=== PATIENT | male | born 1945 | race Caucasian/White ===

== ENCOUNTER 2020-03-09 13:30 | Outpatient (RCR) | payer MEDICARE, SELFPAY ==
--- NOTE | 2019-12-10 14:54 | PTOPEVAL ---
Thank you for referring Ky Winter to [facility]. Please review, sign, date and return this plan of care EDY. 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 He requires extensive therapy to address impairments of balance, strength, endurance, functional mobility and knowledge and use of prosthesis. Recommend additional PT 3x/wk x 8 wk. I agree with and certify that the following plan of care is medically necessary. Referring Physician Date Attending Provider: Jesus Trinh MD Referring Provider: *PT Outpatient Evaluation Start: 12/10/19 13:03 Freq: Status: Active Protocol: Document 12/10/19 13:05 CAP (Rec: 12/10/19 14:24 CAP [id number]) Therapy Assessment Status Assessment Status Assessment Status Evaluation Outpatient Past Medical History Past Medical History Source of Past Medical History Patient,Family/Significant Other Neurological History Hx Neurological Disorders No Significant History Cardiovascular History Hx Hypertension Yes Respiratory History Hx Respiratory Disorders No Significant History Gastrointestinal History Hx Gastrointestinal Disorders No Significant History Genitourinary History Hx Genitourinary Disorders No Significant History Musculoskeletal History Hx Amputation Yes: rea BKA Hx Joint Replacement Yes: rea TKR Evaluation Information Problem Diagnosis Rea BKA Cause PVD Additional Evaluation Detail rea TKR: right:10/14 and left: right and left 10/04/18 PVD rea shoulder impairments: receiving deep tissue lazer treatment for left shoulder. Subjective Information Reports his left foot started Query Text:As Reported By Patient/ to have pain and problems, Family developed osteomyelitis and then gangrene rea foot. He was provided shrinkers initially and then fitted for prosthesis 10/22/19. He was in [facility] following toe amp, then [place] for 2 wk for rehab and DC 10/19/18. He has been using a wc for primary mobility at home. He is performing daily UE resistance ex with theraband and resistance ex. He is unable to get in prone position. He is stretching in sidel
--- NOTE | 2020-01-09 16:22 | PTOPEVAL ---
Thank you for referring Ky Winter to [facility]. Please review, sign, date and return this plan of care EDY. Pt has received 14 therapy visits to address impairments related to his rea BKA. He is progressing with his functional mobility with improve balance, transfers and ambulation. He requires decreased assistance to manage his prosthesis. He is progressing towards his therapy goal. Cont PT 3x/wk x 4-6 wk. I agree with and certify that the following plan of care is medically necessary. Referring Physician Date Attending Provider: Jesus Trinh MD *PT Outpatient Evaluation Start: 12/10/19 13:03 Freq: Status: Active Protocol: Document 01/09/20 13:27 CAP (Rec: 01/09/20 14:25 CAP [email or web address]) Therapy Assessment Status Assessment Status Assessment Status Re-evaluation Evaluation Information Problem Diagnosis Rea BKA Cause PVD Additional Evaluation Detail rea TKR: right:10/14 and left: right and left 10/04/18 PVD rea shoulder impairments: receiving deep tissue lazer treatment for left shoulder. Subjective Information He is wearing his prosthesis Query Text:As Reported By Patient/ for 5 hours in the am and then Family again for 3-4 hours in the afternoon. He is walking daily in the house with his prosthesis. He cont to use the wc for primary mobility at home. He estimates he is walking 300-500 ft at home. Denies any increased pain with wearing the prosthesis at home. Ashlee made modification to ant tib region rea and rea femoral condyle region on rea prosthesis. Pain Assessment Timing of Pain Assessment Timing of Pain Assessment Re-assessment Pain Scale Pain Scale Used Numeric (1 - 10) Self Report Pain Assessment Bilateral Leg(s) Reported Pain Level 0 Pain Description Phantom Lowest Pain Intensity 0 Greatest Pain Intensity 4 Pain Score Pain Score 0: Self Report Lower Extremity Range of Motion Hip Range of Motion Left Hip Flexion Range of Motion - Active 90 Hip Extension Range of Motion - Active -10 Right Hip Flexion Range of Motion - Active 90 Hip Extension Range of Motion - Active -12 Lower Extremity Muscle Strength Testing Hip Strength Bilateral Hip Flexion S
--- NOTE | 2020-02-09 16:23 | PTOPEVAL ---
Thank you for referring Ky Winter to [facility]. Please review, sign, date and return this plan of care EDY. Pt has been seen for 26 therapy visits to address impairments related rea BKA prosthesis gait training. He demonstrates progress with functional mobility on sit<>stand, ambulation endurance, improved walking speed, and improve ability to negotiate steps and curb. He demonstrates improved understanding of application of prosthesis and sock ply to maintain proper fit. He is progressing towards his therapy goals and improved functional mobility. Recommend additional PT 2x/wk x 4 wk to achieve maximal potential. I agree with and certify that the following plan of care is medically necessary. Referring Physician Date Attending Provider: Jesus Trinh MD Re-Evaluation *PT Outpatient Evaluation Start: 12/10/19 13:03 Freq: Status: Active Protocol: Document 02/09/20 13:59 CAP (Rec: 02/09/20 14:56 CAP [email or web address]) Therapy Assessment Status Assessment Status Assessment Status Re-evaluation Evaluation Information Problem Diagnosis Rea BKA Cause PVD Additional Evaluation Detail rea TKR: right:10/14 and left: right and left 10/04/18 PVD rea shoulder impairments: receiving deep tissue lazer treatment for left shoulder. Subjective Information He reports he went out this Query Text:As Reported By Patient/ weekend and used his wc for Family mobility and did not perform community walking. He did more walking the house this weekend and side stepping at the counter. He is walking to/from the bathroom consistently. He walked the ramp more at home, but has not walked the incline on the driveway yet. He is going to hire a personal training to assist with gaining strength. He is wearing prosthesis 10-13 hours. Pain Assessment Timing of Pain Assessment Timing of Pain Assessment Re-assessment Pain Scale Pain Scale Used Numeric (1 - 10) Self Report Pain Assessment Bilateral Leg(s) Reported Pain Level 1 Pain Description Phantom Pain Frequency Chronic,Continuous Lowest Pain Intensity 1 Greatest Pain Intensity 2 Pain Score Pain Score 1: Self Report Lower Extremity Range of Motion Hip Range of Motion Left H
--- NOTE | 2020-03-09 16:13 | PTOPEVAL ---
Thank you for referring Ky Winter to [facility]. Please review, sign, date and return this plan of care EDY. Pt has received 34 therapy visits to address impairments related to rea BKA. He is progressing with his functional mobility with ambulation endurance, performance on steps and curb step. He is trialing progressing to a quad cane for household mobility. He remains limited with his ability to get out a chair. He requires additional PT 1x/wk x 4 wk to finalize treatment. I agree with and certify that the following plan of care is medically necessary. Referring Physician Date Attending Provider: Jesus Trinh MD Referring Provider: *PT Outpatient Evaluation Start: 12/10/19 13:03 Freq: Status: Active Protocol: Document 03/09/20 13:23 [facility] (Rec: 03/09/20 14:23 [facility] [email or web address]) Therapy Assessment Status Assessment Status Assessment Status Re-evaluation Evaluation Information Problem Diagnosis Rea BKA Cause PVD Additional Evaluation Detail rea TKR: right:10/14 and left: right and left 10/04/18 PVD rea shoulder impairments: receiving deep tissue lazer treatment for left shoulder. Subjective Information He is wearing 5 ply on right Query Text:As Reported By Patient/ and 6 ply on left. He is Family wearing prosthesis 12-13 hours without skin issues. Pt able to verbalize proper sock ply adjustment to ensure proper fit. His performs skin inspection of the limbs every night. His performs 50% of donning prosthesis. He is walking more at home in the house and outside with his ww and prosthesis. He has been able to set-up 2 chairs at home to sit on. He c/o back pain with prolonged standing and walking. Pain Assessment Timing of Pain Assessment Timing of Pain Assessment Re-assessment Pain Scale Pain Scale Used Numeric (1 - 10) Self Report Pain Assessment Bilateral Leg(s) Reported Pain Level 0 Pain Score Pain Score 0: Self Report Lower Extremity Muscle Strength Testing Hip Strength Bilateral Hip Flexion Strength 5 Normal Hip Extension Strength 4+ Good + Hip Abduction Strength 3+ Fair + Transfer Assessment Chair Transfer Assessment Chair Transfer Assistive Devices
--- NOTE | 2020-03-11 10:16 | PCPTNOTE ---
This treatment is being continued on visit number 35 on account [id number]. Please see documentation on both accounts to view progress. Completed interventions, outcomes, and problems have been marked as Inactive to facilitate the copying of the Care plan routine for recurring accounts.
== END 2020-03-09 23:59 | disposition home or self-care (01) ==
LOC: ANHPT 13:30
PROVIDERS: PCP Family Medicine Adolescent Medicine; Visit Provider Family Medicine Adolescent Medicine
DX: Z47.81 Encounter for orthopedic aftercare following surgical amputation (principal); Z89.512 Acquired absence of left leg below knee; Z89.511 Acquired absence of right leg below knee
CPT/HCPCS: 97110; 97116; 97163; 97530; 97761

== ENCOUNTER 2020-04-12 13:30 | Outpatient (RCR) | payer MEDICARE, SELFPAY ==
--- NOTE | 2020-03-11 10:07 | PCPTNOTE ---
The treatment documented on this account is a continuation of the treatment documented on visit number [id number]. Please see documentation on both accounts to view progress. The Plan of Care has been transitioned and updated within the new V#. I have addressed and agree with the discipline specific Problems, Interventions, and Goals for the current certification period. Completed interventions, outcomes, and problems have been marked as Inactive to facilitate the copying of the Care plan routine for recurring accounts.
--- NOTE | 2020-04-12 17:19 | PTOPEVAL ---
Thank you for referring Ky Winter to [facility] The patient has reached maximal potential with skilled therapy services at this time. Will DC skilled therapy with patient to continue with his home program. I agree with and certify that the following plan of care is medically necessary. Referring Physician Date Attending Provider: Jesus Trinh MD Referring Provider: Therapy Discharge Note *PT Outpatient Evaluation Start: 03/11/20 10:09 Freq: Status: Active Protocol: Document 04/12/20 13:34 CAP (Rec: 04/12/20 14:32 CAP [id number]) Therapy Assessment Status Assessment Status Assessment Status Re-evaluation Evaluation Information Problem Diagnosis Isaac BKA Cause PVD Additional Evaluation Detail isaac TKR: right:10/14 and left: right and left 10/04/18 PVD isaac shoulder impairments: receiving deep tissue lazer treatment for left shoulder. Subjective Information He is wearing 6 on right and Query Text:As Reported By Patient/ left prosthesis. He is wearing Family prosthesis all day without problems. His performs 50% of donning prosthesis. He continues to progress his walking more at home and outside with his ww and prosthesis. He c/o back pain with prolonged standing and walking. Reports he is walking 5 laps at the gym for 400 ft each with a rest between laps. He continues to work with the field sales trainer for LE and core strengthening. He continues to have difficulty getting out of a lower chair due to maintaining position of LE. He also has difficulty with desk length arm rest with his transfers. Pain Assessment Timing of Pain Assessment Timing of Pain Assessment Re-assessment Self Report Self Report Pain Level 0 Pain Scale Pain Scale Used Numeric (1 - 10) Pain Score Pain Score 0: Self Report Transfer Assessment Chair Transfer Assessment Chair Transfer Assistive Devices None Ambulation Assistive Devices Cane, Small Base Quad,Walker,
== END 2020-04-13 13:58 | disposition home or self-care (01) ==
LOC: ANHPT 13:30
PROVIDERS: PCP Family Medicine Adolescent Medicine; Visit Provider Family Medicine Adolescent Medicine
DX: Z47.81 Encounter for orthopedic aftercare following surgical amputation (principal); Z89.512 Acquired absence of left leg below knee; Z89.511 Acquired absence of right leg below knee
CPT/HCPCS: 97116; 97530

== ENCOUNTER 2022-09-28 23:15 | Inpatient (IN) | payer MEDICARE, SELFPAY ==
--- NOTE | ~2022-09-28 | CT_ITS ---
CT Abdomen and Pelvis with contrast. History: Abdominal pain. Spiral CT of the abdomen and pelvis was performed after the administration of intravenous contrast. 1 00 cc of Omnipaque 350 was administered intravenously without complication. Dose reduction technique was used on this scan by utilizing automated exposure control and iterative reconstruction technique. The dose-length product (DLP) was 1560.50 mGy-cm. Findings: Scans through the lung bases demonstrate mild atelectatic change. Several small hepatic cysts are present. The spleen, pancreas, gallbladder, and adrenal glands are wi thin normal limits. There is mild bilateral hydronephrosis. No evidence of aortic aneurysm. No lymph adenopathy is seen. There is no evidence of bowel obstruction. There is probable mild inflammatory change at the sigmoid colon with underlying diverticular disease, compatible with mild acute diverticulitis. No abscess or free air.. Images through the pelvis were performed. Urinary bladder unremarkable. Prostate gland and seminal ve sicles are unremarkable. No ascites is seen. Impression: Acute sigmoid diverticulitis. No abscess or free air. Mild bilateral hydronephrosis. Reviewed, dictated and finalized at location . 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 No abscess or free air. Mild bilateral hydronephrosis.
[2022-09-28 23:20] VITALS: BP 149/88; PULSE 120; RESP 20; TEMP 37.4; O2SAT 99
[2022-09-29] VITALS (22 sets, daily range): BP systolic 114–147; BP diastolic 35–101; PULSE 54–122; RESP 15–25; TEMP 37.1–37.3; O2SAT 95–100; BMI 55.7
[2022-09-29] MEDS: LACTATED RINGERS 1,000 ML 999 ML IV CONT ×2 (02:24→02:25)
[2022-09-29] MEDS: ONDANSETRON INJ 4 MG/2 ML VIAL IV PUSH (02:25)
[2022-09-29] MEDS: LOPERAMIDE HCL 2 MG CAPSULE 4 MG PO (02:33)
[2022-09-29 03:05] LABS: Basophils Absolute Auto 0.1 K/mm3 (0.0-0.1); Basophils Percent Auto 0.3 % (0.2-1.2); Eosinophils Percent Auto 0.1 % (0-4.4); Hematocrit 36.7 % (42.0-52.0); Hemoglobin 12.5 g/dL (14.0-18.0); Immature Granulocyte Percent A 0.5 % (0-0.5); Lymphocytes Absolute Auto 0.99 K/mm3 (0.9-3.2); Lymphocytes Percent Auto 5.2 % (18.3-44.2); Mean Corpuscular HGB Conc 34.1 g/dl (32-36); Mean Corpuscular Hemoglobin 30.2 pg (26-34); Mean Corpuscular Volume 88.6 fl (80-100); Mean Platelet Volume 9.1 fl (7.4-10.4); Monocytes Absolute Auto 2.2 K/mm3 (0.1-0.6); Monocytes Percent Auto 11.7 % (2.6-8.5); Neutrophils Absolute Auto 15.6 K/mm3 (1.3-6.7); Neutrophils Percent Auto 82.2 % (45.5-73.1); Platelet Count Result 235 k/mm3 (150-375); Red Blood Count 4.14 M/mm3 (4.6-6.20); Red Cell Distribution Width 13.3 % (11.5-14.5); White Blood Count 18.9 K/mm3 (4.5-10.0)
[2022-09-29 03:16] LABS: Lipase 25 U/L (23-300)
[2022-09-29 03:34] LABS: Alanine Aminotransferase 18 U/L (6-50); Albumin Level 3.8 g/dL (3.5-5.1); Alkaline Phosphatase 60 U/L (38-126); Anion Gap 4 mmol/L (8-16); Aspartate Amino Transferase 35 U/L (17-59); Bilirubin,Total 0.5 mg/dL (0.2-1.3); Blood Urea Nitrogen 7 mg/dL (9-20); Calcium 7.6 mg/dL (8.4-10.2); Carbon Dioxide 25 mmol/L (22-30); Chloride 88 mmol/L (98-107); Estimated CRCL calculation 129 ml/min; Estimated Glomerular Filt Rate > 60; Glucose 122 mg/dL (65-110); Sodium 117 mmol/L (137-145)
--- NOTE | 2022-09-29 04:16 | ECG_ITS ---
Measurements Intervals [place] Rate: 110 P: [place]: 0 QRS: 81 QRSD: 145 T: 28 QT: 320 QTc: 435 Interpretive Statements ATRIAL FIBRILLATION WITH RAPID VENTRICULAR RESPONSE RIGHT BUNDLE BRANCH BLOCK [120+ ms QRS DURATION, UPRIGHT V1, 40+ ms S IN I/aVL/V4/V5/V6] ABNORMAL ECG NO PREVIOUS ECG AVAILABLE FOR COMPARISON Electronically Signed On 09-29-2022 14:49:43 [employer] by Daniel Roman M.D.
[2022-09-29 04:52] LABS: Influenza A QL RT-PCR Negative (Negative); Influenza B QL RT-PCR Negative (Negative); RSV RNA, RT-PCR Negative (Negative); SARS-CoV-2 RNA PCR Negative
[2022-09-29 06:02] LABS: Sodium 125 mmol/L (137-145)
--- NOTE | 2022-09-29 06:11 | ED.NAVMDI ---
HPI - Nausea/Vomiting/Diarrhea General Chief complaint: Nausea/Vomiting/Diarrhea Stated complaint: diarrhea Time Seen by Provider: 09/29/22 02:14 History of Present Illness HPI Narrative: Patient has been started on multiple rounds of antibiotics including Augmentin, after which she had profuse diarrhea, he is now having some diarrhea that he is becoming extremely weak and cannot walk. Denies abdominal pain, fevers or chills. Related Data Home Medications Medication Instructions Recorded Confirmed aspirin 325 mg tablet 325 mg PO DAILY 03/28/21 09/29/22 coenzyme Q10 200 mg capsule 200 mg PO DAILY 03/28/21 09/29/22 cyclosporine 0.05 % eye drops 1 drp EACH EYE Q12H 03/28/21 09/29/22 diphenhydramine HCl 25 mg capsule 25 - 50 mg PO HS PRN Sleep 03/28/21 09/29/22 (Benadryl) docusate sodium 100 mg capsule 100 mg PO HS 03/28/21 09/29/22 (Colace) flaxseed oil 1,300 mg-omega 3,6,9 2 cap PO DAILY 03/28/21 09/29/22 845 mg-117 mg-117 mg capsule gabapentin 300 mg capsule 900 mg PO HS 03/28/21 09/29/22 sielggye-zlq-xylca acid 300 1 tablet PO DAILY 03/28/21 09/29/22 mcg-lycopene 600 mcg-lutein 300 mcg tablet (Centrum Silver Ultra Men's) vitamin B complex 1 tablet PO DAILY 03/28/21 09/29/22 melatonin 3 mg tablet 3 mg PO QHS PRN sleep 08/02/22 09/29/22 Allergies Allergy/AdvReac Type Severity Reaction Status Date / Time Opioids - Morphine Analogues AdvReac Severe severee Verified 08/02/22 13:52 itching augmentin AdvReac Intermediate Diarrhea Uncoded 09/22/22 10:09 Review of Systems Review of Systems: CONST: No fever. HEENT: No sore throat C/V: No chest pain RESP: No cough GI: Reports diarrhea : No dysuria. M/S: No joint pain. SKIN: No rash. NEURO: [No headache or focal numbness or weakness] PSYCH: [No depression] PMFSH Past Medical History Medical History Back pain BPH (benign prostatic hyperplasia) Cataracts, bilateral HTN (hypertension) Nocturia Normal colonoscopy 05/14 Repeat 05/25 Osteoarthritis of knees, bilateral Osteoarthritis of shoulders, bilateral Peripheral arterial disease Phantom pain Urinary incontinence Urinary urgency Surgical History Surgical History History of appendectomy History of inguinal hernia repair 2017 S/P bilateral below knee amputation 2018 Family History Family History Father Heart disease Hypertension Mother Acute myocardial infarction Social History Social History Social History: Patient lives with his in a 1 level home with 2 stairs to enter. Patient has a ramp that he uses. Patient was independent prior with no assistive devices prior to his bilateral below-knee amputation. 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 Smoking status: Never smoker Second hand tobacco smoke exposure: No Alcohol intake: current Drinks per week: 7 Alcohol use details: one glass wine ,per week Substance use type: does not use Living arrangements: with family Occupation/Education: retired Gender identity (if verbalized by the patient): Male Sexual Orientation (if Verbalized by the Patient): Straight or Heterosexual Agree to blood products: Yes Exam Narrative: EXAMINATION OF ORGAN SYSTEMS/BODY AREAS: Constitutional: Vital signs per nursing GENERAL:[No acute distress, non-toxic appearing.] HEAD: Normal with no signs of head trauma. EYES: EOMI, conjunctiva normal ENT: Hearing grossly intact LUNGS: Nonlabored breathing. HEART: [Regular rate and rhythm] ABD: [Soft], [mildly tender to palpation especially lower abdomen] EXT: Bilateral BKA without any signs of infection or tenderness SKIN: [No rashes or lesions.] NEURO: [Alert and oriented x 3. No gross focal sensory or strength deficits.] PSYCH: Normal affect Course [place]
[2022-09-29 06:56] LABS: Anion Gap 3 mmol/L (8-16); Blood Urea Nitrogen 6 mg/dL (9-20); Calcium 7.5 mg/dL (8.4-10.2); Carbon Dioxide 27 mmol/L (22-30); Chloride 91 mmol/L (98-107); Estimated CRCL calculation 110 ml/min; Estimated Glomerular Filt Rate > 60; Glucose 122 mg/dL (65-110); Potassium 4.3 mmol/L (3.4-5.0); Sodium 121 mmol/L (137-145)
--- NOTE | 2022-09-29 06:58 | PC.NURSE ---
Pt cleaned up x3 from incontinent bowel movements. Linens and brief changed. Pt remains resting in bed. NAD noted at this time. Will continue to monitor.
[2022-09-29 08:27] LABS: Toxigenic C. Diff POSITIVE (NEGATIVE)
--- NOTE | 2022-09-29 08:34 | PC.NURSE ---
Notify Dr. Andrade regarding sodium level.
--- NOTE | 2022-09-29 11:20 | ADMGEN ---
This patient, Ky Winter, was admitted to 2 Medical Room 256-01. Patient/family oriented to hospital policies and general routines including ID bracelet, bed and alarms, visiting hours, pain management, procedures, bathroom and other care routines, personal items, smoking policy, room service/diet, and visiting hours. Information on how to activate the Rapid Response Team has been discussed. Patient/Family are encouraged to report perceived risks to care and to ask questions if they do not understand what they are told or what they should do.
--- NOTE | 2022-09-29 13:07 | PM.CNNEP ---
Assessment and Plan Assessment and plan (1) Hyponatremia: Code(s): E87.1 - Hypo-osmolality and hyponatremia Status: Acute Assessment and Plan: acute suspicion falls on hypovolemia secondary to GI losses improvement noted with IVF resuscitation goal of therapy is a rate of change of 6 - 8mmol/L in 24 hours check TSH, cortisol, SPEP, UPEP, and serum/urine osmo check urine electrolytes restart normal saline follow serial sodium levels (2) C. difficile colitis: Code(s): A04.72 - Enterocolitis due to Clostridium difficile, not specified as recurrent Status: Acute Assessment and Plan: positive by stool testing started on oral vancomycin supportive care (3) HTN (hypertension): Code(s): I10 - Essential (primary) hypertension Status: Chronic Assessment and Plan: reasonable control at this time follow trend of hemodynamics Long extensive discussion (greater than 20 minutes) with the patient as well as at bedside with regard to the nature of his hyponatremia, the necessity of frequent blood work/tests to ensure adequate and appropriate correction of his electrolyte as well as close monitoring in general. They both appeared voiced understanding. Will continue to follow. History of Present Illness Reason for Consult Consult date: 09/29/22 Reason for consult: hyponatremia Chief Complaint Chief complaint: AFIB RVR, Dehydration, Colitis, HypoNa History of Present Illness Narrative: The patient is a 77-year-old male with a past medical history as outlined below who presented to [facility] Emergency room for further evaluation of ongoing diarrhea. According to the patient and his , he has been treated with at least three separate rounds of antibiotics for treatment of a possible cellulitis of his amputation stump. On his 2nd round of antibiotics, he developed diarrhea and he was subsequently switched to another antibiotic on the assumption that this was a side effect from the medication. However he continued to have diarrhea even after the medication change. He reports that his stools are quite watery and occurred at least three to 4 times a day if not more. No apparent evidence of blood but he has noticed a significant amount of diarrhea that seems to be getting worse. He denies any nausea or vomiting associated with the diarrhea. His major concern has been that with the ongoing diarrhea he is becoming increasingly weak and fatigued to the point where he is unable to ambulate as he normally does. He also reports some mild lightheadedness with position changes as well. Given these constellation of symptoms, he presented to the ER for further assessment. Workup and evaluation in the emergency room demonstrated the patient to be hemodynamically stable although he was slightly tachycardic but he also has a history of atrial fibrillation. Routine blood tests were significant for a marked leukocytosis and a sodium of 117. given the history as provided, there was a concern for significant volume depletion and he received 2 L of IV fluids in the emergency room with improvement in his heart rate and some mild improvement in his sodium level as well. Stool studies were ordered on the assumption of C diff colitis being the etiology of his diarrhea and he was empirically started on oral vancomycin as well. He was subsequently admitted to the hospital for further evaluation and therapy Since his admission, he appears to be doing reasonably well other than some discomfort with placement of his Castro catheter that was done in the ER. He appears to have no neurological sequelae with regard to his low sodium level and as far as he is aware, he has never had this issue/problem before. Renal consultation was requested due to his acute hyponatremia. As mentioned, he has never had any issues or problems with hyponatremia in the past and his recent blood test done in th
[2022-09-29] MEDS: VANCOMYCIN ORAL 125 MG/2.5 ML SYRUP PO ×2 (13:54→18:13)
[2022-09-29 15:37] LABS: Anion Gap 4 mmol/L (8-16); Blood Urea Nitrogen 6 mg/dL (9-20); Calcium 7.4 mg/dL (8.4-10.2); Carbon Dioxide 29 mmol/L (22-30); Chloride 89 mmol/L (98-107); Estimated Glomerular Filt Rate > 60; Glucose 107 mg/dL (65-110); Potassium 4.2 mmol/L (3.4-5.0); Sodium 122 mmol/L (137-145)
[2022-09-29] MEDS: SODIUM CHLORIDE 0.9% IV 1,000 ML 50 ML IV CONT (18:14)
[2022-09-29 19:41] LABS: Anion Gap 2 mmol/L (8-16); Blood Urea Nitrogen 7 mg/dL (9-20); Calcium 7.2 mg/dL (8.4-10.2); Carbon Dioxide 29 mmol/L (22-30); Chloride 90 mmol/L (98-107); Estimated Glomerular Filt Rate > 60; Glucose 141 mg/dL (65-110); Potassium 3.8 mmol/L (3.4-5.0); Sodium 121 mmol/L (137-145)
--- NOTE | 2022-09-29 20:04 | PC.NURSE ---
Dr Gay notified about pt's sodium level of 121 @ 19:55. No new orders.
[2022-09-29 23:15] LABS: Sodium 126 mmol/L (137-145)
--- NOTE | 2022-09-29 23:21 | PC.NURSE ---
Dr Gay notified about pt's Sodium level of 126
[2022-09-30] VITALS (10 sets, daily range): BP systolic 110–145; BP diastolic 49–64; PULSE 72–91; RESP 14–20; TEMP 36.6–37; O2SAT 94–98
--- NOTE | 2022-09-30 01:26 | PM.IMHP ---
H&P: HPI History of Present Illness Date/Time: 09/30/22 01:26 Chief Complaint: Diarrhea Narrative: 77-year-old male with past medical history of bilateral lower extremity BKA, hypertension, hyperlipidemia, peripheral artery disease and phantom pain syndrome who presented to the ER with diarrhea. The patient had evidently been treated with antibiotics 3 times this month. The patient was evidently having some erythema is stump site and was treated for cellulitis. He received antibiotics with amoxicillin for a couple of days earlier in the month. Then on the he was treated with Augmentin for 4 days. He developed diarrhea and was switched to Keflex. Then the patient continued to have diarrhea. Stools were watery and occurring at least 3 to 4 times a day. They were nonbloody and brown but large volume. He denied any associated abdominal pain. He denies any associated nausea or vomiting. He has become so weak that he cannot walk. He ambulates with his prosthetics and canes. He was having some lightheadedness with position changes. He denies any associated fevers or chills. In the ER he was found to be profoundly hyponatremic with a sodium of 117 andmarked leukocytosis and AFib RVR. He received 2 L LR for fluid resuscitation with improvement in his heart rate down to the 90s to low 100s. He denied any significant palpitations. He has not had any lower extremity swelling. In the ER Castro catheter was placed. The patient states that he has chronic urinary frequency at night but was not having difficulty emptying his bladder. In the ER Castro was placed but was traumatic. It took 2 attempts the patient has dried blood at is meatus. He reports that it is extremely painful if he tries to urinate with the catheter in. He does have a history of BPH but states that he usually empties his bladder. His main complaint is more nocturia which is chronic and not a new problem. Review of Systems Review of Systems: 12 systems were reviewed with pertinent positives and negatives per HPI. Except as documented in the HPI, all other systems were reviewed and are negative. [facility] Past Medical History Medical History (Updated 09/30/22 @ 01:29 by Alexia Baltazar DO) Back pain BPH (benign prostatic hyperplasia) Cataracts, bilateral maturing HTN (hypertension) Hyperlipemia Normal colonoscopy 05/14 Repeat 05/25 Optic nerve atrophy Osteoarthritis of knees, bilateral Osteoarthritis of shoulders, bilateral Peripheral arterial disease Phantom pain Surgical History Surgical History (Updated 09/30/22 @ 01:29 by Alexia Baltazar DO) History of appendectomy History of inguinal hernia repair 2017 History of right knee joint replacement S/P bilateral below knee amputation 2018 Family History Family History Father Heart disease Hypertension Mother Acute myocardial infarction Social History Social History Social History: Patient lives with his in a 1 level home with 2 stairs to enter. Patient has a ramp that he uses. Patient was independent prior with no assistive devices prior to his bilateral below-knee amputation. Patient was also working full-time in the [employer] industry. Smoking status: Never smoker Second hand tobacco smoke exposure: No Alcohol intake: current Drinks per week: 14 Alcohol use details: 1-2 glasses of wine daily Substance use: never Lack of Transportation: No Lack of Food: Never True Current Housing: I Have Housing Concerned About Future Housing: No Difficulty Paying Gas/Electric Bills: No Difficulty Paying for Meds: No Currently Unemployed: No Education: Bachelor's Degree Difficulty w/ Childcare or Family Care: No Living arrangements: with family Occupation/Education: retired Gender identity (if verbalized by the patient): Male Sexual Orientation (if Verbalized
[2022-09-30 01:45] LABS: Creatinine Urine 175.5 mg/dL; Total Protein Urine Random 84 mg/dL; Ur Ttl Prot Creatinine Ratio 0.48 mg/mg (0-0.20); Urea Random Urine 888 MG/DL
[2022-09-30] MEDS: VANCOMYCIN ORAL 125 MG/2.5 ML SYRUP PO ×5 (02:06→23:21)
[2022-09-30] MEDS: GABAPENTIN 300 MG CAPSULE 600 MG PO ×4 (02:07→21:19)
[2022-09-30 03:43] LABS: Anion Gap 2 mmol/L (8-16); Blood Urea Nitrogen 6 mg/dL (9-20); Calcium 7.1 mg/dL (8.4-10.2); Carbon Dioxide 29 mmol/L (22-30); Chloride 96 mmol/L (98-107); Creatine Kinase 83 U/L (55-170); Estimated Glomerular Filt Rate > 60; Glucose 102 mg/dL (65-110); Phosphorus 2.1 mg/dL (2.5-4.5); Potassium 3.9 mmol/L (3.4-5.0); Sodium 127 mmol/L (137-145)
--- NOTE | 2022-09-30 04:58 | PC.NURSE ---
Dr Gay notified about sodium level of 127 @ 04:15. New orders received for D5w @ 200 cc/h for 2 hours, and renal function panel upon completion. New orders entered.
[2022-09-30 05:40] LABS: Free T4 Free Thyroxine Reflex 1.25 ng/dL (0.78-2.19)
[2022-09-30 06:04] LABS: Hematocrit 33.9 % (42.0-52.0); Hemoglobin 11.4 g/dL (14.0-18.0); Mean Corpuscular HGB Conc 33.6 g/dl (32-36); Mean Corpuscular Hemoglobin 29.8 pg (26-34); Mean Corpuscular Volume 88.7 fl (80-100); Mean Platelet Volume 9.4 fl (7.4-10.4); Platelet Count Result 259 k/mm3 (150-375); Red Blood Count 3.82 M/mm3 (4.6-6.20); Red Cell Distribution Width 13.4 % (11.5-14.5); White Blood Count 13.2 K/mm3 (4.5-10.0)
[2022-09-30 06:21] LABS: Total Triiodothyronine (T3) 0.91 NG/ML (0.97-1.69)
[2022-09-30 07:12] LABS: Anion Gap 2 mmol/L (8-16); Blood Urea Nitrogen 5 mg/dL (9-20); Carbon Dioxide 27 mmol/L (22-30); Chloride 98 mmol/L (98-107); Estimated Glomerular Filt Rate > 60; Glucose 97 mg/dL (65-110); Phosphorus 2.4 mg/dL (2.5-4.5); Potassium 4.1 mmol/L (3.4-5.0); Sodium 127 mmol/L (137-145)
[2022-09-30] MEDS: cycloSPORINE 0.4 ML OPHTH SOLUTION 1 DROP EACH EYE ×2 (09:02→21:20)
[2022-09-30] MEDS: VITAMIN B COMPLEX CAPSULE 1 CAP PO (09:03)
[2022-09-30] MEDS: MIRABEGRON 50 MG ER TABLET PO (09:03)
[2022-09-30] MEDS: ASPIRIN 325 MG TABLET PO (09:03)
[2022-09-30] MEDS: CLOPIDOGREL BISULFATE 75 MG TABLET PO (09:03)
[2022-09-30] MEDS: FINASTERIDE 5 MG TABLET PO (09:03)
[2022-09-30] MEDS: LOSARTAN POTASSIUM 100 MG TABLET PO (09:03)
[2022-09-30] MEDS: ACYCLOVIR 400 MG TABLET PO ×2 (09:04→17:26)
[2022-09-30] MEDS: NEBIVOLOL HCL 5 MG TABLET 10 MG PO (09:04)
[2022-09-30] MEDS: TAMSULOSIN HCL 0.4 MG CAPSULE PO (09:04)
[2022-09-30] MEDS: amLODIPine BESYLATE 5 MG TABLET PO (09:04)
[2022-09-30] MEDS: DEXTROSE 5% IN WATER 500 ML 200 ML IV CONT (09:05)
[2022-09-30] MEDS: OPTI-GEN TAB 1 TABLET PO (09:11)
[2022-09-30] MEDS: SIMVASTATIN 10 MG TABLET PO (09:11)
--- NOTE | 2022-09-30 12:57 | PM.IMPN ---
Progress Note: A&P Assessment and Plan (1) C. difficile colitis: Code(s): A04.72 - Enterocolitis due to Clostridium difficile, not specified as recurrent Status: Acute Assessment and Plan: Continue p.o. vancomycin. Monitor stool output. Avoid (2) Acute hyponatremia: Code(s): E87.1 - Hypo-osmolality and hyponatremia Status: Acute Assessment and Plan: The patient's sodium increased [id number] after 2 L of LR. Nephrology was consulted by my self. I discussed the patient's case with Nephrology who agreed with plan to hold any other fluids until repeat sodium levels are available. We would want to avoid rapid over-correction of sodium. Will check serial electrolyte panels. (3) Acute dehydration: Code(s): E86.0 - Dehydration Status: Acute Assessment and Plan: The patient responded well to the initial 2 L fluid bolus and heart rate has improved. Urine output has been adequate. Monitor I&O's closely. ER had placed a Castro catheter although the patient was not having symptoms of retention and has chronic nocturia. Will discontinue Castro catheter at this time. If the patient needs we may use a pure wick system to obtain strict I&O's if patient is having difficulty with urinary incontinence. (4) BPH (benign prostatic hyperplasia): Code(s): N40.0 - Benign prostatic hyperplasia without lower urinary tract symptoms Status: Acute Assessment and Plan: Given the patient's history of BPH when we take the patient's catheter on he may have recurrent urinary retention. He will need to be monitored for this. The patient is having significant discomfort with the Castro catheter in place. Catheter will be removed. Will continue patient's home Proscar and Flomax Plan Hyponatremia likely from volume depletion improving na 127 this mornign continue IVF per nephrology monitor C diff colitis improving continue oral Vanc monitor Dehydration continue IVF as above monitor BPH Continue home Tamsulosin monitor PAD double amputation Phantom pain DVT prohylaxis Sub lovenox Subjective Date/time seen: 09/30/22 12:57 Presented to the ER because of frequent fall and diarrhea. Hyponatremia noted in the ER, Stool studies obtain and PO Vancomycin started. apparently he had a traumatic catheterization in the ER and later removed, he is back on his home tamsulosin. stated diarrhea has resolved. Review of Systems Review of Systems: All systems reviewed & are unremarkable except as noted in HPI and below Exam Narrative: Weight 104.8 kg BMI 55.7 Alert and oriented in no acute distress RS: clear to ausculation GI no tender, non distended, no palpable mass and BS present CVS S1 and S2, present, RRR no murmurs EXtremities bilateral LE amputation NEuro: alert and oriented and non focal SKin: No rash or ulcer noted. Const: Other: No acute distress, morbidly obese, lying flat in bed with snoring respirations HENMT: Other: Mucous membranes are tacky, no oral pharyngeal erythema, crowded posterior oropharynx positive conjunctival pallor, head is normocephalic atraumatic Eyes: Other: Pupils are equal and reactive, positive conjunctival pallor, no scleral icterus, developing cataract Neck: Other: Large neck circumference, no JVD Resp: Other: Clear to auscultation bilaterally, no increased work of breathing Cardio: Other: Irregularly irregular, rate controlled, 2+ bilateral radial pulses GI: Other: Obese, nontender, normoactive bowel sounds, no organomegaly : Other: Castro catheter in place with dark yellow urine, blood at the ureteral meatus. Skin: Other: No erythema of the bilateral lower extremity stumps, no jaundice, no pallor Neuro: Other: Alert oriented x4, speech is clear, no facial asymmetry, no localizing neurologic deficits noted during the course of casual conversation Extrem: Other:
[2022-09-30 13:06] LABS: Sodium 126 mmol/L (137-145)
--- NOTE | 2022-09-30 13:38 | PM.PNNEP ---
Progress Note: A&P Assessment and Plan (1) Hyponatremia: Code(s): E87.1 - Hypo-osmolality and hyponatremia Status: Acute Assessment and Plan: acute suspicion falls on hypovolemia secondary to GI losses improvement noted with IVF resuscitation goal of therapy is a rate of change of 6 - 8mmol/L in 24 hours rate of change was a bit higher than this so s/p D5W IVFs evaluation to date: TSH okay cortisol not done - will re-order SPE/UPE and serum/urine osmo pending urine sodium not done follow serial sodium levels (2) C. difficile colitis: Code(s): A04.72 - Enterocolitis due to Clostridium difficile, not specified as recurrent Status: Acute Assessment and Plan: positive by stool testing started on oral vancomycin supportive care (3) HTN (hypertension): Code(s): I10 - Essential (primary) hypertension Status: Chronic Assessment and Plan: reasonable control at this time follow trend of hemodynamics Will continue to follow. Subjective Date/time seen: 09/30/22 13:38 Appears to be doing relatively well with his only real complaint being the heart healthy diet -- stools appear to be more formed at this time; due concerns of overcorrection with regard to his hyponatremia, he has been receiving intermittent infusions of D5W to slow down the rate of change in his sodium; otherwise, he appears in no apparent distress. Exam Narrative: General: WD/WN male in NAD Heart: normal S1 and S2; no rub Lungs: clear to auscultation Abdomen: soft, nontender, nondistended, positive bowel sounds Extremities:no evidence of cyanosis, clubbing, or edema; bilateral BKA Skin: warm and dry Objective Data Vital Signs Vital Signs: Vital Signs Temp Pulse Resp BP Pulse Ox O2 Del Method 09/30/22 12:04 72 09/30/22 08:00 81 09/30/22 13:11 Room Air 09/30/22 09:03 Room Air 09/30/22 09:04 83 09/30/22 04:00 73 09/30/22 00:00 91 09/30/22 04:18 97.8 F 77 20 145/49 H 98 09/29/22 20:00 81 20 95 Room Air 09/29/22 19:34 99.2 F 81 20 122/49 L 95 Intake/Output Intake/Output: Intake & Output 02/01/23 02/02/23 02/03/23 02/04/23 23:59 23:59 23:59 23:59 Intake Total 2810 1270 Output Total 1150 300 Balance 1660 970 Meds/Results Medications: Active Medications Generic Name Dose Route Start Last Admin Trade Name Freq PRN Reason Stop Dose Admin Acyclovir 400 mg 09/30/22 09:00 09/30/22 09:04 Acyclovir 400 Mg Tablet PO 400 mg BID DAVID Administration Amlodipine Besylate 5 mg 09/30/22 09:00 09/30/22 09:04 Amlodipine Besylate 5 Mg Tablet PO 5 mg DAILY DAVID Administration Aspirin 325 mg 09/30/22 09:00 09/30/22 09:03 Aspirin 325 Mg Tablet PO 325 mg DAILY DAVID Administration Clopidogrel Bisulfate 75 mg 09/30/22 09:00 09/30/22 09:03 Clopidogrel Bisulfate 75 Mg Tablet PO 75 mg DAILY DAVID Administration Cyclosporine 1 drop 09/29/22 22:00 09/30/22 09:02 Cyclosporine 0.4 Ml Ophth Solution EACH EYE 1 drop Q12HR DAVID Administration Enoxaparin Sodium 40 mg 10/01/22 09:00 Enoxaparin 40 Mg/0.4 Ml Syringe SUB-Q DAILY DAVID Finasteride 5 mg 09/30/22 09:00 09/30/22 09:03 Finasteride 5 Mg Tablet PO 5 mg DAILY DAVID Administration Gabapentin 600 mg 09/29/22 22:00 09/30/22 12:27 Gabapentin 300 Mg Capsule PO 600 mg 0800,1200,2100 DAVID Administration Gabapentin 300 mg 09/30/22 17:00 Gabapentin 300 Mg Capsule PO 1700 DAVID Dextrose 500 mls @ 250 mls/hr 09/30/22 14:45 09/30/22 15:10 Dextrose 5% In Water IV CONT 09/30/22 16:44 250 mls/hr .Q2H DAVID Administration Losartan Potassium 100 mg 09/30/22 09:00 09/30/22 09:03 Losartan Potassium 100 Mg Tablet PO 100 mg DAILY DAVID Administration Melatonin 3 mg 09/29/22 21:50 Melatonin 3 Mg Tablet PO QHS PRN sleep Micona
[2022-09-30] MEDS: DEXTROSE 5% IN WATER 500 ML 250 ML IV CONT (15:10)
[2022-09-30] MEDS: GABAPENTIN 300 MG CAPSULE PO (17:26)
[2022-09-30 18:17] LABS: Sodium 126 mmol/L (137-145)
[2022-09-30] MEDS: traMADol HCL (*CRX) 50 MG TABLET PO (21:18)
[2022-09-30] MEDS: SODIUM CHLORIDE 0.9% IV 1,000 ML 50 ML IV CONT (21:30)
[2022-10-01] VITALS (10 sets, daily range): BP systolic 117–140; BP diastolic 48–65; PULSE 69–82; RESP 14–24; TEMP 36.8–37.6; O2SAT 95–99
[2022-10-01 01:06] LABS: Sodium 121 mmol/L (137-145)
[2022-10-01] MEDS: VANCOMYCIN ORAL 125 MG/2.5 ML SYRUP PO ×3 (05:51→17:38)
[2022-10-01 06:12] LABS: Basophils Absolute Auto 0.1 K/mm3 (0.0-0.1); Basophils Percent Auto 0.5 % (0.2-1.2); Eosinophils Absolute Auto 0.3 K/mm3 (0-0.3); Eosinophils Percent Auto 2.8 % (0-4.4); Hematocrit 32.4 % (42.0-52.0); Hemoglobin 10.7 g/dL (14.0-18.0); Immature Granulocyte Absolute 0.05 K/mm3 (0.00-0.031); Immature Granulocyte Percent A 0.5 % (0-0.5); Lymphocytes Absolute Auto 0.88 K/mm3 (0.9-3.2); Lymphocytes Percent Auto 9.3 % (18.3-44.2); Mean Corpuscular Hemoglobin 29.3 pg (26-34); Mean Corpuscular Volume 88.8 fl (80-100); Mean Platelet Volume 8.9 fl (7.4-10.4); Monocytes Absolute Auto 1.1 K/mm3 (0.1-0.6); Monocytes Percent Auto 11.9 % (2.6-8.5); Neutrophils Absolute Auto 7.1 K/mm3 (1.3-6.7); Platelet Count Result 245 k/mm3 (150-375); Red Blood Count 3.65 M/mm3 (4.6-6.20); Red Cell Distribution Width 13.3 % (11.5-14.5); White Blood Count 9.5 K/mm3 (4.5-10.0)
[2022-10-01 06:28] LABS: Alanine Aminotransferase 23 U/L (6-50); Albumin Level 2.8 g/dL (3.5-5.1); Alkaline Phosphatase 47 U/L (38-126); Anion Gap 3 mmol/L (8-16); Aspartate Amino Transferase 26 U/L (17-59); Bilirubin,Total 0.4 mg/dL (0.2-1.3); Blood Urea Nitrogen 6 mg/dL (9-20); Carbon Dioxide 27 mmol/L (22-30); Chloride 96 mmol/L (98-107); Estimated Glomerular Filt Rate > 60; Glucose 95 mg/dL (65-110); Potassium 3.6 mmol/L (3.4-5.0); Sodium 126 mmol/L (137-145)
--- NOTE | 2022-10-01 07:57 | PC.NURSE ---
[employer] justyn Na level- result- 121. Dr. Corrales called - message left. No return call received. 0600 Na level returned at 126. Continue to monitor
[2022-10-01] MEDS: amLODIPine BESYLATE 5 MG TABLET PO (08:44)
[2022-10-01] MEDS: GABAPENTIN 300 MG CAPSULE 600 MG PO ×3 (08:44→20:51)
[2022-10-01] MEDS: ASPIRIN 325 MG TABLET PO (08:45)
[2022-10-01] MEDS: cycloSPORINE 0.4 ML OPHTH SOLUTION 1 DROP EACH EYE ×2 (08:45→20:52)
[2022-10-01] MEDS: MIRABEGRON 50 MG ER TABLET PO (08:45)
[2022-10-01] MEDS: CLOPIDOGREL BISULFATE 75 MG TABLET PO (08:45)
[2022-10-01] MEDS: NEBIVOLOL HCL 5 MG TABLET 10 MG PO (08:45)
[2022-10-01] MEDS: OPTI-GEN TAB 1 TABLET PO (08:45)
[2022-10-01] MEDS: LOSARTAN POTASSIUM 100 MG TABLET PO (08:45)
[2022-10-01] MEDS: FINASTERIDE 5 MG TABLET PO (08:46)
[2022-10-01] MEDS: SIMVASTATIN 10 MG TABLET PO (08:46)
[2022-10-01] MEDS: ENOXAPARIN 40 MG/0.4 ML SYRINGE SUB-Q (08:46)
[2022-10-01] MEDS: ACYCLOVIR 400 MG TABLET PO ×2 (08:46→17:36)
[2022-10-01] MEDS: TAMSULOSIN HCL 0.4 MG CAPSULE PO (08:46)
[2022-10-01] MEDS: VITAMIN B COMPLEX CAPSULE 1 CAP PO (09:43)
--- NOTE | 2022-10-01 10:58 | PM.IMPN ---
Progress Note: A&P Assessment and Plan (1) C. difficile colitis: Code(s): A04.72 - Enterocolitis due to Clostridium difficile, not specified as recurrent Status: Acute Assessment and Plan: Continue p.o. vancomycin. Monitor stool output. Avoid (2) Acute hyponatremia: Code(s): E87.1 - Hypo-osmolality and hyponatremia Status: Acute Assessment and Plan: The patient's sodium increased [id number] after 2 L of LR. Nephrology was consulted by my self. I discussed the patient's case with Nephrology who agreed with plan to hold any other fluids until repeat sodium levels are available. We would want to avoid rapid over-correction of sodium. Will check serial electrolyte panels. (3) Acute dehydration: Code(s): E86.0 - Dehydration Status: Acute Assessment and Plan: The patient responded well to the initial 2 L fluid bolus and heart rate has improved. Urine output has been adequate. Monitor I&O's closely. ER had placed a Castro catheter although the patient was not having symptoms of retention and has chronic nocturia. Will discontinue Castro catheter at this time. If the patient needs we may use a pure wick system to obtain strict I&O's if patient is having difficulty with urinary incontinence. (4) BPH (benign prostatic hyperplasia): Code(s): N40.0 - Benign prostatic hyperplasia without lower urinary tract symptoms Status: Acute Assessment and Plan: Given the patient's history of BPH when we take the patient's catheter on he may have recurrent urinary retention. He will need to be monitored for this. The patient is having significant discomfort with the Castro catheter in place. Catheter will be removed. Will continue patient's home Proscar and Flomax Plan Hyponatremia likely from volume depletion improving na 126 this mornign Increase NS to 100/hr Nephrology monitor C diff colitis improving, diarrhea resolving continue oral Vanc monitor Dehydration continue IVF as above monitor BPH Continue home Tamsulosin monitor PAD double amputation Phantom pain DVT prophylaxis Sub lovenox Subjective Date/time seen: 10/01/22 10:58 Presented to the ER on account of her frequent falls and diarrhea. Evaluation showed hyponatremia and severe colitis. On oral vancomycin on IV fluid, sodium 126 this morning increased MS 100/hr. Nephrology following. Awaiting normalization of her sodium for discharge. Review of Systems Review of Systems: All systems reviewed & are unremarkable except as noted in HPI and below Exam Narrative: Alert and oriented in no acute distress RS: clear to ausculation GI no tender, non distended, no palpable mass and BS present CVS S1 and S2, present, RRR no murmurs EXtremities bilateral LE amputation NEuro: alert and oriented and non focal SKin: No rash or ulcer noted. Const: Other: No acute distress, morbidly obese, lying flat in bed with snoring respirations HENMT: Other: Mucous membranes are tacky, no oral pharyngeal erythema, crowded posterior oropharynx positive conjunctival pallor, head is normocephalic atraumatic Eyes: Other: Pupils are equal and reactive, positive conjunctival pallor, no scleral icterus, developing cataract Neck: Other: Large neck circumference, no JVD Resp: Other: Clear to auscultation bilaterally, no increased work of breathing Cardio: Other: Irregularly irregular, rate controlled, 2+ bilateral radial pulses GI: Other: Obese, nontender, normoactive bowel sounds, no organomegaly : Other: Castro catheter in place with dark yellow urine, blood at the ureteral meatus. Skin: Other: No erythema of the bilateral lower extremity stumps, no jaundice, no pallor Neuro: Other: Alert oriented x4, speech is clear, no facial asymmetry, no localizing neurologic deficits noted during the course of casual conversation Extrem: Other:
--- NOTE | 2022-10-01 12:11 | PM.PNNEP ---
Progress Note: A&P Assessment and Plan (1) Hyponatremia: Code(s): E87.1 - Hypo-osmolality and hyponatremia Status: Acute Assessment and Plan: acute suspicion falls on hypovolemia secondary to GI losses improvement noted with IVF resuscitation goal of therapy is a rate of change of 6 - 8mmol/L in 24 hours evaluation to date: TSH okay cortisol not done - will re-order SPE/UPE and serum/urine osmo pending urine sodium not done follow serial sodium levels (2) C. difficile colitis: Code(s): A04.72 - Enterocolitis due to Clostridium difficile, not specified as recurrent Status: Acute Assessment and Plan: positive by stool testing on oral vancomycin supportive care (3) HTN (hypertension): Code(s): I10 - Essential (primary) hypertension Status: Chronic Assessment and Plan: reasonable control at this time follow trend of hemodynamics Will continue to follow. Subjective Date/time seen: 10/01/22 12:11 No new issues or problems to report at this time; sodium level stabilizing/improving with current interventions to date; stools appear to be more formed in comparison to david diarrhea on presentation/admission; no other issues/events overnight or earlier this admission. Exam Narrative: General: WD/WN male in NAD Heart: normal S1 and S2; no rub Lungs: clear to auscultation Abdomen: soft, nontender, nondistended, positive bowel sounds Extremities:no evidence of cyanosis, clubbing, or edema; bilateral BKA Skin: warm and intact Objective Data Vital Signs Vital Signs: Vital Signs Temp Pulse Resp BP Pulse Ox O2 Del Method 10/01/22 10:00 Room Air 10/01/22 08:45 74 10/01/22 04:00 80 10/01/22 06:00 98.5 F 69 14 127/60 95 10/01/22 00:00 75 09/30/22 20:45 76 09/30/22 22:00 98.6 F 76 16 134/64 94 09/30/22 16:00 72 09/30/22 15:00 97.9 F 72 14 110/51 L 97 09/30/22 12:04 72 09/30/22 13:11 Room Air Intake/Output Intake/Output: Intake & Output 09/28/22 09/29/22 09/30/22 10/01/22 23:59 23:59 23:59 23:59 Intake Total 2810 2130 240 Output Total 1150 710 660 Balance 1660 1420 -420 Meds/Results Medications: Active Medications Generic Name Dose Route Start Last Admin Trade Name Freq PRN Reason Stop Dose Admin Acyclovir 400 mg 09/30/22 09:00 10/01/22 08:46 Acyclovir 400 Mg Tablet PO 400 mg BID DAVID Administration Amlodipine Besylate 5 mg 09/30/22 09:00 10/01/22 08:44 Amlodipine Besylate 5 Mg Tablet PO 5 mg DAILY DAVID Administration Aspirin 325 mg 09/30/22 09:00 10/01/22 08:45 Aspirin 325 Mg Tablet PO 325 mg DAILY DAVID Administration Clopidogrel Bisulfate 75 mg 09/30/22 09:00 10/01/22 08:45 Clopidogrel Bisulfate 75 Mg Tablet PO 75 mg DAILY DAVID Administration Cyclosporine 1 drop 09/29/22 22:00 10/01/22 08:45 Cyclosporine 0.4 Ml Ophth Solution EACH EYE 1 drop Q12HR DAVID Administration Enoxaparin Sodium 40 mg 10/01/22 09:00 10/01/22 08:46 Enoxaparin 40 Mg/0.4 Ml Syringe SUB-Q 40 mg DAILY DAVID Administration Finasteride 5 mg 09/30/22 09:00 10/01/22 08:46 Finasteride 5 Mg Tablet PO 5 mg DAILY DAVID Administration Gabapentin 600 mg 09/29/22 22:00 10/01/22 08:44 Gabapentin 300 Mg Capsule PO 600 mg 0800,1200,2100 DAVID Administration Gabapentin 300 mg 09/30/22 17:00 09/30/22 17:26 Gabapentin 300 Mg Capsule PO 300 mg 1700 DAVID Administration Sodium Chloride 1,000 mls @ 50 mls/hr 09/30/22 18:50 09/30/22 21:30 Normal Saline Iv IV CONT 50 mls/hr .Q20H DAVID Administration Losartan Potassium 100 mg 09/30/22 09:00 10/01/22 08:45 Losartan Potassium 100 Mg Tablet PO 100 mg DAILY DAVID Administration Melatonin 3 mg 09/29/22 21:50 Melatonin 3 Mg Tablet PO QHS PRN sleep Miconazole Nitrate 1 applic 09/30/22 09:00 Antonio
--- NOTE | 2022-10-01 12:11 | P.PNNP_ITS ---
Progress Note: A&P Assessment and Plan (1) Hyponatremia: Code(s): E87.1 - Hypo-osmolality and hyponatremia Status: Acute Assessment and Plan: * acute * suspicion falls on hypovolemia secondary to GI losses * improvement noted with IVF resuscitation * goal of therapy is a rate of change of 6 - 8mmol/L in 24 hours * evaluation to date: * TSH okay * cortisol not done - will re-order * SPE/UPE and serum/urine osmo pending * urine sodium not done * follow serial sodium levels (2) C. difficile colitis: Code(s): A04.72 - Enterocolitis due to Clostridium difficile, not specified as recurrent Status: Acute Assessment and Plan: * positive by stool testing * on oral vancomycin * supportive care (3) HTN (hypertension): Code(s): I10 - Essential (primary) hypertension Status: Chronic Assessment and Plan: * reasonable control at this time * follow trend of hemodynamics Will continue to follow. Subjective Date/time seen: 10/01/22 12:11 No new issues or problems to report at this time; sodium level stabilizing/improving with current interventions to date; stools appear to be more formed in comparison to david diarrhea on presentation/admission; no other issues/events overnight or earlier this admission. Exam Narrative: General: WD/WN male in NAD Heart: normal S1 and S2; no rub Lungs: clear to auscultation Abdomen: soft, nontender, nondistended, positive bowel sounds Extremities:no evidence of cyanosis, clubbing, or edema; bilateral BKA Skin: warm and intact Objective Data Vital Signs Vital Signs: Vital Signs Temp Pulse Resp BP Pulse Ox O2 Del Method 10/01/22 10:00 Room Air 10/01/22 08:45 74 10/01/22 04:00 80 10/01/22 06:00 98.5 F 69 14 127/60 95 10/01/22 00:00 75 09/30/22 20:45 76 09/30/22 22:00 98.6 F 76 16 134/64 94 09/30/22 16:00 72 09/30/22 15:00 97.9 F 72 14 110/51 L 97 09/30/22 12:04 72 09/30/22 13:11 Room Air Intake/Output Intake/Output: Intake & Output 02/10/1909/29/22 09/30/22 10/01/22 23:59 23:59 23:59 23:59 Intake Total 2810 2130 240 Output Total 1150 825 660 Balance 1660 4740 -519 Meds/Results Medications: Active Medications Generic Name Dose Route Start Last Admin Trade Name Eddieq PRN Reason Stop Dose Admin Acyclovir 400 mg 09/30/22 09:00 10/01/22 08:46 Acyclovir 400 Mg Tablet PO 400 mg BID DAVID Administration Amlodipine Besylate 5 mg 09/30/22 09:00 10/01/22 08:44 Amlodipine Besylate 5 Mg Tablet PO 5 mg DAILY DAVID Administration Aspirin 325 mg 09/30/22 09:00 10/01/22 08:45 Aspirin 325 Mg Tablet PO 325 mg DAILY DAVID Administration Clopidogrel Bisulfate 75 mg 09/30/22 09:00 10/01/22 08:45 Clopidogrel Bisulfate 75 Mg Tablet PO 75 mg DAILY DAVID Administration Cyclosporine 1 drop 09/29/22 22:00 10/01/22 08:45 Cyclosporine 0.4 Ml Ophth Solution EACH EYE 1 drop Q12HR DAVID Administration Enoxaparin Sodium 40 mg 10/01/22 09:00 10/01/22 08:46
[2022-10-01 13:52] LABS: Iron 18 ug/dL (49-181)
[2022-10-01 14:04] LABS: Percent Iron Saturation 8 % (20-50)
--- NOTE | 2022-10-01 14:12 | PCPTNOTE ---
Patient and report he has just taken of his prosthetics and gotten back in bed. Would like to hold of therapy until tomorrow.
[2022-10-01] MEDS: GABAPENTIN 300 MG CAPSULE PO (17:36)
[2022-10-01] MEDS: PHENAZOPYRIDINE HCL 100 MG TABLET 200 MG PO (17:36)
[2022-10-01] MEDS: SODIUM CHLORIDE 0.9% IV 1,000 ML 75 ML IV CONT (17:47)
[2022-10-01 18:41] LABS: Sodium 122 mmol/L (137-145)
[2022-10-01] MEDS: FUROSEMIDE 20 MG TABLET PO (20:52)
[2022-10-01] MEDS: traMADol HCL (*CRX) 50 MG TABLET PO (20:53)
[2022-10-01] MEDS: MELATONIN 3 MG TABLET PO (20:53)
[2022-10-01 21:20] LABS: Sodium Urine Random 61 meq/L
[2022-10-02] VITALS (11 sets, daily range): BP systolic 134–146; BP diastolic 56–70; PULSE 72–80; RESP 14–20; TEMP 36.5–36.9; O2SAT 96–97
[2022-10-02] MEDS: VANCOMYCIN ORAL 125 MG/2.5 ML SYRUP PO ×5 (00:07→23:15)
[2022-10-02 05:29] LABS: Basophils Absolute Auto 0.1 K/mm3 (0.0-0.1); Basophils Percent Auto 0.7 % (0.2-1.2); Eosinophils Absolute Auto 0.3 K/mm3 (0-0.3); Eosinophils Percent Auto 2.7 % (0-4.4); Hematocrit 33.1 % (42.0-52.0); Hemoglobin 11.1 g/dL (14.0-18.0); Immature Granulocyte Absolute 0.06 K/mm3 (0.00-0.031); Immature Granulocyte Percent A 0.6 % (0-0.5); Lymphocytes Absolute Auto 0.91 K/mm3 (0.9-3.2); Mean Corpuscular HGB Conc 33.5 g/dl (32-36); Mean Corpuscular Hemoglobin 29.7 pg (26-34); Mean Corpuscular Volume 88.5 fl (80-100); Mean Platelet Volume 8.7 fl (7.4-10.4); Monocytes Absolute Auto 1.4 K/mm3 (0.1-0.6); Monocytes Percent Auto 14.2 % (2.6-8.5); Neutrophils Absolute Auto 7.4 K/mm3 (1.3-6.7); Neutrophils Percent Auto 72.8 % (45.5-73.1); Platelet Count Result 278 k/mm3 (150-375); Red Blood Count 3.74 M/mm3 (4.6-6.20); Red Cell Distribution Width 13.5 % (11.5-14.5); White Blood Count 10.1 K/mm3 (4.5-10.0)
[2022-10-02 05:41] LABS: Alanine Aminotransferase 30 U/L (6-50); Albumin Level 3.1 g/dL (3.5-5.1); Alkaline Phosphatase 48 U/L (38-126); Anion Gap 3 mmol/L (8-16); Aspartate Amino Transferase 34 U/L (17-59); Bilirubin,Total 0.5 mg/dL (0.2-1.3); Blood Urea Nitrogen 7 mg/dL (9-20); Carbon Dioxide 27 mmol/L (22-30); Chloride 92 mmol/L (98-107); Estimated Glomerular Filt Rate > 60; Glucose 93 mg/dL (65-110); Phosphorus 2.7 mg/dL (2.5-4.5); Potassium 3.5 mmol/L (3.4-5.0); Sodium 122 mmol/L (137-145)
[2022-10-02] MEDS: SODIUM CHLORIDE 0.9% IV 1,000 ML 75 ML IV CONT (05:51)
--- NOTE | 2022-10-02 08:55 | PCPTNOTE ---
Attempted PT evaluation, Pt shook his head no and stated give me a little time. Pt requesting therapist return this afternoon. RN aware. Will Follow
[2022-10-02] MEDS: PHENAZOPYRIDINE HCL 100 MG TABLET 200 MG PO ×3 (09:39→17:03)
[2022-10-02] MEDS: NEBIVOLOL HCL 5 MG TABLET 10 MG PO (09:40)
[2022-10-02] MEDS: MIRABEGRON 50 MG ER TABLET PO (09:40)
[2022-10-02] MEDS: GABAPENTIN 300 MG CAPSULE 600 MG PO ×3 (09:43→20:07)
[2022-10-02] MEDS: TAMSULOSIN HCL 0.4 MG CAPSULE PO (09:43)
[2022-10-02] MEDS: VITAMIN B COMPLEX CAPSULE 1 CAP PO (09:44)
[2022-10-02] MEDS: ACYCLOVIR 400 MG TABLET PO ×2 (09:44→17:03)
[2022-10-02] MEDS: ASPIRIN 325 MG TABLET PO (09:44)
[2022-10-02] MEDS: OPTI-GEN TAB 1 TABLET PO (09:44)
[2022-10-02] MEDS: LOSARTAN POTASSIUM 100 MG TABLET PO (09:44)
[2022-10-02] MEDS: FINASTERIDE 5 MG TABLET PO (09:44)
[2022-10-02] MEDS: CLOPIDOGREL BISULFATE 75 MG TABLET PO (09:44)
[2022-10-02] MEDS: amLODIPine BESYLATE 5 MG TABLET PO (09:44)
[2022-10-02] MEDS: cycloSPORINE 0.4 ML OPHTH SOLUTION 1 DROP EACH EYE ×2 (09:45→20:07)
[2022-10-02] MEDS: SIMVASTATIN 10 MG TABLET PO (09:45)
[2022-10-02] MEDS: ENOXAPARIN 40 MG/0.4 ML SYRINGE SUB-Q (09:45)
--- NOTE | 2022-10-02 12:09 | PM.PNNEP ---
Progress Note: A&P Assessment and Plan (1) Hyponatremia: Code(s): E87.1 - Hypo-osmolality and hyponatremia Status: Acute Assessment and Plan: acute suspicion falls on hypovolemia secondary to GI losses initial improvement noted with IVF resuscitation but then trended down in the last 24 hours goal of therapy is a rate of change of 6 - 8mmol/L in 24 hours evaluation to date: TSH okay cortisol okay SPE/UPE and serum/urine osmo pending urine sodium not done will stop IVFs and start salt tabs follow serial sodium levels (2) C. difficile colitis: Code(s): A04.72 - Enterocolitis due to Clostridium difficile, not specified as recurrent Status: Acute Assessment and Plan: positive by stool testing on oral vancomycin supportive care (3) HTN (hypertension): Code(s): I10 - Essential (primary) hypertension Status: Chronic Assessment and Plan: reasonable control at this time follow trend of hemodynamics Will continue to follow. Subjective Date/time seen: 10/02/22 12:09 Despite normal saline IVFs, sodium is a bit worse now; however, he does not appear symptomatic from this; stools appear more formed at this time; no other acute issues overnight or earlier this AM. Exam Narrative: General: WD/WN male in NAD Heart: normal S1 and S2; no rub Lungs: clear to auscultation Abdomen: soft, nontender, nondistended, positive bowel sounds Extremities:no evidence of cyanosis, clubbing, or edema; bilateral BKA Skin: warm and intact Objective Data Vital Signs Vital Signs: Vital Signs Temp Pulse Resp BP Pulse Ox O2 Del Method 10/02/22 08:00 Room Air 10/02/22 09:47 75 14 146/70 H 97 10/02/22 09:40 78 10/02/22 08:00 75 10/02/22 04:00 80 10/02/22 04:01 98.4 F 79 20 142/56 H 96 10/02/22 00:00 74 10/01/22 20:00 Room Air 10/01/22 20:00 82 10/01/22 21:02 99.7 F H 76 20 117/48 L 99 10/01/22 16:00 98.3 F 72 24 H 140/65 96 10/01/22 16:00 75 Intake/Output Intake/Output: Intake & Output 09/29/22 09/30/22 10/01/22 10/02/22 23:59 23:59 23:59 23:59 Intake Total 2810 2130 1720 1430 Output Total 1150 710 760 200 Balance 1660 6474 826 6949 Meds/Results Medications: Active Medications Generic Name Dose Route Start Last Admin Trade Name Freq PRN Reason Stop Dose Admin Acyclovir 400 mg 09/30/22 09:00 10/02/22 09:44 Acyclovir 400 Mg Tablet PO 400 mg BID DAVID Administration Amlodipine Besylate 5 mg 09/30/22 09:00 10/02/22 09:44 Amlodipine Besylate 5 Mg Tablet PO 5 mg DAILY DAVID Administration Aspirin 325 mg 09/30/22 09:00 10/02/22 09:44 Aspirin 325 Mg Tablet PO 325 mg DAILY DVAID Administration Clopidogrel Bisulfate 75 mg 09/30/22 09:00 10/02/22 09:44 Clopidogrel Bisulfate 75 Mg Tablet PO 75 mg DAILY DAVID Administration Cyclosporine 1 drop 09/29/22 22:00 10/02/22 09:45 Cyclosporine 0.4 Ml Ophth Solution EACH EYE 1 drop Q12HR DAVID Administration Enoxaparin Sodium 40 mg 10/01/22 09:00 10/02/22 09:45 Enoxaparin 40 Mg/0.4 Ml Syringe SUB-Q 40 mg DAILY DAVID Administration Finasteride 5 mg 09/30/22 09:00 10/02/22 09:44 Finasteride 5 Mg Tablet PO 5 mg DAILY DAVID Administration Gabapentin 600 mg 09/29/22 22:00 10/02/22 09:43 Gabapentin 300 Mg Capsule PO 600 mg 0800,1200,2100 DAVID Administration Gabapentin 300 mg 09/30/22 17:00 10/01/22 17:36 Gabapentin 300 Mg Capsule PO 300 mg 1700 DAVID Administration Losartan Potassium 100 mg 09/30/22 09:00 10/02/22 09:44 Losartan Potassium 100 Mg Tablet PO 100 mg DAILY DAVID Administration Melatonin 3 mg 09/29/22 21:50 10/01/22 20:53 Melatonin 3 Mg Tablet PO 3 mg QHS PRN Administration sleep Miconazole Nitrate 1 applic 09/30/22 09:00 Miconazole Nitrate 2% Cream 30 Gm Tube TOPICAL BID PRN
[2022-10-02] MEDS: SODIUM CHLORIDE 500 MG TABLET PO ×2 (12:34→17:45)
--- NOTE | 2022-10-02 15:23 | PM.IMPN ---
Progress Note: A&P Assessment and Plan (1) C. difficile colitis: Code(s): A04.72 - Enterocolitis due to Clostridium difficile, not specified as recurrent Status: Acute Assessment and Plan: Continue p.o. vancomycin. Monitor stool output. Avoid (2) Acute hyponatremia: Code(s): E87.1 - Hypo-osmolality and hyponatremia Status: Acute Assessment and Plan: fluids stopped nephrology rounding, sodium is 122 today.. Will check serial electrolyte panels. (3) Acute dehydration: Code(s): E86.0 - Dehydration Status: Acute Assessment and Plan: The patient responded well to the initial 2 L fluid bolus and heart rate has improved. Urine output has been adequate. Monitor I&O's closely. ER had placed a Castro catheter although the patient was not having symptoms of retention and has chronic nocturia. Will discontinue Castro catheter at this time. If the patient needs we may use a pure wick system to obtain strict I&O's if patient is having difficulty with urinary incontinence. (4) BPH (benign prostatic hyperplasia): Code(s): N40.0 - Benign prostatic hyperplasia without lower urinary tract symptoms Status: Acute Assessment and Plan: Given the patient's history of BPH when we take the patient's catheter on he may have recurrent urinary retention. I will continue patient's home Proscar and Flomax Subjective Date/time seen: 10/02/22 15:23 77-year-old male with past medical history of bilateral lower extremity BKA, hypertension, hyperlipidemia, peripheral artery disease and phantom pain syndrome who presented to the ER with diarrhea. Pt does not feel well. Having loose stools. Review of Systems Review of Systems: watery stools All systems reviewed & are unremarkable except as noted in HPI and below Exam Narrative: Alert and oriented in no acute distress RS: clear to ausculation GI no tender, non distended, no palpable mass and BS present CVS S1 and S2, present, RRR no murmurs EXtremities bilateral LE amputation NEuro: alert and oriented and non focal SKin: No rash or ulcer noted. Objective Data Vital Signs Vital Signs: Vital Signs - 24 hr 10/01/22 16:00 10/01/22 16:00 10/01/22 21:02 Temperature 36.8 C 37.6 C H Pulse Rate 75 72 76 Respiratory Rate 24 H 20 Blood Pressure 140/65 117/48 L Pulse Oximetry 96 99 Oxygen Delivery 10/01/22 20:00 10/01/22 20:00 10/02/22 00:00 Temperature Pulse Rate 82 74 Respiratory Rate Blood Pressure Pulse Oximetry Oxygen Delivery Room Air 10/02/22 04:01 10/02/22 04:00 10/02/22 08:00 Temperature 36.9 C Pulse Rate 79 80 75 Respiratory Rate 20 Blood Pressure 142/56 H Pulse Oximetry 96 Oxygen Delivery 10/02/22 09:40 10/02/22 09:47 10/02/22 08:00 Temperature Pulse Rate 78 75 Respiratory Rate 14 Blood Pressure 146/70 H Pulse Oximetry 97 Oxygen Delivery Room Air 10/02/22 14:00 Temperature 36.5 C Pulse Rate 74 Respiratory Rate 15 Blood Pressure 138/64 Pulse Oximetry 97 Oxygen Delivery Intake/Output Intake/Output: Intake & Output 09/29/22 09/30/22 10/01/22 10/02/22 23:59 23:59 23:59 23:59 Intake Total 2810 2130 1720 1670 Output Total 1150 710 760 200 Balance 1660 8805 937 3267 Meds/Results Medications: Active Medications Generic Name Dose Route Start Last Admin Trade Name Freq PRN Reason Stop Dose Admin Acyclovir 400 mg 09/30/22 09:00 10/02/22 09:44 Acyclovir 400 Mg Tablet PO 400 mg BID DAVID Administration Amlodipine Besylate 5 mg 09/30/22 09:00 10/02/22 09:44 Amlodipine Besylate 5 Mg Tablet PO 5 mg DAILY DAVID Administration Aspirin 325 mg 09/30/22 09:00 10/02/22 09:44 Aspirin 325 Mg Tablet PO 325 mg DAILY DAVID Administration Clopidogrel Bisulfate 75 mg 09/30/22 09:00 10/02/22 09:44 Clopidogrel Bisulfate 75 Mg Tablet PO 75 mg DAILY DAVID Administration Cyclosporine 1
[2022-10-02] MEDS: GABAPENTIN 300 MG CAPSULE PO (17:03)
[2022-10-02] MEDS: MELATONIN 3 MG TABLET PO (23:16)
[2022-10-02] MEDS: traMADol HCL (*CRX) 50 MG TABLET PO (23:16)
[2022-10-03] VITALS (11 sets, daily range): BP systolic 111–150; BP diastolic 48–80; PULSE 65–88; RESP 17–22; TEMP 36.3–36.8; O2SAT 95–98
[2022-10-03] MEDS: VANCOMYCIN ORAL 125 MG/2.5 ML SYRUP PO ×3 (05:05→17:57)
[2022-10-03 06:04] LABS: Hematocrit 34.5 % (42.0-52.0); Hemoglobin 11.5 g/dL (14.0-18.0); Mean Corpuscular HGB Conc 33.3 g/dl (32-36); Mean Corpuscular Hemoglobin 29.9 pg (26-34); Mean Corpuscular Volume 89.8 fl (80-100); Mean Platelet Volume 8.6 fl (7.4-10.4); Platelet Count Result 309 k/mm3 (150-375); Red Blood Count 3.84 M/mm3 (4.6-6.20); Red Cell Distribution Width 13.3 % (11.5-14.5); White Blood Count 7.3 K/mm3 (4.5-10.0)
[2022-10-03 06:23] LABS: Albumin Level 3.1 g/dL (3.5-5.1); Anion Gap 6 mmol/L (8-16); Blood Urea Nitrogen 6 mg/dL (9-20); Calcium 7.1 mg/dL (8.4-10.2); Carbon Dioxide 26 mmol/L (22-30); Chloride 92 mmol/L (98-107); Estimated Glomerular Filt Rate > 60; Glucose 91 mg/dL (65-110); Phosphorus 2.7 mg/dL (2.5-4.5); Potassium 3.4 mmol/L (3.4-5.0); Sodium 124 mmol/L (137-145)
[2022-10-03] MEDS: GABAPENTIN 300 MG CAPSULE 600 MG PO ×3 (09:51→20:09)
[2022-10-03] MEDS: ACYCLOVIR 400 MG TABLET PO ×2 (09:52→17:55)
[2022-10-03] MEDS: PHENAZOPYRIDINE HCL 100 MG TABLET 200 MG PO ×3 (09:52→17:56)
[2022-10-03] MEDS: amLODIPine BESYLATE 5 MG TABLET PO (09:53)
[2022-10-03] MEDS: CLOPIDOGREL BISULFATE 75 MG TABLET PO (09:53)
[2022-10-03] MEDS: ASPIRIN 325 MG TABLET PO (09:53)
[2022-10-03] MEDS: cycloSPORINE 0.4 ML OPHTH SOLUTION 1 DROP EACH EYE ×2 (09:54→20:09)
[2022-10-03] MEDS: ENOXAPARIN 40 MG/0.4 ML SYRINGE SUB-Q (09:54)
[2022-10-03] MEDS: FINASTERIDE 5 MG TABLET PO (09:54)
[2022-10-03] MEDS: LOSARTAN POTASSIUM 100 MG TABLET PO (09:54)
[2022-10-03] MEDS: MIRABEGRON 50 MG ER TABLET PO (09:55)
[2022-10-03] MEDS: NEBIVOLOL HCL 5 MG TABLET 10 MG PO (09:55)
[2022-10-03] MEDS: OPTI-GEN TAB 1 TABLET PO (09:56)
[2022-10-03] MEDS: SIMVASTATIN 10 MG TABLET PO (09:56)
[2022-10-03] MEDS: SODIUM CHLORIDE 1 GM TABLET PO ×2 (09:56→17:57)
[2022-10-03] MEDS: VITAMIN B COMPLEX CAPSULE 1 CAP PO (09:57)
[2022-10-03] MEDS: TAMSULOSIN HCL 0.4 MG CAPSULE PO (09:57)
--- NOTE | 2022-10-03 11:12 | P.PNNP_ITS ---
Progress Note: A&P Assessment and Plan (1) Hyponatremia: Code(s): E87.1 - Hypo-osmolality and hyponatremia Status: Acute Assessment and Plan: * acute * suspicion falls on hypovolemia secondary to GI losses * initial improvement noted with IVF resuscitation but then trended down again * goal of therapy is a rate of change of 6 - 8mmol/L in 24 hours * evaluation to date: * TSH okay * cortisol okay * SPE/UPE and serum/urine osmo pending * urine sodium not done * off IVFs and started on salt tabs * follow serial sodium levels (2) C. difficile colitis: Code(s): A04.72 - Enterocolitis due to Clostridium difficile, not specified as recurrent Status: Acute Assessment and Plan: * positive by stool testing * on oral vancomycin * supportive care (3) HTN (hypertension): Code(s): I10 - Essential (primary) hypertension Status: Chronic Assessment and Plan: * reasonable control at this time * follow trend of hemodynamics Will continue to follow. Subjective Date/time seen: 10/03/22 11:12 Still having some loose stool but overall better in comparison to admission; sodium a bit better today and salt tablets initiated yesterday; no apparent distress voiced; no acute issues/events overnight or earlier this morning. Exam Narrative: General: WD/WN male in NAD Heart: normal S1 and S2; no rub Lungs: clear to auscultation Abdomen: soft, nontender, nondistended, positive bowel sounds Extremities:no evidence of cyanosis, clubbing, or edema; bilateral BKA Skin: no rash Objective Data Vital Signs Vital Signs: Vital Signs Temp Pulse Resp BP Pulse Ox 10/03/22 09:55 73 10/03/22 09:50 73 150/56 H 10/03/22 05:18 97.8 F 71 17 147/80 H 98 10/03/22 04:00 88 10/03/22 00:00 75 10/02/22 20:00 78 10/02/22 21:31 98.3 F 76 18 134/61 97 10/02/22 16:00 72 10/02/22 12:00 72 10/02/22 14:00 97.7 F 74 15 138/64 97 Intake/Output Intake/Output: Intake & Output 09/30/22 10/01/22 10/02/2210/03/23 23:59 23:59 23:59 23:59 Intake Total 2130 1720 2510 300 Output Total 710 760 750 Balance 4616 887 5792 300 Meds/Results Medications: Active Medications Generic Name Dose Route Start Last Admin Trade Name Vignesh PRN Reason Stop Dose Admin Acyclovir 400 mg 09/30/22 09:00 10/03/22 09:52 Acyclovir 400 Mg Tablet PO 400 mg BID DAVID Administration Amlodipine Besylate 5 mg 09/30/22 09:00 10/03/22 09:53 Amlodipine Besylate 5 Mg Tablet PO 5 mg DAILY DAVID Administration Aspirin 325 mg 09/30/22 09:00 10/03/22 09:53 Aspirin 325 Mg Tablet PO 325 mg DAILY DAVID Administration Clopidogrel Bisulfate 75 mg 09/30/22 09:00 10/03/22 09:53 Clopidogrel Bisulfate 75 Mg Tablet PO 75 mg DAILY DAVID Administration Cyclosporine 1 drop 09/29/22 22:00 10/03/22 09:54 Cyclosporine 0.4 Ml Ophth Solution EACH EYE 1 drop Q12HR DAVID Administration Enoxaparin Sodium 40 mg 10/01/22 09:00 10/03/22 09:54 Enoxaparin 40 Mg/0.4 Ml Syringe SUB-Q 40 mg
--- NOTE | 2022-10-03 11:12 | PM.PNNEP ---
Progress Note: A&P Assessment and Plan (1) Hyponatremia: Code(s): E87.1 - Hypo-osmolality and hyponatremia Status: Acute Assessment and Plan: acute suspicion falls on hypovolemia secondary to GI losses initial improvement noted with IVF resuscitation but then trended down again goal of therapy is a rate of change of 6 - 8mmol/L in 24 hours evaluation to date: TSH okay cortisol okay SPE/UPE and serum/urine osmo pending urine sodium not done off IVFs and started on salt tabs follow serial sodium levels (2) C. difficile colitis: Code(s): A04.72 - Enterocolitis due to Clostridium difficile, not specified as recurrent Status: Acute Assessment and Plan: positive by stool testing on oral vancomycin supportive care (3) HTN (hypertension): Code(s): I10 - Essential (primary) hypertension Status: Chronic Assessment and Plan: reasonable control at this time follow trend of hemodynamics Will continue to follow. Subjective Date/time seen: 10/03/22 11:12 Still having some loose stool but overall better in comparison to admission; sodium a bit better today and salt tablets initiated yesterday; no apparent distress voiced; no acute issues/events overnight or earlier this morning. Exam Narrative: General: WD/WN male in NAD Heart: normal S1 and S2; no rub Lungs: clear to auscultation Abdomen: soft, nontender, nondistended, positive bowel sounds Extremities:no evidence of cyanosis, clubbing, or edema; bilateral BKA Skin: no rash Objective Data Vital Signs Vital Signs: Vital Signs Temp Pulse Resp BP Pulse Ox 10/03/22 09:55 73 10/03/22 09:50 73 150/56 H 10/03/22 05:18 97.8 F 71 17 147/80 H 98 10/03/22 04:00 88 10/03/22 00:00 75 10/02/22 20:00 78 10/02/22 21:31 98.3 F 76 18 134/61 97 10/02/22 16:00 72 10/02/22 12:00 72 10/02/22 14:00 97.7 F 74 15 138/64 97 Intake/Output Intake/Output: Intake & Output 09/30/22 10/01/22 10/02/22 10/03/22 23:59 23:59 23:59 23:59 Intake Total 2130 1720 2510 300 Output Total 710 760 750 Balance 5355 031 3214 300 Meds/Results Medications: Active Medications Generic Name Dose Route Start Last Admin Trade Name Vignesh PRN Reason Stop Dose Admin Acyclovir 400 mg 09/30/22 09:00 10/03/22 09:52 Acyclovir 400 Mg Tablet PO 400 mg BID DAVID Administration Amlodipine Besylate 5 mg 09/30/22 09:00 10/03/22 09:53 Amlodipine Besylate 5 Mg Tablet PO 5 mg DAILY DAVID Administration Aspirin 325 mg 09/30/22 09:00 10/03/22 09:53 Aspirin 325 Mg Tablet PO 325 mg DAILY DAVID Administration Clopidogrel Bisulfate 75 mg 09/30/22 09:00 10/03/22 09:53 Clopidogrel Bisulfate 75 Mg Tablet PO 75 mg DAILY DAVID Administration Cyclosporine 1 drop 09/29/22 22:00 10/03/22 09:54 Cyclosporine 0.4 Ml Ophth Solution EACH EYE 1 drop Q12HR DAVID Administration Enoxaparin Sodium 40 mg 10/01/22 09:00 10/03/22 09:54 Enoxaparin 40 Mg/0.4 Ml Syringe SUB-Q 40 mg DAILY DAVID Administration Finasteride 5 mg 09/30/22 09:00 10/03/22 09:54 Finasteride 5 Mg Tablet PO 5 mg DAILY DAVID Administration Gabapentin 600 mg 09/29/22 22:00 10/03/22 09:51 Gabapentin 300 Mg Capsule PO 600 mg 0800,1200,2100 DAVID Administration Gabapentin 300 mg 09/30/22 17:00 10/02/22 17:03 Gabapentin 300 Mg Capsule PO 300 mg 1700 DAVID Administration Losartan Potassium 100 mg 09/30/22 09:00 10/03/22 09:54 Losartan Potassium 100 Mg Tablet PO 100 mg DAILY DAVID Administration Melatonin 3 mg 09/29/22 21:50 10/02/22 23:16 Melatonin 3 Mg Tablet PO 3 mg QHS PRN Administration sleep Miconazole Nitrate 1 applic 09/30/22 09:00 Miconazole Nitrate 2% Cream 30 Gm Tube TOPICAL BID PRN Rash Mirabegron 50 mg 09/30/22 09:00 10/03/22 09:55 Mirabegron 50 Mg Er Tablet PO 5
--- NOTE | 2022-10-03 13:10 | PM.IMPN ---
Progress Note: A&P Assessment and Plan (1) C. difficile colitis: Code(s): A04.72 - Enterocolitis due to Clostridium difficile, not specified as recurrent Status: Acute Assessment and Plan: Continue p.o. vancomycin. Monitor stool output. Avoid laxatives (2) Acute hyponatremia: Code(s): E87.1 - Hypo-osmolality and hyponatremia Status: Acute Assessment and Plan: fluids stopped nephrology rounding, sodium is 122 today.. Will check serial electrolyte panels. pt is on salt tablets watch sodium levels possible dc in 1-2 days time home (3) Acute dehydration: Code(s): E86.0 - Dehydration Status: Acute Assessment and Plan: The patient responded well to the initial 2 L fluid bolus and heart rate has improved. resolved with fluids creat is normal now (4) BPH (benign prostatic hyperplasia): Code(s): N40.0 - Benign prostatic hyperplasia without lower urinary tract symptoms Status: Acute Assessment and Plan: Given the patient's history of BPH when we take the patient's catheter on he may have recurrent urinary retention. Continue patient's home Proscar and Flomax Subjective Date/time seen: 10/03/22 13:10 77-year-old male with past medical history of bilateral lower extremity BKA, hypertension, hyperlipidemia, peripheral artery disease and phantom pain syndrome who presented to the ER with diarrhea. Pt having 1-2 loose stools today much better than yesterday continue to watch possible DC in 1-2 days time Review of Systems Review of Systems: Watery stool All systems reviewed & are unremarkable except as noted in HPI and below Exam Narrative: Alert and oriented in no acute distress RS: clear to ausculation GI no tender, non distended, no palpable mass and BS present CVS S1 and S2, present, RRR no murmurs EXtremities bilateral LE amputation NEuro: alert and oriented and non focal SKin: No rash or ulcer noted. Objective Data Vital Signs Vital Signs: Vital Signs - 24 hr 10/02/22 14:00 10/02/22 16:00 10/02/22 21:31 Temperature 36.5 C 36.8 C Pulse Rate 74 72 76 Respiratory Rate 15 18 Blood Pressure 138/64 134/61 Pulse Oximetry 97 97 Oxygen Delivery 10/02/22 20:00 10/03/22 00:00 10/03/22 04:00 Temperature Pulse Rate 78 75 88 Respiratory Rate Blood Pressure Pulse Oximetry Oxygen Delivery 10/03/22 05:18 10/03/22 09:50 10/03/22 09:55 Temperature 36.6 C Pulse Rate 71 73 73 Respiratory Rate 17 Blood Pressure 147/80 H 150/56 H Pulse Oximetry 98 Oxygen Delivery 10/03/22 11:19 10/03/22 08:00 10/03/22 12:00 Temperature Pulse Rate 72 75 Respiratory Rate Blood Pressure Pulse Oximetry Oxygen Delivery Room Air Intake/Output Intake/Output: Intake & Output 09/30/22 10/01/22 10/02/22 10/03/22 23:59 23:59 23:59 23:59 Intake Total 2130 1720 2510 540 Output Total 710 760 750 Balance 4903 773 2760 540 Meds/Results Medications: Active Medications Generic Name Dose Route Start Last Admin Trade Name Freq PRN Reason Stop Dose Admin Acyclovir 400 mg 09/30/22 09:00 10/03/22 09:52 Acyclovir 400 Mg Tablet PO 400 mg BID DAVID Administration Amlodipine Besylate 5 mg 09/30/22 09:00 10/03/22 09:53 Amlodipine Besylate 5 Mg Tablet PO 5 mg DAILY DAVID Administration Aspirin 325 mg 09/30/22 09:00 10/03/22 09:53 Aspirin 325 Mg Tablet PO 325 mg DAILY DAVID Administration Clopidogrel Bisulfate 75 mg 09/30/22 09:00 10/03/22 09:53 Clopidogrel Bisulfate 75 Mg Tablet PO 75 mg DAILY DAVID Administration Cyclosporine 1 drop 09/29/22 22:00 10/03/22 09:54 Cyclosporine 0.4 Ml Ophth Solution EACH EYE 1 drop Q12HR DAVID Administration Enoxaparin Sodium 40 mg 10/01/22 09:00 10/03/22 09:54 Enoxaparin 40 Mg/0.4 Ml Syringe SUB-Q 40 mg DAILY DAVID Administration Finasteride 5 mg 09/30/22 09:00 10/03/22 09:54 Finasterid
[2022-10-03] MEDS: GABAPENTIN 300 MG CAPSULE PO (17:56)
[2022-10-03 18:02] LABS: Albumin 2.8 g/dL (3.8-4.8); Alpha 1 Globulin 0.5 g/dL (0.2-0.3); Alpha 2 Globulin 0.8 g/dL (0.5-0.9); Beta 1 Globulin 0.3 g/dL (0.4-0.6); Gamma Globulin 0.9 g/dL (0.8-1.7); Protein, Total 5.6 g/dL (6.1-8.1)
[2022-10-03 19:35] LABS: Osmolality, Urine 646 mOsm/kg (50-1200)
[2022-10-04] VITALS (11 sets, daily range): BP systolic 126–151; BP diastolic 46–55; PULSE 64–77; RESP 18–20; TEMP 36.5–36.7; O2SAT 93–94
[2022-10-04] MEDS: VANCOMYCIN ORAL 125 MG/2.5 ML SYRUP PO ×4 (03:23→18:06)
[2022-10-04 05:16] LABS: Albumin Level 2.7 g/dL (3.5-5.1); Anion Gap 3 mmol/L (8-16); Blood Urea Nitrogen 7 mg/dL (9-20); Calcium 7.3 mg/dL (8.4-10.2); Carbon Dioxide 30 mmol/L (22-30); Chloride 98 mmol/L (98-107); Estimated Glomerular Filt Rate > 60; Glucose 94 mg/dL (65-110); Phosphorus 3.1 mg/dL (2.5-4.5); Potassium 3.6 mmol/L (3.4-5.0); Sodium 131 mmol/L (137-145)
[2022-10-04] MEDS: GABAPENTIN 300 MG CAPSULE 600 MG PO ×3 (09:15→21:48)
[2022-10-04] MEDS: PHENAZOPYRIDINE HCL 100 MG TABLET 200 MG PO ×2 (09:15→12:36)
[2022-10-04] MEDS: CLOPIDOGREL BISULFATE 75 MG TABLET PO (09:16)
[2022-10-04] MEDS: amLODIPine BESYLATE 5 MG TABLET PO (09:16)
[2022-10-04] MEDS: ACYCLOVIR 400 MG TABLET PO ×2 (09:16→18:05)
[2022-10-04] MEDS: ASPIRIN 325 MG TABLET PO (09:16)
[2022-10-04] MEDS: MIRABEGRON 50 MG ER TABLET PO (09:17)
[2022-10-04] MEDS: FINASTERIDE 5 MG TABLET PO (09:17)
[2022-10-04] MEDS: LOSARTAN POTASSIUM 100 MG TABLET PO (09:17)
[2022-10-04] MEDS: NEBIVOLOL HCL 5 MG TABLET 10 MG PO (09:17)
[2022-10-04] MEDS: OPTI-GEN TAB 1 TABLET PO (09:18)
[2022-10-04] MEDS: SIMVASTATIN 10 MG TABLET PO (09:18)
[2022-10-04] MEDS: VITAMIN B COMPLEX CAPSULE 1 CAP PO (09:19)
[2022-10-04] MEDS: TAMSULOSIN HCL 0.4 MG CAPSULE PO (09:19)
[2022-10-04] MEDS: SODIUM CHLORIDE 1 GM TABLET PO ×2 (09:19→18:06)
[2022-10-04] MEDS: cycloSPORINE 0.4 ML OPHTH SOLUTION 1 DROP EACH EYE ×2 (09:47→21:49)
--- NOTE | 2022-10-04 11:41 | PM.IMPN ---
Progress Note: A&P Assessment and Plan (1) C. difficile colitis: Code(s): A04.72 - Enterocolitis due to Clostridium difficile, not specified as recurrent Status: Acute Assessment and Plan: Continue p.o. vancomycin. Monitor stool output. Avoid laxatives (2) Acute hyponatremia: Code(s): E87.1 - Hypo-osmolality and hyponatremia Status: Acute Assessment and Plan: fluids stopped nephrology rounding, sodium is 122 today.. Will check serial electrolyte panels. pt is on salt tablets watch sodium levels possible dc in 1-2 days time home (3) Acute dehydration: Code(s): E86.0 - Dehydration Status: Acute Assessment and Plan: The patient responded well to the initial 2 L fluid bolus and heart rate has improved. resolved with fluids creat is normal now (4) BPH (benign prostatic hyperplasia): Code(s): N40.0 - Benign prostatic hyperplasia without lower urinary tract symptoms Status: Acute Assessment and Plan: Given the patient's history of BPH when we take the patient's catheter on he may have recurrent urinary retention. Continue patient's home Proscar and Flomax Subjective Date/time seen: 10/04/22 11:41 Exam Narrative: Alert and oriented in no acute distress RS: clear to ausculation GI no tender, non distended, no palpable mass and BS present CVS S1 and S2, present, RRR no murmurs EXtremities bilateral LE amputation NEuro: alert and oriented and non focal SKin: No rash or ulcer noted. Const: Other: No acute distress, morbidly obese, lying flat in bed with snoring respirations HENMT: Other: Mucous membranes are tacky, no oral pharyngeal erythema, crowded posterior oropharynx positive conjunctival pallor, head is normocephalic atraumatic Eyes: Other: Pupils are equal and reactive, positive conjunctival pallor, no scleral icterus, developing cataract Neck: Other: Large neck circumference, no JVD Resp: Other: Clear to auscultation bilaterally, no increased work of breathing Cardio: Other: Irregularly irregular, rate controlled, 2+ bilateral radial pulses GI: Other: Obese, nontender, normoactive bowel sounds, no organomegaly : Other: Castro catheter in place with dark yellow urine, blood at the ureteral meatus. Skin: Other: No erythema of the bilateral lower extremity stumps, no jaundice, no pallor Neuro: Other: Alert oriented x4, speech is clear, no facial asymmetry, no localizing neurologic deficits noted during the course of casual conversation Extrem: Other: Bilateral lower extremity stumps intact, evidence of prior right knee replacement Psych: Other: Flat affect, cooperative, irritable Objective Data Vital Signs Vital Signs: Vital Signs - 24 hr 10/03/22 12:00 10/03/22 15:28 10/03/22 16:00 Temperature 98.2 F Pulse Rate 75 65 65 Respiratory Rate 18 Blood Pressure 111/54 L Pulse Oximetry 95 Oxygen Delivery 10/03/22 20:46 10/03/22 20:00 10/03/22 20:00 Temperature 97.3 F L Pulse Rate 69 67 69 Respiratory Rate 22 H 22 H Blood Pressure 146/48 H Pulse Oximetry 95 95 Oxygen Delivery Room Air 10/04/22 00:00 10/04/22 03:59 10/04/22 04:00 Temperature 98.0 F Pulse Rate 64 70 73 Respiratory Rate 20 Blood Pressure 146/55 H Pulse Oximetry 94 Oxygen Delivery 10/04/22 09:12 10/04/22 09:17 10/04/22 08:00 Temperature Pulse Rate 77 77 68 Respiratory Rate Blood Pressure 151/46 H Pulse Oximetry Oxygen Delivery Intake/Output Intake/Output: Intake & Output 10/01/22 10/02/22 10/03/22 10/04/22 23:59 23:59 23:59 23:59 Intake Total 1720 2510 1750 870 Output Total 394 515 7908 1100 Balance 960 1760 400 -230 Meds/Results Medications: Active Medications Generic Name Dose Route Start Last Admin Trade Name Freq PRN Reason Stop Dose Admin Acyclovir 400 mg 09/30/22 09:00 10/04/22 09:16 Acyclovir 400 Mg Tablet PO 400
[2022-10-04 12:19] LABS: Kappa\\Lambda Light Chains 2.99 (0.26-1.65); Lambda Light Chain 15.3 mg/L (5.7-26.3)
[2022-10-04] MEDS: ENOXAPARIN 40 MG/0.4 ML SYRINGE SUB-Q (12:35)
--- NOTE | 2022-10-04 12:40 | P.PNNP_ITS ---
Progress Note: A&P Assessment and Plan (1) Hyponatremia: Code(s): E87.1 - Hypo-osmolality and hyponatremia Status: Acute Assessment and Plan: * acute * suspicion falls on hypovolemia secondary to GI losses * initial improvement noted with IVF resuscitation but then trended down again * goal of therapy is a rate of change of 6 - 8mmol/L in 24 hours * evaluation to date: * TSH okay * cortisol okay * SPE/UPE and serum/urine osmo pending * urine sodium not done * off IVFs and started on salt tabs * will attempt to wean off salt tabs * follow serial sodium levels (2) C. difficile colitis: Code(s): A04.72 - Enterocolitis due to Clostridium difficile, not specified as recurrent Status: Acute Assessment and Plan: * positive by stool testing * on oral vancomycin * supportive care (3) HTN (hypertension): Code(s): I10 - Essential (primary) hypertension Status: Chronic Assessment and Plan: * reasonable control at this time * follow trend of hemodynamics Will continue to follow. Subjective Date/time seen: 10/04/22 12:40 Still having some loose stools but this has improved with current interventions; sodium doing better with addition of salt tablets; no apparent distress noted; no other acute events overnight or earlier this AM. Exam Narrative: General: WD/WN male in NAD Heart: normal S1 and S2; no rub Lungs: clear to auscultation Abdomen: soft, nontender, nondistended, positive bowel sounds Extremities:no evidence of cyanosis, clubbing, or edema; bilateral BKA Skin: no nodules Objective Data Vital Signs Vital Signs: Vital Signs Temp Pulse Resp BP Pulse Ox O2 Del Method 10/04/22 12:00 72 10/04/22 08:00 68 10/04/22 09:17 77 10/04/22 09:12 77 151/46 H 10/04/22 04:00 73 10/04/22 03:59 98.0 F 70 20 146/55 H 94 10/04/22 00:00 64 10/03/22 20:00 69 22 H 95 Room Air 10/03/22 20:00 67 10/03/22 20:46 97.3 F L 69 22 H 146/48 H 95 Intake/Output Intake/Output: Intake & Output 02/01/1610/02/22 10/03/22 10/04/22 23:59 23:59 23:59 23:59 Intake Total 1720 2510 1750 1110 Output Total 507 058 9536 1100 Balance 960 1760 400 10 Meds/Results Medications: Active Medications Generic Name Dose Route Start Last Admin Trade Name Freq PRN Reason Stop Dose Admin Acyclovir 400 mg 09/30/22 09:00 10/04/22 09:16 Acyclovir 400 Mg Tablet PO 400 mg BID DAVID Administration Amlodipine Besylate 5 mg 09/30/22 09:00 10/04/22 09:16 Amlodipine Besylate 5 Mg Tablet PO 5 mg DAILY DAVID Administration Aspirin 325 mg 09/30/22 09:00 10/04/22 09:16 Aspirin 325 Mg Tablet PO 325 mg DAILY DAVID Administration Clopidogrel Bisulfate 75 mg 09/30/22 09:00 10/04/22 09:16 Clopidogrel Bisulfate 75 Mg Tablet PO 75 mg DAILY DAVID Administration Cyclosporine 1 drop 09/29/22 22:00 10/04/22 09:47 Cyclosporine 0.4 Ml Ophth Solution EACH EYE 1 drop Q12HR DAVID Administration Enoxaparin Sodium 40 mg 10/01/22 09:00 10/04/22 12:35
--- NOTE | 2022-10-04 12:40 | PM.PNNEP ---
Progress Note: A&P Assessment and Plan (1) Hyponatremia: Code(s): E87.1 - Hypo-osmolality and hyponatremia Status: Acute Assessment and Plan: acute suspicion falls on hypovolemia secondary to GI losses initial improvement noted with IVF resuscitation but then trended down again goal of therapy is a rate of change of 6 - 8mmol/L in 24 hours evaluation to date: TSH okay cortisol okay SPE/UPE and serum/urine osmo pending urine sodium not done off IVFs and started on salt tabs will attempt to wean off salt tabs follow serial sodium levels (2) C. difficile colitis: Code(s): A04.72 - Enterocolitis due to Clostridium difficile, not specified as recurrent Status: Acute Assessment and Plan: positive by stool testing on oral vancomycin supportive care (3) HTN (hypertension): Code(s): I10 - Essential (primary) hypertension Status: Chronic Assessment and Plan: reasonable control at this time follow trend of hemodynamics Will continue to follow. Subjective Date/time seen: 10/04/22 12:40 Still having some loose stools but this has improved with current interventions; sodium doing better with addition of salt tablets; no apparent distress noted; no other acute events overnight or earlier this AM. Exam Narrative: General: WD/WN male in NAD Heart: normal S1 and S2; no rub Lungs: clear to auscultation Abdomen: soft, nontender, nondistended, positive bowel sounds Extremities:no evidence of cyanosis, clubbing, or edema; bilateral BKA Skin: no nodules Objective Data Vital Signs Vital Signs: Vital Signs Temp Pulse Resp BP Pulse Ox O2 Del Method 10/04/22 12:00 72 10/04/22 08:00 68 10/04/22 09:17 77 10/04/22 09:12 77 151/46 H 10/04/22 04:00 73 10/04/22 03:59 98.0 F 70 20 146/55 H 94 10/04/22 00:00 64 10/03/22 20:00 69 22 H 95 Room Air 10/03/22 20:00 67 10/03/22 20:46 97.3 F L 69 22 H 146/48 H 95 Intake/Output Intake/Output: Intake & Output 02/05/23 02/06/23 02/07/23 02/08/23 23:59 23:59 23:59 23:59 Intake Total 1720 2510 1750 1110 Output Total 185 480 4079 1100 Balance 960 1760 400 10 Meds/Results Medications: Active Medications Generic Name Dose Route Start Last Admin Trade Name Eddieq PRN Reason Stop Dose Admin Acyclovir 400 mg 09/30/22 09:00 10/04/22 09:16 Acyclovir 400 Mg Tablet PO 400 mg BID DAVID Administration Amlodipine Besylate 5 mg 09/30/22 09:00 10/04/22 09:16 Amlodipine Besylate 5 Mg Tablet PO 5 mg DAILY DAVID Administration Aspirin 325 mg 09/30/22 09:00 10/04/22 09:16 Aspirin 325 Mg Tablet PO 325 mg DAILY DAVID Administration Clopidogrel Bisulfate 75 mg 09/30/22 09:00 10/04/22 09:16 Clopidogrel Bisulfate 75 Mg Tablet PO 75 mg DAILY DAVID Administration Cyclosporine 1 drop 09/29/22 22:00 10/04/22 09:47 Cyclosporine 0.4 Ml Ophth Solution EACH EYE 1 drop Q12HR DAVID Administration Enoxaparin Sodium 40 mg 10/01/22 09:00 10/04/22 12:35 Enoxaparin 40 Mg/0.4 Ml Syringe SUB-Q 40 mg DAILY DAVID Administration Finasteride 5 mg 09/30/22 09:00 10/04/22 09:17 Finasteride 5 Mg Tablet PO 5 mg DAILY DAVID Administration Gabapentin 600 mg 09/29/22 22:00 10/04/22 12:36 Gabapentin 300 Mg Capsule PO 600 mg 0800,1200,2100 DAVID Administration Gabapentin 300 mg 09/30/22 17:00 10/03/22 17:56 Gabapentin 300 Mg Capsule PO 300 mg 1700 DAVID Administration Losartan Potassium 100 mg 09/30/22 09:00 10/04/22 09:17 Losartan Potassium 100 Mg Tablet PO 100 mg DAILY DAVID Administration Melatonin 3 mg 09/29/22 21:50 10/02/22 23:16 Melatonin 3 Mg Tablet PO 3 mg QHS PRN Administration sleep Miconazole Nitrate 1 applic 09/30/22 09:00 Miconazole Nitrate 2% Cream 30 Gm Tube TOPICAL BID PRN Rash Mirabegron 50 mg 09/30/22 09:0
[2022-10-04] MEDS: GABAPENTIN 300 MG CAPSULE PO (18:05)
[2022-10-05] VITALS: PULSE 69
[2022-10-05] MEDS: VANCOMYCIN ORAL 125 MG/2.5 ML SYRUP PO ×2 (00:17→05:18)
[2022-10-05 04:00] VITALS: PULSE 64
[2022-10-05 05:39] VITALS: BP 132/57; PULSE 68; RESP 18; TEMP 36.8; O2SAT 94
[2022-10-05 08:00] VITALS: PULSE 74
[2022-10-05 08:31] LABS: Anion Gap 2 mmol/L (8-16); Blood Urea Nitrogen 8 mg/dL (9-20); Calcium 7.5 mg/dL (8.4-10.2); Carbon Dioxide 28 mmol/L (22-30); Chloride 98 mmol/L (98-107); Estimated Glomerular Filt Rate > 60; Glucose 90 mg/dL (65-110); Phosphorus 3.3 mg/dL (2.5-4.5); Potassium 4.3 mmol/L (3.4-5.0); Sodium 128 mmol/L (137-145)
[2022-10-05] MEDS: GABAPENTIN 300 MG CAPSULE 600 MG PO (09:13)
[2022-10-05] MEDS: amLODIPine BESYLATE 5 MG TABLET PO (09:14)
[2022-10-05] MEDS: ACYCLOVIR 400 MG TABLET PO (09:14)
[2022-10-05] MEDS: CLOPIDOGREL BISULFATE 75 MG TABLET PO (09:14)
[2022-10-05] MEDS: ASPIRIN 325 MG TABLET PO (09:14)
[2022-10-05] MEDS: ENOXAPARIN 40 MG/0.4 ML SYRINGE SUB-Q (09:15)
[2022-10-05] MEDS: FINASTERIDE 5 MG TABLET PO (09:15)
[2022-10-05] MEDS: LOSARTAN POTASSIUM 100 MG TABLET PO (09:15)
[2022-10-05] MEDS: cycloSPORINE 0.4 ML OPHTH SOLUTION 1 DROP EACH EYE (09:15)
[2022-10-05 09:16] VITALS: PULSE 71
[2022-10-05] MEDS: NEBIVOLOL HCL 5 MG TABLET 10 MG PO (09:16)
[2022-10-05] MEDS: MIRABEGRON 50 MG ER TABLET PO (09:16)
[2022-10-05] MEDS: OPTI-GEN TAB 1 TABLET PO (09:17)
[2022-10-05] MEDS: SIMVASTATIN 10 MG TABLET PO (09:17)
[2022-10-05] MEDS: TAMSULOSIN HCL 0.4 MG CAPSULE PO (09:17)
[2022-10-05] MEDS: SODIUM CHLORIDE 1 GM TABLET PO (09:17)
[2022-10-05] MEDS: VITAMIN B COMPLEX CAPSULE 1 CAP PO (09:18)
--- NOTE | 2022-10-05 11:12 | PM.DS ---
DS: Admitting Diagnosis Discharge Date October 05, 2022 Admitting Diagnosis C diff, colitis DS: Discharge Diagnosis Discharge Diagnosis (1) C. difficile colitis: Code(s): A04.72 - Enterocolitis due to Clostridium difficile, not specified as recurrent Status: Acute Assessment and Plan: Continue p.o. vancomycin. Monitor stool output. Avoid laxatives (2) Acute hyponatremia: Code(s): E87.1 - Hypo-osmolality and hyponatremia Status: Acute Assessment and Plan: fluids stopped nephrology rounding, sodium is 122 today.. Will check serial electrolyte panels. pt is on salt tablets watch sodium levels possible dc in 1-2 days time home (3) Acute dehydration: Code(s): E86.0 - Dehydration Status: Acute Assessment and Plan: The patient responded well to the initial 2 L fluid bolus and heart rate has improved. resolved with fluids creat is normal now (4) BPH (benign prostatic hyperplasia): Code(s): N40.0 - Benign prostatic hyperplasia without lower urinary tract symptoms Status: Acute Assessment and Plan: Given the patient's history of BPH when we take the patient's catheter on he may have recurrent urinary retention. Continue patient's home Proscar and Flomax DS: Summary Hospital Course Hospital Course: Patient was admitted for C diff colitis and significant diarrhea started on oral vancomycin improved significantly. Patient is not toxic at all labs are normal. Feeling much better tolerating diet he can be discharged on oral vancomycin to complete 14 days Time Spent with Patient Time attestation: Total time spent providing and/or coordinating discharge services: Exam Narrative: Alert and oriented in no acute distress RS: clear to ausculation GI no tender, non distended, no palpable mass and BS present CVS S1 and S2, present, RRR no murmurs EXtremities bilateral LE amputation NEuro: alert and oriented and non focal SKin: No rash or ulcer noted. DS: Data Data Completed and Pending Labs on day of discharge: Labs from last 24 hours 10/05/22 09/30/22 07:48 02:54 Sodium 128 L Potassium 4.3 Chloride 98 Carbon Dioxide 28 Anion Gap 2 L BUN 8 L Creatinine 0.50 L Estim Creat Clear Calc Not Reportable Estimated GFR > 60 Glucose 90 Calcium 7.5 L Phosphorus 3.3 Albumin 3.0 L [place]/Lambda Ratio 2.99 H Free [place] Light Chains 45.7 H Free [place] Light Chain 15.3 Discharge Plan Discharge Attending physician on discharge: Daniel Guevara Consulting providers: Solo Gay Discharging Clinician: Daniel Guevara Patient Disposition: Home, Self-Care Activity: no preference Diet: as tolerated Patient Instructions: Antibiotic Form Stand Alone Forms: General Discharge Information Follow-up/Referrals: Jesus Trinh MD [Primary Care Provider] - Discharge Medications: New vancomycin 1,000 mg Recon Soln 125 mg PO Q6HR 10 Days Qty: 40 0RF Continued melatonin 3 mg tablet 3 mg PO QHS PRN (Reason: sleep) gabapentin 300 mg capsule See Rx Instructions .ROUTE .COMPLEX Rx Instructions: Take 2( 600mg) in AM and at noon, 1 (300 mg) at 1700, and 2 (600 mg) at bedtime. Total of 2100 mg a day. ketoconazole 2 % cream 1 applic TOPICAL BID PRN (Reason: Rash) tamsulosin 0.4 mg capsule 0.4 mg PO DAILY Qty: 30 5RF amlodipine 5 mg tablet 5 mg PO DAILY Qty: 90 1RF Myrbetriq 50 mg tablet extended release 24 hr 50 mg PO DAILY Qty: 90 2RF nystatin 100,000 unit/gram powder 1 applic TOPICAL BID PRN (Reason: Itching) Qty: 60 2RF nebivolol [Bystolic] 10 mg tablet 10 mg PO DAILY Qty: 90 2RF simvastatin 10 mg tablet 10 mg PO DAILY Qty: 90 0RF clopidogrel 75 mg tablet 75 mg PO DAILY Qty: 90 0RF tramadol 50 mg tablet 50 mg PO Q6H PRN (Reason: Pain (Scale Score 4-6)) Qty: 120 5RF acyclovir
--- NOTE | 2022-10-05 12:13 | PC.NURSE ---
Received a phone call regarding the vancomycin prescription. The pharmacist states that the prescription is for IV however, the script sent stated PO 6hr syrup. Provider notified and will follow-up with the pharmacist to clarify prescription.
[2022-10-06 17:13] LABS: Chloride Rand Ur 68 mmol/L (32-290); Chloride/Creatinine Rand Ur 42 (23-275); Creatinine Random Urine 161 mg/dL (20-320)
[2022-10-06 23:58] LABS: Abnormal Protein Band 1 25 mg/dL; Creatinine, Random Urine 158 mg/dL (20-320); Total Protein/Creatinine Ratio 810 mg/g creat (25-148)
== END 2022-10-05 12:16 | disposition home or self-care (01) | DRG 372 ==
LOC: ANHED 09-29 07:47 → ANH3MEDSUR 09-29 09:00 → ANH2MED 09-29 10:43
PROVIDERS: Family Medicine; Internal Medicine; Internal Medicine Nephrology; Admitting Provider Internal Medicine; Emergency Provider Emergency Medicine; PCP Family Medicine Adolescent Medicine; Visit Provider Chiropractor
DX: A04.72 Enterocolitis due to Clostridium difficile, not specified as recurrent (principal); E87.1 Hypo-osmolality and hyponatremia; E86.0 Dehydration; E78.5 Hyperlipidemia, unspecified; G54.7 Phantom limb syndrome without pain; H26.9 Unspecified cataract; I10 Essential (primary) hypertension; I48.91 Unspecified atrial fibrillation; I73.9 Peripheral vascular disease, unspecified; N40.1 Benign prostatic hyperplasia with lower urinary tract symptoms; R35.0 Frequency of micturition; Z79.82 Long term (current) use of aspirin; Z90.49 Acquired absence of other specified parts of digestive tract; Z89.512 Acquired absence of left leg below knee; Z89.511 Acquired absence of right leg below knee; Z20.822 Contact with and (suspected) exposure to COVID-19
CPT/HCPCS: 36415; 51702; 74177; 80048; 80053; 80069; 81050; 82436; 82533; 82550; 82570; 82728; 83540; 83550; 83690; 83883; 83930; 83935; 84100; 84155; 84156; 84165; 84166; 84295; 84300; 84439; 84443; 84480; 84540; 85025; 85027; 87045; 87177; 87209; 87269; 87272; 87427; 87493; 87637; 89055; 93005; 96365; 96366; 96375; 97161; 97165; 97530; 97535; 99285; A9270; G0378; J1650; J2405; J7030; J7060; J7070; J7120; Q9967

== ENCOUNTER 2024-01-29 15:54 | Outpatient (CLI) | payer MEDICARE, SELFPAY ==
--- NOTE | ~2024-01-29 | XR_ITS ---
[[id number] ] INDICATION: Left rib pain TECHNIQUE: Frontal projection of the upper left ribs, frontal projection of the lower left ribs, obli que projection of all the left ribs, frontal inspiratory chest x-ray for interpretation. FINDINGS: There are no displaced rib fractures identified. There are no soft tissue abnormality see n. The lower ribs are not well visualized. The lungs are clear. 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 There is evidence of chronic granulomatous disease in the mediastinum. IMPRESSION: 1:No acute displaced rib fractures. Limited study. Reviewed, dictated and finalized at location B.
== END 2024-01-29 15:55 ==
PROVIDERS: PCP Family Medicine Adolescent Medicine; Visit Provider Family Medicine Adolescent Medicine
DX: R07.89 Other chest pain (principal)
CPT/HCPCS: 71101

== ENCOUNTER 2025-01-07 10:36 | Outpatient (CLI) | payer MEDICARE, SELFPAY ==
--- NOTE | ~2025-01-07 | CT_ITS ---
Non-contrast CT scan of the Abdomen and Pelvis Clinical indication: BPH Technique: 2.5 mm axial scans were obtained through the abdomen and pelvis without intravenous or or al contrast. Dose reduction technique was used on this scan by utilizing automated exposure control a nd iterative reconstruction technique. The dose-length product (DLP) was 1322.02 mGy-cm. COMPARISON: 09/29/2022 Findings: Images through the lung bases reveal linear left lower lobe scarring. Calcified right lowe r lobe granuloma present. 4 mm nonobstructing right renal stone present. No left renal stone present. No ureteral stone or hydr onephrosis on either side. Small hepatic cysts are present. The spleen, pancreas, gallbladder, and adrenals appear normal. There are atherosclerotic calcifications of the aorta. . There is no evidence of bowel obstruction. Images through the pelvis were performed. There is no evidence of ascites or lymphadenopathy. Urinary bladder unremarkable. No pelvic mass seen. No ascites. Small fat-containing left inguinal hernia pre sent. Stable degenerative spondylosis of the spine. Impression: No prostatic enlargement evident. 4 mm nonobstructing right renal stone. Small fat-containing left inguinal hernia. Reviewed, dictated and finalized at [facility]. Impression: No prostatic enlargement evident. 4 mm nonobstructing right renal stone. Small fat-containing left inguinal hernia.
--- OUTSIDE RECORDS SUMMARY | 2025-01-07 10:55 | XMS_ITS | Clinical Summary ---
Author Organization [facility] Address [address] [place] [address] Care Team Providers Care Manager Library Name Role Phone Jesus Trinh MD Primary Care Provider [phone] Theo Langston MD Unavailable [phone] Allergies Active Allergy Reactions Criticality Noted Date Comments Morphine Itching Low 10/16/2017 Medications nebivolol 10 MG tabletIndicati ons:Hypertensi on Take 10 mg by mouth daily. 9 Active finasteride 5 MG tabletIndicati ons:Hypertensi on Take 5 mg by mouth daily. 9 Active Flaxseed, Linseed, (FLAX SEED OIL OR)Indications :Deficiency of other nutrient elements Take 1 capsule by mouth daily. 9 Active B complex-C Cap capsuleIndicat ions:Deficienc y of other nutrient elements Take 1 capsule by mouth daily. 9 Active amlodipine 5 MG tablet [The details of the medication are not available because there are pending changes by a home health clinician.] 30 tablet 9 Active Additional Information Patient taking differently:5 mg Oral Daily,Indications: Hypertension, Reported on 03/06/2019 clopidogrel 75 MG tablet Take 1 tablet (75 mg total) by mouth daily. 30 tablet 1 9 Active tamsulosin 0.4 MG Cap [The details of the medication are not available because there are pending changes by a home health clinician.] 30 capsule 1 9 Active Additional Information Patient taking differently:0.4 mg Oral Daily,Indications: Urinary Retention, Reported on 03/06/2019 gabapentin 300 MG capsule [The details of the medication are not available because there are pending changes by a home health clinician.] 90 capsule 9 Active Additional Information Patient taking differently:600 mg Oral 3 times daily,Indications: Neuropathy, Reported on 03/06/2019 acyclovir 400 MG tabletIndicati ons:Infection Take 400 mg by mouth 2 (two) times daily. Active docusate sodium 100 MG capsuleIndicat ions:Constipat ion Take 100 mg by mouth 2 (two) times daily. Active diphenhydrAMIN E 25 MG tabletIndicati ons:Seasonal Allergy Take 50 mg by mouth every 6 (six) hours as needed for Itching. Active acetaminophen 500 MG tabletIndicati ons:Pain Take 1,000 mg by mouth every 6 (six) hours as needed for Pain. Active polyethylene glycol (MIRALAX) powderIndicati ons:Constipati on Take 17 g by mouth daily. Active mirabegron ER 25 MG 24 hr tabletIndicati ons:Prostatic Disease Take 50 mg by mouth daily. Active doxylamine (NITETIME SLEEP-AID) 25 MG tabletIndicati ons:Sleep Disorder Take 50 mg by mouth nightly as needed for Sleep. Active losartan 100 MG tablet Take 100 mg by mouth daily. 2 Active hydrocodone-ac etaminophen (NORCO) 5-325 MG tablet [The details of the medication are not available because there are pending changes by a home health clinician.] 40 tablet 9 Active Additional Information Patient taking differently:1 tablet Oral Every 4 hours PRN,Indications: Chronic Pain, Reported on 09/27/2019 SIMVASTATIN 10 MG tablet TAKE 1 TABLET BY MOUTH DAILY 30 tablet 9 Active Coenzyme Q10 10 MG capsuleIndicat ions:Heart health nutrition Take 10 mg by mouth daily. Indications: Heart health nutrition 9 Active Multiple Vitamins-Dewey als (MULTIVITAMIN MEN 50+) TabIndications :Nutritional Support Take 1 tablet by mouth daily. Indications: Nutritional Support Active oxyCODONE-acet aminophen 7.5-325 MG tabletIndicati ons:Acute Pain < 3 Day Supply Take 2 tablets by mouth every 6 (six) hours as needed for Pain. Indications: Acute Pain < 3 Day Supply Active aspirin 325 MG tabletIndicati ons:Anticoagul ant Therapy Take 325 mg by mouth daily. Indications: Anticoagulant Therapy 9 Active Active Problems Problem Noted Date Diagnosed Date S/P bilateral BKA (below knee amputation) (CMS/H CC HHS/HCC) 11/29/2018 Osteoarthritis of right shou lder, unspecified osteoarthritis type 11/29/2018 S/P bilateral BKA (below knee amputation) (CMS/H CC HHS/HCC) 10/01/2018 Assessment & Plan (10/07/2018 5:19 AM ADVERTISING ASSOCIATE): Acute, POA S/p bilateral TMA with Dr Contreras on 09/20 Vascular insufficiency per vascular S/p b/l BKA 10/04 - Ceftazidime 2g q8hrs - Discuss with Vascular/ID about d/c ABX now that source control achieved - Pain: oxycodone 20mg BID + norco 10 q6h prn for breakthrough - miralax BID, colace 100mg qhs, may decrease to miralax qd due to multiple large BM with incontienence - wound changes per vascular - f/u blood cultures - trend CBC daily - f/u vascular recs Essential hypertension 10/01/2018 Assessment & Plan (10/01/2018 9:12 PM ADVERTISING ASSOCIATE): Chronic, stable BPs 130-140/60-70 Cont Home Meds: -Amlodipine 5mg -Losartan 50mg -nebivolol 10mg Anemia 10/01/2018 Assessment & Plan (10/07/2018 5:19 AM ADVERTISING ASSOCIATE): Chronic, POA Downtrending, consider transfusion per Vascular B12 and Folate WNL No evidence of CKD Etiology likely ACD vs JENAE - iron studies consistent with Anemia of chronic disease - s/p 1U pRBC 10/04 and again 10/06 - trend CBC daily Arterial insufficiency of lower extremity 2018 Assessment & Plan (10/06/2018 11:52 AM ADVERTISING ASSOCIATE): Chronic, POA ABIs at last admission: R ZACHARY 0.348 and L ZACHARY 0.217 suggesting severe PVD in a tibial distribution Pt to need bilateral midcalf amputations - on ASA, restart plavix - pravastatin 20mg Assessment & Plan (09/13/2018 7:09 AM ADVERTISING ASSOCIATE): Patient reports he has been seen by vascular surgeon and underwent ABIs,which he states were abnormal. -Vascular surgery consulted, appreciate recommendations -Obtain lipid panel: Lower extremity edema 09/13/2018 Assessment & Plan (09/13/2018 10:09 AM ADVERTISING ASSOCIATE): Pt with bilateral +1 pitting Lower extremity edema. Also with difficulty with urination, increased frequency with small output - Will trial one time dose of 20mg lasix IV - will trial flomax daily Resolved Problems Problem Noted Date Diagnosed Date Resolved Date Fever 10/05/2018 10/18/2018 Assessment & Plan (10/06/2018 11:53 AM ADVERTISING ASSOCIATE): Acute x2 < started less than 48 hours from admission/surgery DDx: Post-operative vs Drug fever vs infection Chest Xray clear initially but with crackles on exam - If subsequent fevers consider Blood cultures, UA, repeat cxr and HAP treatment - Monitor CBC - Continuing ABX minimally 2 days as noted above - consider dc if source control Cough 10/02/2018 10/18/2018 Assessment & Plan (10/07/2018 8:16 AM ADVERTISING ASSOCIATE): Acute, improved - CXR negative for acute process - Cough suppressant PRN - IS started and Reencouraged to USe - with fever, cough (non productive), crackles on exam, concern for developing pneumonia vs post op inflammatory fever with atelectasis Peripheral vascular disease of lower extremity with ulceration ([facility]) 10/01/2018 10/18/2018 Gross hematuria 09/19/2018 10/18/2018 Cellulitis 09/12/2018 10/18/2018 Assessment & Plan (09/13/2018 7:16 AM ADVERTISING ASSOCIATE): Patient w/ continued erythema bilateral feet. Failed outpatient antibiotics (ciprofloxacin). Per pt, previous culture report grew out Pseudomonas. Minimal WBC elevation but CRP elevated. Underlying etiology likely related to arterial insufficiency -Follow-up prior imaging, new imaging pending vascular recs -Trend CBC daily. Will obtain B12/folate given reported history of neuropathy -Expand antibiotic coverage to include vancomycin and ceftazidime for gram- positive and pseudomonal coverage. Consider adding antifungal coverage if not improving -Pain control with gabapentin, Tylenol, [place], and Percocet Family History Medical History Relation Comments Hypertension Brother 1 Hypertension Brother 2 Hypertension Brother 3 Hypertension Brother 4 Hypertension Brother 5 Hypertension Brother 6 Hypertension Father Heart Attack Mother Heart Disease Mother Hypertension Sister Stroke Sister Cancer Son testicular cance r Relation Status Comments Brother 1 Alive Brother 2 Alive Brother 3 Alive Brother 4 Alive Brother 5 Alive Brother 6 Alive Daughter Alive Father (Age 70) in MVC Mother (Age 70) Sister Alive Son Alive Social History Tobacco Use Types Packs/Day Years Used Date Smoking Tobacco: Never Smokeless Tobacco: Never Alcohol Use Standard Drinks/Week Comments Yes 11.7 (1 standard drink = 0.6 oz pure alcohol) 3 oz with dinner nightly Sex and Gender Information Value Date Recorded Sex Assigned at Not on file Legal Sex Male 11:10 PM CDT Gender Identity Not on file Sexual Orientation Not on file Last Filed Vital Signs Vital Sign Reading Time Taken Comments Blood Pressure 122/64 10/24/2019 8:01 AM ADVERTISING ASSOCIATE Pulse 60 10/24/2019 8:01 AM ADVERTISING ASSOCIATE Temperature 35.6 C (96.1 F) 10/24/2019 8:01 AM ADVERTISING ASSOCIATE Respiratory Rate 18 10/24/2019 8:01 AM ADVERTISING ASSOCIATE Oxygen Saturation 97% 10/24/2019 8:01 AM ADVERTISING ASSOCIATE Inhaled Oxygen Concentration - - Weight 98.7 kg (217 lb 9.5 oz) 03/17/2019 9:29 A M CDT Height 180.3 cm (5' 11 ) 03/17/2019 9:29 AM CDT Body Mass Index 30.35 03/17/2019 9:29 AM CDT Plan of Treatment Health Maintenance Due Date Last Done Comments ASCVD Statin 1944 DTaP, Tdap and Td Vaccines ( 1 - Tdap) 1963 Pneumococcal Vaccine: 50+ Ye ars (1 of 1 - PCV) 1994 Zoster Vaccines (1 of 2) 1994 Annual Medicare Wellness Visit 2009 RSV Immunization or 60+ Years (1 - 1-dose 75+ series) 2019 ASCVD LDL 09/12/2019 09/12/2018 COVID-19 Vaccine (1 - 2023-2 5 season) 2024 Meningococcal B Vaccine Aged Out No l onger eligible based on patient's age to complete this topic Meningococcal Vaccine Aged Out No breonna aleks eligible based on patient's age to complete this topic RSV Immunizations Under 20 Months Aged Out No longer eligible based on patient's age to complete this topic Procedures Procedure Name Priority Date/Time Associated Diagnosis Comments LIPID PANEL STAT 09/12/2018 1:31 PM ADVERTISING ASSOCIATE from Last 3 Months or Most Recently Relevant to Health Maintenance Results * (ABNORMAL) LIPID PANEL (09/12/2018 1:31 PM ADVERTISING ASSOCIATE) CHOLESTEROL 101 <200 MG/DL 09/12/2018 4:51 PM ADVERTISING ASSOCIATE [facility] TRIGLYCERIDES 36 <150 MG/DL 09/12/2018 4:51 PM [facility] HDL 37(L) >40.0 MG/DL 09/12/2018 4:51 PM [facility] LDL (CALCULATED) 57 <100 MG/DL 09/12/19 19 4:51 PM [facility] NON HDL CHOLESTEROL 64 <130 MG/DL 09/12 4:51 PM [facility] CHOL/HDL RATIO 2.7 0.0 - 4.5 09/12/2018 4:51 PM [facility] VLDL CALCULATION 7 5 - 55 MG/DL 09/12/2018 4:51 PM [facility] LIPID INTERPRETATION 09/12/2018 4:51 PM [facility] Comment: NIH CONCENSUS REPORT RECOMMENDATIONS: ADULT CHILD LOW RISK: CHOLESTEROL <200 <170 TRIGLYCERIDE <150 --- HDL >=60 --- LDL <100 <110 BORDERLINE: CHOLESTEROL 200-239 170-199 TRIGLYCERIDE 150-199 --- HDL 40-59 --- LDL 100-159 110-129 HIGH RISK: CHOLESTEROL >=240 >=200 TRIGLYCERIDE >=200 --- HDL <40 --- LDL >=160 >=130 09/12/2018 1:31 PM ADVERTISING ASSOCIATE us Cuate Sherwood MD LABORATORY Final Result [facility] [address] [place] [address], from Last 3 Months or Most Recently Relevant to Health Maintenance Insurance MED REPLACE [facility] MEDICARE MED REPLACE [facility] MEDICARE Advance Directives Documents on File Type Date Recorded Patient Director Of Dietary Expl anation Advance Directives and Living Will 07/10/2019 2:22 PM 06/26/07 [place] FO RM POA FOR HEALTH CARE * Full Code (Latest Code Status on File) Date Activated Date Inactivated Comments 10/08/2018 4:53 PM 10/19/2018 4:20 PM * Full Code Date Activated Date Inactivated Comments 10/04/2018 3:55 PM 10/08/2018 4:28 PM * Full Code Date Activated Date Inactivated Comments 10/01/2018 7:54 PM 10/04/2018 3:55 PM * Full Code Date Activated Date Inactivated Comments 09/20/2018 10:42 AM 09/24/2018 5:02 PM * Full Code Date Activated Date Inactivated Comments 09/16/2018 5:04 PM 09/20/2018 10:42 AM Care Teams Manager Library Relationship Specialty Start Date End Date Jesus Trinh MD [address] [address] PCP - General FAMILY PRACTICE 09/12/18 Theo Langston MD [address] [address] Surgeon SURGERY 06/30/19
--- OUTSIDE RECORDS SUMMARY | 2025-01-07 10:55 | XMS_ITS | Encounter Summary ---
Author Organization [facility] Address [facility] [place] [address] Care Team Providers Care Top Dyeing Machine Tender Name Role Phone Jesus Trinh MD Primary Care Provider [phone] Bennett Contreras MD Unavailable Theo Langston MD Unavailable [phone] Encounter Details Date Type Department Care Team (Late st Contact Info) Description 10/21/2018 Hospital Follow-up Call [facility] [place] [address] Sheryl Sevilla Social History Tobacco Use Types Packs/Day Years Used Date Smoking Tobacco: Never Smokeless Tobacco: Never Alcohol Use Standard Drinks/Week Comments Yes 0 (1 standard drink = 0.6 oz pur e alcohol) Rarely Sex and Gender Information Value Date Recorded Sex Assigned at Not on file Legal Sex Male 11:10 PM CDT Gender Identity Not on file Sexual Orientation Not on file documented as of this encounter Functional Status * RETIRED Are you deaf or do you have serious difficulty hearing Answer Date of Assessment Author Status No 10/08/2018 7:03 PM TIRE RECAPPER Activ e * RETIRED Are you blind or do you have serious difficulty seeing, even when wearing glasses? Answer Date of Assessment Author Status No 10/08/2018 7:03 PM TIRE RECAPPER Activ e * Do you have serious difficulty walking or climbing stairs? Answer Date of Assessment Author Status No 10/08/2018 7:03 PM Geraldine Fernández RN Active * Do you have difficulty dressing or bathing? Answer Date of Assessment Author Status Yes 10/08/2018 7:03 PM Geraldine Fernández RN Active * Because of a physical, mental, or emotional condition, do you have difficulty doing errands alone such as visiting a doctor's office or shopping? Answer Date of Assessment Author Status Yes 10/08/2018 7:03 PM Geraldine Fernández RN Active documented as of this encounter Mental Status * Because of a physical, mental, or emotional condition, do you have serious difficulty concentrating, remembering, or making decisions? Answer Entry Date Author Status Yes 10/08/2018 7:03 PM Geraldine Fernández RN Active documented in this encounter Plan of Treatment Not on file documented as of this encounter Visit Diagnoses Not on filedocumented in this encounter Care Teams Top Dyeing Machine Tender Relationship Specialty Start Date End Date Jesus Trinh MD [address] [address] PCP - General FAMILY PRACTICE 09/12/18 Bennett Contreras MD [address] [place] [id number] Vascular/Rn [facility] SURGERY 03/13/19 06/29/19 Theo Langston MD [address] [place] [id number] Surgeon SURGERY 06/30/19 documented as of this encounter
--- OUTSIDE RECORDS SUMMARY | 2025-01-07 10:55 | XMS_ITS | CONTINUITY OF CARE DOCUMENT ---
Author Name maira rao Address Unknown Organization [facility] Office Address [address] [place] [address] Phone [phone] Care Team Providers Care Medical Center Manager Name Role Phone Pranav MERA, Samson Unavailable [phone] Pranav MERA, Samson Unavailable [phone] DOTTIE WALTERS MD Unavailable INSURANCE PROVIDERS Payer name Policy type / Coverage type [place] [employer] party ID [facility] [id number] Other [id number]
--- OUTSIDE RECORDS SUMMARY | 2025-01-07 10:55 | XMS_ITS | Referral Summary ---
Author Organization CC [facility] [address] Address [address] [place] [address] Phone Care Team Providers Care Boat Camp Operator Name Role Phone Jesus Trinh MD Primary Care Prov ider Jesus Trinh MD Unavailable + Allergies Active Allergy Reactions Criticality Noted Date Comments Morphine Itching Low 10/16/2017 Medications acyclovir (ZOVIRAX) 400 mg tablet [The details of the medication are not available because there are pending changes by a home health clinician.] 0 3 Active Additional Information Patient taking differently:400 mg2 times daily, Reported on 10/16/2017 finasteride (PROSCAR) 5 mg tablet Take 5 mg by mouth daily. Active hydroCHLOROthia zide (HYDRODIURIL) 25 mg tablet Take 25 mg by mouth daily. Active nebivolol (BYSTOLIC) 10 mg tablet Take 10 mg by mouth daily. Active naproxen sodium 220 mg capsule Take 220 mg by mouth 2 (two) times a day. Active aspirin 325 mg tablet Take 1 tablet (325 mg total) by mouth daily. 30 tablet 11 8 Active PSYLLIUM HUSK (METAMUCIL ORAL)Indication s:constipation Take 1 Dose by mouth daily. Active MULTIVITAMIN ORALIndications :Other Take 1 Caplet by mouth daily. Active FLAXSEED ORALIndications :Other Take 1,000 mg by mouth daily. Active coenzyme Q10 10 mg capsuleIndicati ons:Other Take 10 mg by mouth daily. Active vitamin B comp with C no.4 150 mg tabletIndicatio ns:Vitamin Deficiency Prevention Take 1 tablet by mouth daily. Active polyethylene glycol (MIRALAX) 17 gram/dose powderIndicatio ns:constipation Take 17 g by mouth daily. 8 Active docusate sodium (COLACE) 100 mg capsuleIndicati ons:constipatio n Take 100 mg by mouth 3 (three) times a day as needed for constipation Active tamsulosin (FLOMAX) 0.4 mg extended release capsule Take 0.4 mg by mouth daily Active acetaminophen (TYLENOL) 500 mg tablet Take 1,000 mg by mouth every 6 (six) hours as needed for pain Active diphenhydrAMINE (diphenhydrAMIN E) 25 mg capsule Take 50 mg by mouth every 6 (six) hours as needed for itching Active mirabegron ER (MYRBETRIQ) 50 mg tablet extended release 24 hr Take 50 mg by mouth nightly Active simvastatin (ZOCOR) 10 mg tablet Take 10 mg by mouth nightly Active oxyCODONE-aceta minophen (PERCOCET) 7.5-325 mg per tabletIndicatio ns:Pain Take 2 tablets by mouth every 6 (six) hours as needed for pain 20 tablet 9 Active miconazole 2 % creamIndication s:cutaneous candidiasis Apply topically 2 (two) times a day 28.35 g 1 4 Active mupirocin (BACTROBAN) 2 % ointmentIndicat ions:Minor Bacterial Skin Infections Apply topically 2 (two) times a day 22 g 1 4 Active clopidogreL (PLAVIX) 75 mg tablet Take 1 tablet (75 mg total) by mouth daily 9 Active traMADoL (ULTRAM) 50 mg tablet Take 1 tablet (50 mg total) by mouth every 6 (six) hours as needed for pain 4 Active gabapentin (NEURONTIN) 300 mg capsule Take 1 capsule (300 mg total) by mouth 3 (three) times a day 4 Active losartan (COZAAR) 100 mg tablet Take 1 tablet (100 mg total) by mouth daily 4 Active Active Problems Problem Noted Date Diagnosed Date Non-healing wound of amputation stump 06/26/2019 Overview (06/26/2019): Added automatically from request for surgery [id number] Arthralgia of hip 08/25/2016 Overview (12/01/2016): Hip pain Knee pain 11/17/2014 Overview (12/01/2016): Knee pain Tobacco use 10/13/2014 Overview (12/01/2016): Tobacco use Social History Tobacco Use Types Packs/Day Years Used Date Smoking Tobacco: Former Smokeless Tobacco: Never Alcohol Use Standard Drinks/Week Comments Yes 2 (1 standard drink = 0.6 oz pur e alcohol) daily Sex and Gender Information Value Date Recorded Sex Assigned at Not on file Legal Sex Male 11:01 AM CHANGE ADVISOR Gender Identity Male 09/17/2023 1:32 PM CHANGE ADVISOR Sexual Orientation Straight 09/17/2023 1: 32 PM CHANGE ADVISOR Last Filed Vital Signs Vital Sign Reading Time Taken Comments Blood Pressure 120/68 10/06/2019 1:30 PM CHANGE ADVISOR Pulse 72 10/06/2019 1:30 PM CHANGE ADVISOR Temperature 36.9 C (98.5 F) 07/03/2019 8:50 AM CHANGE ADVISOR Respiratory Rate 15 07/03/2019 10:00 AM CHANGE ADVISOR Oxygen Saturation 98% 07/03/2019 10:00 AM CHANGE ADVISOR Inhaled Oxygen Concentration - - Weight 98.4 kg (217 lb) 10/06/2019 1:30 PM CHANGE ADVISOR Height 182.9 cm (6') 10/06/2019 1:30 PM CHANGE ADVISOR Body Mass Index 29.43 10/06/2019 1:30 PM CHANGE ADVISOR Plan of Treatment Not on file Medical Devices Implanted Type Area Medical Laboratory Assistant Device Identifier Shelf Expiration Date Model / Serial / Lot Baseplate Tibial Triathlon Tritanium 6 L77 Mm X W52 Mm Knee 4 Cruciform Peg Keel - [id number] Implanted:Qty: 1 on 10/16/2017 by Chase Borja MD at [facility] Right: Knee [employer] 07/13/2022 5536-B-600 / / [id number] Component Femoral Triathlon Pa 6 Knee Right Cruciate Retain Bead - [id number] Implanted:Qty: 1 on 10/16/2017 by Chase Borja MD at [facility] Right: Knee [employer] 08/11/2021 [id number]-F-602 / / [id number] Insert Tibial Triathlon X3 6 H9 Mm Knee Cruciate Substitute - [id number] Implanted:Qty: 1 on 10/16/2017 by Chase Borja MD at [facility] Right: Knee [employer] 04/29/2022 [id number] / / [id number] Component Patellar Triathlon Julia-Apatite H40 Mm Knee Bead - [id number] Implanted:Qty: 1 on 10/16/2017 by Chase Borja MD at [facility] Right: Knee [employer] 03/27/2019 [id number]-L-401 / / [id number] Procedures Procedure Name Priority Date/Time Associated Diagnosis Comments CTA ABDOMINAL AORTA AND BILATERAL ILIOFEMORAL RUNOFF Schedule Routine, Read Routine (OP Routine) 11/16/2023 10:49 AM CDT 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 There is lack of visualization of the anterior tibial artery on the left on delayed images. Electronically signed by: Efe Schneider M.D., MPH Narrative 11/16/2023 11:01 AM CDT EXAMINATION: CT ANGIOGRAPHY OF THE ABDOMEN, PELVIS, AND LOWER EXTREMITIES WITH CONTRAST HISTORY: Claudication ischemia TECHNIQUE: CT angiography of the abdomen, pelvis, and lower extremities was performed following the uneventful intravenous administration of 100 ml Optiray-350. Vascular 3D images were generated on a dedicated workstation and also reviewed. FINDINGS: No prior studies are available for comparison. VASCULAR FINDINGS: Abdominal Aorta and Branches: Celiac axis: no significant stenosis SMA: There is mild stenosis at the origin and at the level of the 2nd order branching. ALAN: Mild stenosis Right renal vessels: There are 2 right renal arteries with no stenosis. Left renal vessels: no significant stenosis Infrarenal aorta: no significant stenosis. No aneurysm. Pelvic Vessels: R. Common iliac artery: Mild stenosis with minimal atherosclerotic disease R. External iliac artery: no significant stenosis R. Internal iliac artery: no significant stenosis L. Common iliac artery: Mild stenosis with minimal atherosclerotic disease L. External iliac artery: no significant stenosis L. Internal iliac artery: no significant stenosis Right Lower Extremity: R. Common femoral artery: no significant stenosis R. Profunda femoris artery: no significant stenosis R. Superficial femoral artery: Mild stenosis R. Popliteal artery: Mild stenosis There is a right below-knee amputation. The remnant of the anterior tibial artery fills with contrast. Left Lower Extremity: L. Common femoral artery: no significant stenosis L. Profunda femoris artery: no significant stenosis L. Superficial femoral artery: no significant stenosis L. Popliteal artery: no significant stenosis L. Anterior tibial artery: Not visualized below the knee on delayed images There is a left below-knee amputation. Left knee arthroplasty. NON-VASCULAR FINDINGS: Visualized lung bases demonstrate atelectasis and scarring at the left lung base. There is mild emphysema. Multiple hepatic cysts are present. There is nodulation to the surface of the liver suggesting cirrhosis. Spleen, pancreas, adrenal glands, kidneys are normal. There is a contracted gallbladder. There is no obstruction pneumoperitoneum or free fluid. Appendix is not visualized. Osseous windows demonstrate no lytic or blastic lesions. Procedure Note Efe Schneider MD - 11/16/2023 EXAMINATION: CT ANGIOGRAPHY OF THE ABDOMEN, PELVIS, AND LOWER EXTREMITIES WITH CONTRAST HISTORY: Claudication ischemia TECHNIQUE: CT angiography of the abdomen, pelvis, and lower extremities was performed following the uneventful intravenous administration of 100 ml Optiray-350. Vascular 3D images were generated on a dedicated workstation and also reviewed. FINDINGS: No prior studies are available for comparison. VASCULAR FINDINGS: Abdominal Aorta and Branches: Celiac axis: no significant stenosis SMA: There is mild stenosis at the origin and at the level of the 2nd order branching. ALAN: Mild stenosis Right renal vessels: There are 2 right renal arteries with no stenosis. Left renal vessels: no significant stenosis Infrarenal aorta: no significant stenosis. No aneurysm. Pelvic Vessels: R. Common iliac artery: Mild stenosis with minimal atherosclerotic disease R. External iliac artery: no significant stenosis R. Internal iliac artery: no significant stenosis L. Common iliac artery: Mild stenosis with minimal atherosclerotic disease L. External iliac artery: no significant stenosis L. Internal iliac artery: no significant stenosis Right Lower Extremity: R. Common femoral artery: no significant stenosis R. Profunda femoris artery: no significant stenosis R. Superficial femoral artery: Mild stenosis R. Popliteal artery: Mild stenosis There is a right below-knee amputation. The remnant of the anterior tibial artery fills with contrast. Left Lower Extremity: L. Common femoral artery: no significant stenosis L. Profunda femoris artery: no significant stenosis L. Superficial femoral artery: no significant stenosis L. Popliteal artery: no significant stenosis L. Anterior tibial artery: Not visualized below the knee on delayed images There is a left below-knee amputation. Left knee arthroplasty. NON-VASCULAR FINDINGS: Visualized lung bases demonstrate atelectasis and scarring at the left lung base. There is mild emphysema. Multiple hepatic cysts are present. There is nodulation to the surface of the liver suggesting cirrhosis. Spleen, pancreas, adrenal glands, kidneys are normal. There is a contracted gallbladder. There is no obstruction pneumoperitoneum or free fluid. Appendix is not visualized. Osseous windows demonstrate no lytic or blastic lesions. IMPRESSION: 1. 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 There is lack of visualization of the anterior tibial artery on the left on delayed images. Electronically signed by: Efe Schneider M.D., MPH Padmini Bond NP IM CT PROCEDURES Final Result * eGFR (07/03/2019 7:25 AM CHANGE ADVISOR) eGFR 104 mL/min/1.7 3 m2 [facility] Comment: Interpretive Data Reference Interval Normal >/= 90 mL/min/1.73m2 Mildly decreased* 60 - 89 mL/min/1.73m2 Mildly to moderately decreased 45 - 59 mL/min/1.73m2 Moderately to severely decreased 30 - 44 mL/min/1.73m2 Severely decreased 15 - 29 mL/min/1.73m2 Kidney Failure < 15 mL/min/1.73m2 *Relative to young adult level If -[place] multiply value by 1.16. Estimated glomerular filtration rate is determined by the CKD-EPI equation recommended by the National Kidney Foundation (KDIGO 2012 Clinical Practice Guideline for the Evaluation and Management of Chronic Kidney Disease. Kidney Intnl Suppl Aug 2012;3:1). The CKD-EPI equation should not be used for patients with unstable renal function and has not been validated in children and those over 70. Current interpretive data was last reviewed 2016. Blood specimen (specimen) 07/03/2019 7:25 AM CHANGE ADVISOR 07/03/2019 7:29 AM CHANGE ADVISOR us Waldemar Platt MD LAB BLOOD ORDERABLES Final Result Performing Organization Address City/State/ZIP Co la Phone Number [facility] [id number] Department [place] [address] from Last 3 Months or Most Recently Relevant to Health Maintenance Insurance UHC MEDICARE ADVANTAGE UHC MEDICARE ADVANTAGE [employer] MEDICARE UHC MEDICARE ADVANTAGE A[employer] MEDICARE Advance Directives For more information, please contact: [phone] * Full Code (Latest Code Status on File) Date Activated Date Inactivated Comments 10/20/2017 10:04 AM 07/03/2019 5:49 AM * Full Code Date Activated Date Inactivated Comments 10/16/2017 5:27 PM 10/18/2017 4:41 PM Care Teams Boat Camp Operator Relationship Specialty Start Date End Date Jesus Trinh MD [address] [place] [address] PCP - General 04/12/20 Jesus Trinh MD [address] [place] [address] 04/12/20
--- OUTSIDE RECORDS SUMMARY | 2025-01-07 10:55 | XMS_ITS | Clinical Summary ---
Author Organization [facility] [address] Address [address] [place] [address] Phone Care Team Providers Care Formulator Name Role Phone Jesus Trinh MD Primary [...] (06/26/2019): Added automatically from request for surgery [id number] Arthralgia of hip 08/25/2016 Overview (12/01/2016): Hip pain Knee pain 11/17/2014 Overview (12/01/2016): Knee pain Tobacco use 10/13/2014 Overview (12/01/2016): Tobacco use Surgical History Surgery Date Site/Laterality Comments OTHER SURGICAL HISTORY 08/27/2009 - 08/26/2010 Chronic drainage right elbow olecranon sinus: excision and closure right elbow sinus OTHER SURGICAL HISTORY 08/27/2009 - 08/26/2010 Right chronic olecranon bursitis: Right olecranon bursectomy OTHER SURGICAL HISTORY 08/27/2007 - 08/26/2008 Internal derangement left knee: Left knee arthroscopy with partial medial meniscectomy in posterior horn using 50% resection under general anesthesia OTHER SURGICAL HISTORY 08/27/2007 - 08/26/2008 Right knee internal derangement: Right knee arthroscopy with partial medial meniscectomy JOINT REPLACEMENT Medical History Medical History Date Comments Hx Other Medical Chronic drainag e right elbow olecranon sinus Hx Other Medical Right chronic o lecranon bursitis Hx Other Medical Internal derang ement left knee Hx Other Medical Right knee inte rnal derangement Hx Other Medical Left total knee replacement 09-29-13; Comments: [facility] 10/13/2014 - Hx Other Medical Left total knee replacement on 09-29-14.; Comments: [facility] 11/17/2014 - Hx Other Medical 09-04-16 80 mg. D epo-Medrol/2 cc marcaine L knee.; Comments: [facility] 09/05/2016 - Hx Other Medical 11-27-16 Right kn ee Synvisc injection.; Comments: 11-27-16 [facility] 11/28/2016 - Hypertension Family History Medical History Relation Name Comments Car Accident Father 2 Car accident; C ause of : Car accident Other Father 2 Heart; Arthritis Mother 2 Arthritis; Heart attack Mother 2 Myocardial infa rction; Cause of : Myocardial infarction Cancer Other 3 Family H/O Cancer; Hypertension Other 3 Family H/O Hypertension; Relation Name Status Comments Father 1 Alive Father 2 Mother 1 Alive Mother 2 Other 1 Family H/O Alive Other 2 Family H/O Alive Other 3 Family H/O Social History Tobacco Use Types Packs/Day Years Used Date Smoking Tobacco: Former Smokeless Tobacco: Never Alcohol Use Standard Drinks/Week Comments Yes 2 (1 standard drink = 0.6 oz pur e alcohol) daily Sex and Gender Information Value Date Recorded Sex Assigned at Not on file Legal Sex Male 11:01 AM PLANT CLERK Gender Identity Male 09/17/2023 1:32 PM PLANT CLERK Sexual Orientation Straight 09/17/2023 1: 32 PM PLANT CLERK Obstetrics History Last Filed Vital Signs Vital Sign Reading Time Taken Comments Blood Pressure 120/68 10/06/2019 1:30 PM PLANT CLERK Pulse 72 10/06/2019 1:30 PM PLANT CLERK Temperature 36.9 C (98.5 F) 07/03/2019 8:50 AM PLANT CLERK Respiratory Rate 15 07/03/2019 10:00 AM PLANT CLERK Oxygen Saturation 98% 07/03/2019 10:00 AM PLANT CLERK Inhaled Oxygen Concentration - - Weight 98.4 kg (217 lb) 10/06/2019 1:30 PM PLANT CLERK Height 182.9 cm (6') 10/06/2019 1:30 PM PLANT CLERK Body Mass Index 29.43 10/06/2019 1:30 PM PLANT CLERK Plan of Treatment Health Maintenance Due Date Last Done Comments Albumin Creatinine Ratio, Urine 1944 Depression Screening 1944 Fall Risk Assessment 1944 Hemoglobin A1C 1944 Dilated Eye Exam 1944 Foot Exam 1944 DTaP/Tdap/Td Vaccine (1 - Tdap) 1955 Hepatitis B Screening 1962 Pneumococcal vaccine 65+ (1 of 2 - PCV) 1963 Zoster Vaccine (1 of 2) 1994 Well Visit 65+ 2009 Lipid Panel 09/12/2019 09/12/2018 eGFR 07/03/2020 07/03/2019, 10/02/2017 Influenza Vaccine (Season Ended) 2025 Abdominal Aortic Aneurysm (AAA) Screen Completed , 09/23/2018 Medical Devices Implanted Type Area Fruit Canner Device Identifier Shelf Expiration Date Model / Serial / Lot Baseplate Tibial Triathlon Tritanium 6 L77 Mm X W52 Mm Knee 4 Cruciform Peg Keel - [id number] Implanted:Qty: 1 on 10/16/2017 by Chase Borja MD at [facility] Right: Knee [employer] 07/13/2022 5536-B-600 / / [id number] Component Femoral Triathlon Pa 6 Knee Right Cruciate Retain Bead - [id number] Implanted:Qty: 1 on 10/16/2017 by Chase Borja MD at [facility] Right: Knee [employer] 08/11/2021 [id number]-F-602 / / [id number] Insert Tibial Triathlon X3 6 H9 Mm Knee Cruciate Substitute - [id number] Implanted:Qty: 1 on 10/16/2017 by Chase Borja MD at [facility] Right: Knee [employer] 04/29/2022 [id number] / / [id number] Component Patellar Triathlon Julia-Apatite H40 Mm Knee Bead - [id number] Implanted:Qty: 1 on 10/16/2017 by Chase Borja MD at 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) EGFR STAT 07/03/2019 7:25 AM PLANT CLERK from Last 3 Months or Most Recently [...] Electronically signed by: Efe Schneider M.D., MPH us Padmini Heather Strope FOIL SPINNER IMG CT PROCEDURES Final Result * eGFR (07/03/2019 7:25 AM PLANT CLERK) eGFR 104 mL/min/1.7 3 m2 [facility] Comment: Interpretive Data Reference Interval Normal >/= 90 mL/min/1.73m2 Mildly decreased* 60 - 89 mL/min/1.73m2 Mildly to moderately decreased 45 - 59 mL/min/1.73m2 Moderately to severely decreased 30 - 44 mL/min/1.73m2 Severely decreased 15 - 29 mL/min/1.73m2 Kidney Failure < 15 mL/min/1.73m2 *Relative to young adult level If -Citizen Of [place] multiply value by 1.16. Estimated glomerular filtration [...] 2016. Blood specimen (specimen) 07/03/2019 7:25 AM PLANT CLERK 07/03/2019 7:29 AM PLANT CLERK Waldemar Platt MD LAB BLOOD ORDERABLES Final Result [facility] [id number] Department [place] [address] from Last 3 Months or Most Recently Relevant to Health Maintenance Insurance [facility] MEDICARE ADVANTAGE UHC MEDICARE ADVANTAGE [facility] MEDICARE UHC MEDICARE ADVANTAGE [facility] MEDICARE [facility] MEDICARE Address: [id number] [place] [address] Advance Directives For more information, please contact: [phone] * Full Code (Latest Code Status on File) Date Activated Date Inactivated Comments 10/20/2017 10:04 AM 07/03/2019 5:49 AM * Full Code Date Activated Date Inactivated Comments 10/16/2017 5:27 PM 10/18/2017 4:41 PM Care Teams Formulator Relationship Specialty Start Date End Date Jesus Trinh MD [address] [place] [address] PCP - General 04/12/20 Jesus Trinh MD [address] [place] [address] 04/12/20
== END 2025-01-07 10:37 | disposition home or self-care (01) ==
PROVIDERS: PCP Family Medicine Adolescent Medicine; Visit Provider Urology
DX: N20.0 Calculus of kidney (principal); K40.90 Unilateral inguinal hernia, without obstruction or gangrene, not specified as recurrent
CPT/HCPCS: 74176

== ENCOUNTER 2025-01-07 13:49 | Outpatient (CLI) | payer MEDICARE, SELFPAY ==
--- OUTSIDE RECORDS SUMMARY | 2025-01-07 14:00 | XMS_ITS | Referral Summary ---
Author Organization [facility] [email or web address] Address [address] [place] [address] Phone Care Team Providers Care Stage Rigger Name Role Phone Jesus Trinh MD Primary [...] (06/26/2019): Added automatically from request for surgery [id number] Arthralgia of hip 08/25/2016 Overview (12/01/2016): Hip [...] on file Legal Sex Male 11:01 AM DELINQUENT TAX COLLECTION ASSISTANT Gender Identity Male 09/17/2023 1:32 PM DELINQUENT TAX COLLECTION ASSISTANT Sexual Orientation Straight 09/17/2023 1: 32 PM DELINQUENT TAX COLLECTION ASSISTANT Last Filed Vital Signs Vital Sign Reading Time Taken Comments Blood Pressure 120/68 10/06/2019 1:30 PM DELINQUENT TAX COLLECTION ASSISTANT Pulse 72 10/06/2019 1:30 PM DELINQUENT TAX COLLECTION ASSISTANT Temperature 36.9 C (98.5 F) 07/03/2019 8:50 AM DELINQUENT TAX COLLECTION ASSISTANT Respiratory Rate 15 07/03/2019 10:00 AM DELINQUENT TAX COLLECTION ASSISTANT Oxygen Saturation 98% 07/03/2019 10:00 AM DELINQUENT TAX COLLECTION ASSISTANT Inhaled Oxygen Concentration - - Weight 98.4 kg (217 lb) 10/06/2019 1:30 PM DELINQUENT TAX COLLECTION ASSISTANT Height 182.9 cm (6') 10/06/2019 1:30 PM DELINQUENT TAX COLLECTION ASSISTANT Body Mass Index 29.43 10/06/2019 1:30 PM DELINQUENT TAX COLLECTION ASSISTANT Plan of Treatment Not on file Medical Devices Implanted Type Area Welder Experimental Device Identifier Shelf Expiration Date Model / Serial / Lot Baseplate Tibial Triathlon Tritanium 6 L77 Mm X W52 Mm Knee 4 Cruciform Peg Keel - [id number] Implanted:Qty: 1 on 10/16/2017 by Chase Borja MD at [facility] Right: Knee [employer] 07/13/2022 5536-B-600 / / [id number] Component Femoral Triathlon Pa 6 Knee Right Cruciate Retain Bead - [id number] Implanted:Qty: 1 on 10/16/2017 by Chase Borja MD at [facility] Right: Knee [employer] 08/11/2021 [id number]-F-[id number] / / [id number] Insert Tibial Triathlon X3 6 H9 Mm Knee Cruciate Substitute - [id number] Implanted:Qty: 1 on 10/16/2017 by Chase Borja MD at [facility] Right: Knee [employer] 04/29/2022 [id number] / / [id number] Component Patellar Triathlon Julia-Apatite H40 Mm Knee Bead - [id number] Implanted:Qty: 1 on 10/16/2017 by Chase Borja MD at [facility] Right: Knee [employer] 03/27/2019 [id number]-L-[id number] / / [id number] Procedures Procedure Name Priority Date/Time Associated Diagnosis Comments CTA ABDOMINAL AORTA AND BILATERAL ILIOFEMORAL RUNOFF Schedule Routine, Read Routine (OP Routine) 11/16/2023 10:49 AM CDT Atherosclerosis of teller arteries of left leg with ulceration of other part of lower leg (HCC) EGFR STAT 07/03/2019 7:25 AM DELINQUENT TAX COLLECTION ASSISTANT from Last 3 Months or Most Recently [...] Final Result * eGFR (07/03/2019 7:25 AM DELINQUENT TAX COLLECTION ASSISTANT) eGFR 104 mL/min/1.7 3 m2 PA THOMPSON Comment: Interpretive Data Reference Interval Normal >/= 90 mL/min/1.73m2 Mildly decreased* 60 - 89 mL/min/1.73m2 Mildly to moderately decreased 45 - 59 mL/min/1.73m2 Moderately to severely decreased 30 - 44 mL/min/1.73m2 Severely decreased 15 - 29 mL/min/1.73m2 Kidney Failure < 15 mL/min/1.73m2 *Relative to young adult level If -Rwandan multiply value by 1.16. Estimated glomerular filtration [...] 2016. Blood specimen (specimen) 07/03/2019 7:25 AM DELINQUENT TAX COLLECTION ASSISTANT 07/03/2019 7:29 AM DELINQUENT TAX COLLECTION ASSISTANT us Waldemar Platt MD LAB BLOOD ORDERABLES Final Result Performing Organization Address City/State/ZIP [place] Phone Number [facility] [address] [place] [address] from Last 3 Months or Most Recently Relevant to Health Maintenance Insurance UHC MEDICARE ADVANTAGE [facility] Address: [address] [address] [place] [address] UHC MEDICARE ADVANTAGE [employer] MEDICARE UHC MEDICARE ADVANTAGE [facility] Address: [address] [address] [place] [address] [employer] MEDICARE Advance Directives For more information, please contact: [phone] * Full Code (Latest Code Status on File) Date Activated Date Inactivated Comments 10/20/2017 10:04 AM 07/03/2019 5:49 AM * Full Code Date Activated Date Inactivated Comments 10/16/2017 5:27 PM 10/18/2017 4:41 PM Care Teams Stage Rigger Relationship Specialty Start Date End Date Jesus Trinh MD [address] [place] [address] PCP - General 04/12/20 Jesus Trinh MD [address] [place] [address] 04/12/20
--- OUTSIDE RECORDS SUMMARY | 2025-01-07 14:00 | XMS_ITS | Encounter Summary ---
Author Organization [facility] Address [facility] [place] [address] Care Team Providers Care Chef Name Role Phone Jesus Trinh MD Primary Care Provider [phone] Bennett Contreras MD Unavailable Theo Langston MD Unavailable [phone] Encounter Details Date Type Department Care Team (Late st Contact Info) Description 10/21/2018 Hospital Follow-up Call [facility] [place] [address] Sheryl Sevilla Social History Tobacco [...] Assessment Author Status No 10/08/2018 7:03 PM GEOTECHNICAL FIELD TECHNICIAN Activ e * RETIRED Are you blind or do you have serious difficulty seeing, even when wearing glasses? Answer Date of Assessment Author Status No 10/08/2018 7:03 PM GEOTECHNICAL FIELD TECHNICIAN Activ e * Do you have serious [...] on filedocumented in this encounter Care Teams Chef Relationship Specialty Start Date End Date Jesus Trinh MD [address] [address] PCP - General FAMILY PRACTICE 09/12/18 Bennett Contreras MD [address] [place] [address] Vascular/Operations Executive SURGERY 03/13/19 06/29/19 Theo Langston MD [address] [place] [address] Surgeon SURGERY 06/30/19 documented as of this encounter
--- OUTSIDE RECORDS SUMMARY | 2025-01-07 14:00 | XMS_ITS | CONTINUITY OF CARE DOCUMENT ---
Author Name maira rao Address Unknown Organization [facility] Office Address [address] [place] [address] Phone [phone] Care Team Providers Care Heel Caser Name Role Phone Pranav MERA, Samson Unavailable [phone] Pranav MERA, Samson Unavailable [phone] DOTTIE WALTERS MD Unavailable INSURANCE PROVIDERS Payer name Policy type / Coverage type Boyd red democrat ID [facility] [id number] Other [id number]
--- OUTSIDE RECORDS SUMMARY | 2025-01-07 14:00 | XMS_ITS | Clinical Summary ---
Author Organization [facility] Address [address] [place] [address] Care Team Providers Care Tire Curer Name Role Phone Jesus Trinh MD Primary Care Provider [phone] Theo Langston MD Unavailable [phone] Allergies Active Allergy Reactions Criticality Noted Date [...] Indications: Heart health nutrition 9 Active Multiple Vitamins-Dawes als (MULTIVITAMIN MEN 50+) TabIndications :Nutritional Support [...] 10/01/2018 Assessment & Plan (10/07/2018 5:19 AM SILK SCREEN PRINTER): Acute, POA S/p bilateral TMA with Dr [...] 10/01/2018 Assessment & Plan (10/01/2018 9:12 PM SILK SCREEN PRINTER): Chronic, stable BPs 130-140/60-70 Cont Home Meds: -Amlodipine 5mg -Losartan 50mg -nebivolol 10mg Anemia 10/01/2018 Assessment & Plan (10/07/2018 5:19 AM SILK SCREEN PRINTER): Chronic, POA Downtrending, consider transfusion per Vascular B12 and Folate WNL No evidence of CKD Etiology likely ACD vs JENAE - iron studies consistent with Anemia of chronic disease - s/p 1U pRBC 10/04 and again 10/06 - trend CBC daily Arterial insufficiency of lower extremity 2018 Assessment & Plan (10/06/2018 11:52 AM SILK SCREEN PRINTER): Chronic, POA ABIs at last admission: R ZACHARY 0.348 and L ZACHARY 0.217 suggesting severe PVD in a tibial distribution Pt to need bilateral midcalf amputations - on ASA, restart plavix - pravastatin 20mg Assessment & Plan (09/13/2018 7:09 AM SILK SCREEN PRINTER): Patient reports he has been seen by vascular surgeon and underwent ABIs,which he states were abnormal. -Vascular surgery consulted, appreciate recommendations -Obtain lipid panel: Lower extremity edema 09/13/2018 Assessment & Plan (09/13/2018 10:09 AM SILK SCREEN PRINTER): Pt with bilateral +1 pitting Lower extremity edema. Also with difficulty with urination, increased frequency with small output - Will trial one time dose of 20mg lasix IV - will trial flomax daily Resolved Problems Problem Noted Date Diagnosed Date Resolved Date Fever 10/05/2018 10/18/2018 Assessment & Plan (10/06/2018 11:53 AM SILK SCREEN PRINTER): Acute x2 < started less than 48 [...] 10/18/2018 Assessment & Plan (10/07/2018 8:16 AM SILK SCREEN PRINTER): Acute, improved - CXR negative for acute process - Cough suppressant PRN - IS started and Reencouraged to USe - with fever, cough (non productive), crackles on exam, concern for developing pneumonia vs post op inflammatory fever with atelectasis Peripheral vascular disease of lower extremity with ulceration ([facility]) 10/01/2018 10/18/2018 Gross hematuria 09/19/2018 10/18/2018 Cellulitis 09/12/2018 10/18/2018 Assessment & Plan (09/13/2018 7:16 AM SILK SCREEN PRINTER): Patient w/ continued erythema bilateral feet. Failed [...] not improving -Pain control with gabapentin, Tylenol, [place], and Percocet Family History Medical History Relation [...] Comments Blood Pressure 122/64 10/24/2019 8:01 AM SILK SCREEN PRINTER Pulse 60 10/24/2019 8:01 AM SILK SCREEN PRINTER Temperature 35.6 C (96.1 F) 10/24/2019 8:01 AM SILK SCREEN PRINTER Respiratory Rate 18 10/24/2019 8:01 AM SILK SCREEN PRINTER Oxygen Saturation 97% 10/24/2019 8:01 AM SILK SCREEN PRINTER Inhaled Oxygen Concentration - - Weight 98.7 kg (217 lb 9.5 oz) 03/17/2019 9:29 A M CDT Height 180.3 cm (5' 11) 03/17/2019 9:29 AM CDT Body Mass Index [...] Comments LIPID PANEL STAT 09/12/2018 1:31 PM SILK SCREEN PRINTER from Last 3 Months or Most Recently Relevant to Health Maintenance Results * (ABNORMAL) LIPID PANEL (09/12/2018 1:31 PM SILK SCREEN PRINTER) CHOLESTEROL 101 <200 MG/DL 09/12/2018 4:51 PM SILK SCREEN PRINTER [facility] TRIGLYCERIDES 36 <150 MG/DL 09/12/2018 4:51 PM [facility] HDL 37(L) >40.0 MG/DL 09/12/2018 4:51 PM [facility] LDL (CALCULATED) 57 <100 MG/DL 09/12/19 19 4:51 PM [facility] NON HDL CHOLESTEROL 64 <130 MG/DL 09/12 4:51 PM [facility] CHOL/HDL RATIO 2.7 0.0 - 4.5 09/12/2018 4:51 PM [facility] VLDL CALCULATION 7 5 - 55 MG/DL 09/12/2018 4:51 PM [facility] LIPID INTERPRETATION 09/12/2018 4:51 PM [facility] Comment: [facility] CONCENSUS REPORT RECOMMENDATIONS: ADULT CHILD LOW RISK: CHOLESTEROL <200 <170 TRIGLYCERIDE <150 --- HDL >=60 --- LDL <100 <110 BORDERLINE: CHOLESTEROL 200-239 170-199 TRIGLYCERIDE 150-199 --- HDL 40-59 --- LDL 100-159 110-129 HIGH RISK: CHOLESTEROL >=240 >=200 TRIGLYCERIDE >=200 --- HDL <40 --- LDL >=160 >=130 09/12/2018 1:31 PM SILK SCREEN PRINTER us Cuate Sherwood MD LABORATORY Final Result [facility] [address] [place] [address], from Last 3 Months or Most Recently Relevant to Health Maintenance Insurance MED REPLACE [facility] MEDICARE MED REPLACE [facility] MEDICARE Advance Directives Documents on File Type Date Recorded Patient Programmer Analyst Consultant Expl anation Advance Directives and Living Will [...] 5:04 PM 09/20/2018 10:42 AM Care Teams Tire Curer Relationship Specialty Start Date End Date Jesus Trinh MD [address] [address] PCP - General FAMILY PRACTICE 09/12/18 Theo Langston MD [address] [address] Surgeon SURGERY 06/30/19
--- OUTSIDE RECORDS SUMMARY | 2025-01-07 14:00 | XMS_ITS | Clinical Summary ---
Author Organization [facility] [address] Address [address] [place] [address] Phone Care Team Providers Care Beck Tender Name Role Phone Jesus Trinh MD [...] (06/26/2019): Added automatically from request for surgery [id number] Arthralgia of hip 08/25/2016 Overview (12/01/2016): Hip [...] Medical Left total knee replacement 09-29-13; Comments: [facility] 10/13/2014 - Hx Other Medical Left total knee replacement on 09-29-14.; Comments: [facility] 11/17/2014 - Hx Other Medical 09-04-16 80 mg. D epo-Medrol/2 cc marcaine L knee.; Comments: [facility] 09/05/2016 - Hx Other Medical 11-27-16 Right kn ee Synvisc injection.; Comments: 11-27-16 [facility] 11/28/2016 - Hypertension Family History Medical [...] on file Legal Sex Male 11:01 AM PROOFSHEET CORRECTOR Gender Identity Male 09/17/2023 1:32 PM PROOFSHEET CORRECTOR Sexual Orientation Straight 09/17/2023 1: 32 PM PROOFSHEET CORRECTOR Obstetrics History Last Filed Vital Signs Vital Sign Reading Time Taken Comments Blood Pressure 120/68 10/06/2019 1:30 PM PROOFSHEET CORRECTOR Pulse 72 10/06/2019 1:30 PM PROOFSHEET CORRECTOR Temperature 36.9 C (98.5 F) 07/03/2019 8:50 AM PROOFSHEET CORRECTOR Respiratory Rate 15 07/03/2019 10:00 AM PROOFSHEET CORRECTOR Oxygen Saturation 98% 07/03/2019 10:00 AM PROOFSHEET CORRECTOR Inhaled Oxygen Concentration - - Weight 98.4 kg (217 lb) 10/06/2019 1:30 PM PROOFSHEET CORRECTOR Height 182.9 cm (6') 10/06/2019 1:30 PM PROOFSHEET CORRECTOR Body Mass Index 29.43 10/06/2019 1:30 PM PROOFSHEET CORRECTOR Plan of Treatment Health Maintenance Due Date [...] , 09/23/2018 Medical Devices Implanted Type Area Internal Control Manager Device Identifier Shelf Expiration Date Model / Serial / Lot Baseplate Tibial Triathlon Tritanium 6 L77 Mm X W52 Mm Knee 4 Cruciform Peg Keel - [id number] Implanted:Qty: 1 on 10/16/2017 by Chase Borja MD at [facility] Right: Knee [facility] 07/13/2022 5536-B-600 / / [id number] Component Femoral Triathlon Pa 6 Knee Right Cruciate Retain Bead - [id number] Implanted:Qty: 1 on 10/16/2017 by Chase Borja MD at [facility] Right: Knee [facility] 08/11/2021 [id number]-F-602 / / [id number] Insert Tibial Triathlon X3 6 H9 Mm Knee Cruciate Substitute - [id number] Implanted:Qty: 1 on 10/16/2017 by Chase Borja MD at [facility] Right: Knee [facility] 04/29/2022 [id number] / / [id number] Component Patellar Triathlon Julia-Apatite H40 Mm Knee Bead - [id number] Implanted:Qty: 1 on 10/16/2017 by Chase Borja MD at [facility] Right: Knee [facility] 03/27/2019 [id number]-L-401 / / [id number] Procedures Procedure Name Priority Date/Time Associated Diagnosis Comments CTA ABDOMINAL AORTA AND BILATERAL ILIOFEMORAL RUNOFF Schedule Routine, Read Routine (OP Routine) 11/16/2023 10:49 AM CDT 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) EGFR STAT 07/03/2019 7:25 AM PROOFSHEET CORRECTOR from Last 3 Months or Most Recently [...] Schneider M.D., MPH us Padmini Heather Strope RETENTION SPECIALIST IMG CT PROCEDURES Final Result * eGFR (07/03/2019 7:25 AM PROOFSHEET CORRECTOR) eGFR 104 mL/min/1.7 3 m2 PA [facility] Comment: Interpretive Data Reference Interval Normal >/= 90 mL/min/1.73m2 Mildly decreased* 60 - 89 mL/min/1.73m2 Mildly to moderately decreased 45 - 59 mL/min/1.73m2 Moderately to severely decreased 30 - 44 mL/min/1.73m2 Severely decreased 15 - 29 mL/min/1.73m2 Kidney Failure < 15 mL/min/1.73m2 *Relative to young adult level If -Ghanaian multiply value by 1.16. Estimated glomerular filtration [...] 2016. Blood specimen (specimen) 07/03/2019 7:25 AM PROOFSHEET CORRECTOR 07/03/2019 7:29 AM PROOFSHEET CORRECTOR Waldemar Platt MD LAB BLOOD ORDERABLES Final Result [facility] [id number] Department [place] [address] from Last 3 Months or Most Recently Relevant to Health Maintenance Insurance [facility] MEDICARE ADVANTAGE UHC MEDICARE ADVANTAGE [facility] MEDICARE UHC MEDICARE ADVANTAGE [facility] MEDICARE [facility]IC[facility] Address: [address] [place] [address] Advance Directives For more information, please contact: [phone] * Full Code (Latest Code Status on File) Date Activated Date Inactivated Comments 10/20/2017 10:04 AM 07/03/2019 5:49 AM * Full Code Date Activated Date Inactivated Comments 10/16/2017 5:27 PM 10/18/2017 4:41 PM Care Teams Beck Tender Relationship Specialty Start Date End Date Jesus Trinh MD [address] [place] [address] PCP - General 04/12/20 Jesus Trinh MD [address] [place] [address] 04/12/20
== END 2025-01-07 13:50 | disposition home or self-care (01) ==
LOC: ANHAUDASC 13:50
PROVIDERS: PCP Family Medicine Adolescent Medicine; Visit Provider Family Medicine Adolescent Medicine
DX: H91.13 Presbycusis, bilateral (principal)
CPT/HCPCS: 92557; 92567

== ENCOUNTER 2025-02-25 10:15 | Outpatient (CLI) | payer MEDICARE, SELFPAY ==
--- NOTE | 2025-02-25 10:26 | ECG_ITS ---
Test Date: 2025-02-25 10:35:49 Measurements Intervals [place] Rate: 60 P: 60 TX: 224 QRS: 68 QRSD: 153 T: 30 QT: 408 QTc: 411 Interpretive Statements SINUS RHYTHM WITH FIRST DEGREE AV BLOCK RIGHT BUNDLE BRANCH BLOCK [120+ ms QRS DURATION, UPRIGHT V1, 40+ ms S IN I/aVL/V4/V5/V6] ABNORMAL ELECTROCARDIOGRAM No previous ECG available for comparison Electronically Signed On 02-25-2025 12:54:14 CDT by Daniel Roman M.D.
--- OUTSIDE RECORDS SUMMARY | 2025-02-25 10:36 | XMS_ITS | Clinical Summary ---
Author Organization [facility] [address] Address [address] [place] [address] Phone Care Team Providers Care Editor Greeting Card Name Role Phone Jesus Trinh MD Primary [...] (06/26/2019): Added automatically from request for surgery [id number] Arthralgia of hip 08/25/2016 Overview (12/01/2016): Hip [...] Medical Left total knee replacement 09-29-13; Comments: [facility] 10/13/2014 - Hx Other Medical Left total knee replacement on 09-29-14.; Comments: [facility] 11/17/2014 - Hx Other Medical 09-04-16 80 mg. D epo-Medrol/2 cc marcaine L knee.; Comments: [facility] 09/05/2016 - Hx Other Medical 11-27-16 Right kn ee Synvisc injection.; Comments: 11-27-[address] 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 Gender Identity Male 09/17/2023 1:32 PM SUPERVISOR [employer] Sexual Orientation Straight 09/17/2023 1: 32 PM SUPERVIS[employer] Obstetrics History Last Filed Vital Signs Vital Sign Reading Time Taken Comments Blood Pressure 120/68 10/06/2019 1:30 PM SUPERVISOR [employer] Pulse 72 10/06/2019 1:30 PM SUPERVISOR [employer] Temperature 36.9 C (98.5 F) 07/03/2019 8:50 AM SUPERVISOR [employer] Respiratory Rate 15 07/03/2019 10:00 AM SUPERVISOR [employer] Oxygen Saturation 98% 07/03/2019 10:00 AM SUPERVISOR [employer] Inhaled Oxygen Concentration - - Weight 98.4 kg (217 lb) 10/06/2019 1:30 PM SUPER[employer] Height 182.9 cm (6') 10/06/2019 1:30 PM SUPERVISOR [employer] Body Mass Index 29.43 10/06/2019 1:30 PM SUPERVISOR [employer] Plan of Treatment Health Maintenance Due Date [...] 09/12/2018 eGFR 07/03/2020 07/03/2019, 10/02/2017 Influenza Vaccine (#1) 2025 Abdominal Aortic Aneurysm (AAA) Screen Completed , 09/23/2018 Medical Devices Implanted Type Area School Community Relations Coordinator Device Identifier Shelf Expiration Date Model / Serial / Lot Baseplate Tibial Triathlon Tritanium 6 L77 Mm X W52 Mm Knee 4 Cruciform Peg Keel - [id number] Implanted:Qty: 1 on 10/16/2017 by Chase Borja MD at [facility] Right: Knee [employer] 07/13/2022 5536-B-600 / / [id number] Component Femoral Triathlon Pa 6 Knee Right Cruciate Retain Bead - [id number] Implanted:Qty: 1 on 10/16/2017 by Chase Borja MD at [facility] Right: Knee [employer] 08/11/2021 5517-F-602 / / [id number] Insert Tibial Triathlon X3 6 H9 Mm Knee Cruciate Substitute - [id number] Implanted:Qty: 1 on 10/16/2017 by Chase Borja MD at [facility] Right: Knee [employer] 04/29/2022 [id number] / / [id number] Component Patellar Triathlon Julia-Apatite H40 Mm Knee Bead - [id number] Implanted:Qty: 1 on 10/16/2017 by Chase Borja MD at [facility] Right: Knee [employer] 03/27/2019 5554-L-401 / / [id number] Procedures Procedure Name Priority Date/Time Associated Diagnosis Comments CTA ABDOMINAL AORTA AND BILATERAL ILIOFEMORAL RUNOFF Schedule Routine, Read Routine (OP Routine) 11/16/2023 10:49 AM CDT 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) EGFR STAT 07/03/2019 7:25 AM SUPERVISOR [employer] from Last 3 Months or Most Recently [...] Schneider M.D., MPH us [facility] MEDICAL DIRECTOR IMG CT PROCEDURES Final Result * eGFR (07/03/2019 7:25 AM SUPERVISOR [employer]) eGFR 104 mL/min/1.7 3 m2 PA THOMPSON Comment: Interpretive Data Reference Interval Normal >/= 90 mL/min/1.73m2 Mildly decreased* 60 - 89 mL/min/1.73m2 Mildly to moderately decreased 45 - 59 mL/min/1.73m2 Moderately to severely decreased 30 - 44 mL/min/1.73m2 Severely decreased 15 - 29 mL/min/1.73m2 Kidney Failure < 15 mL/min/1.73m2 *Relative to young adult level If -Congolese multiply value by 1.16. Estimated glomerular filtration [...] 2016. Blood specimen (specimen) 07/03/2019 7:25 AM SUPERVIS[employer] 07/03/2019 7:29 AM SUPERVISOR [employer] Waldemar Platt MD LAB BLOOD ORDERABLES Final Result [facility] [id number] Department [place] [address] from Last 3 Months or Most Recently Relevant to Health Maintenance Insurance [facility] MEDICARE AD[facility]ANTAGE [facility] MEDICARE Address: [address] [address] [place] [address] UHC MEDICARE ADVANTAGE [facility] MEDICARE Address: [address] [address] [place] [address] [facility] UHC MEDICARE AD[facility]ANTAGE [facility] Advance Directives For more information, please contact: [phone] * Full Code (Latest Code Status on File) Date Activated Date Inactivated Comments 10/20/2017 10:04 AM 07/03/2019 5:49 AM * Full Code Date Activated Date Inactivated Comments 10/16/2017 5:27 PM 10/18/2017 4:41 PM Care Teams Editor Greeting Card Relationship Specialty Start Date End Date Jesus Trinh MD [address] [place] [address] PCP - General 04/12/20 Jesus Trinh MD [address] [place] [address] 04/12/20
--- OUTSIDE RECORDS SUMMARY | 2025-02-25 10:36 | XMS_ITS | Clinical Summary ---
Author Organization [facility] Address [address] [place] [address] Care Team Providers Care Card Processing Clerk Name Role Phone Jesus Trinh MD Primary Care Provider [phone] Theo Langston MD Unavailable [phone] Allergies Active Allergy Reactions Criticality Noted Date [...] Indications: Heart health nutrition 9 Active Multiple Vitamins-Isabella als (MULTIVITAMIN MEN 50+) TabIndications :Nutritional Support [...] 10/01/2018 Assessment & Plan (10/07/2018 5:19 AM TRIPLE AIR VALVE TESTER): Acute, POA S/p bilateral TMA with Dr [...] 10/01/2018 Assessment & Plan (10/01/2018 9:12 PM TRIPLE AIR VALVE TESTER): Chronic, stable BPs 130-140/60-70 Cont Home Meds: -Amlodipine 5mg -Losartan 50mg -nebivolol 10mg Anemia 10/01/2018 Assessment & Plan (10/07/2018 5:19 AM TRIPLE AIR VALVE TESTER): Chronic, POA Downtrending, consider transfusion per Vascular B12 and Folate WNL No evidence of CKD Etiology likely ACD vs JENAE - iron studies consistent with Anemia of chronic disease - s/p 1U pRBC 10/04 and again 10/06 - trend CBC daily Arterial insufficiency of lower extremity 2018 Assessment & Plan (10/06/2018 11:52 AM TRIPLE AIR VALVE TESTER): Chronic, POA ABIs at last admission: R ZACHARY 0.348 and L ZACHARY 0.217 suggesting severe PVD in a tibial distribution Pt to need bilateral midcalf amputations - on ASA, restart plavix - pravastatin 20mg Assessment & Plan (09/13/2018 7:09 AM TRIPLE AIR VALVE TESTER): Patient reports he has been seen by vascular surgeon and underwent ABIs,which he states were abnormal. -Vascular surgery consulted, appreciate recommendations -Obtain lipid panel: Lower extremity edema 09/13/2018 Assessment & Plan (09/13/2018 10:09 AM TRIPLE AIR VALVE TESTER): Pt with bilateral +1 pitting Lower extremity edema. Also with difficulty with urination, increased frequency with small output - Will trial one time dose of 20mg lasix IV - will trial flomax daily Resolved Problems Problem Noted Date Diagnosed Date Resolved Date Fever 10/05/2018 10/18/2018 Assessment & Plan (10/06/2018 11:53 AM TRIPLE AIR VALVE TESTER): Acute x2 < started less than 48 [...] 10/18/2018 Assessment & Plan (10/07/2018 8:16 AM TRIPLE AIR VALVE TESTER): Acute, improved - CXR negative for acute process - Cough suppressant PRN - IS started and Reencouraged to USe - with fever, cough (non productive), crackles on exam, concern for developing pneumonia vs post op inflammatory fever with atelectasis Peripheral vascular disease of lower extremity with ulceration ([facility]) 10/01/2018 10/18/2018 Gross hematuria 09/19/2018 10/18/2018 Cellulitis 09/12/2018 10/18/2018 Assessment & Plan (09/13/2018 7:16 AM TRIPLE AIR VALVE TESTER): Patient w/ continued erythema bilateral feet. Failed [...] not improving -Pain control with gabapentin, Tylenol, Florence, and Percocet Family History Medical History Relation [...] Comments Blood Pressure 122/64 10/24/2019 8:01 AM TRIPLE AIR VALVE TESTER Pulse 60 10/24/2019 8:01 AM TRIPLE AIR VALVE TESTER Temperature 35.6 C (96.1 F) 10/24/2019 8:01 AM TRIPLE AIR VALVE TESTER Respiratory Rate 18 10/24/2019 8:01 AM TRIPLE AIR VALVE TESTER Oxygen Saturation 97% 10/24/2019 8:01 AM TRIPLE AIR VALVE TESTER Inhaled Oxygen Concentration - - Weight 98.7 [...] Comments LIPID PANEL STAT 09/12/2018 1:31 PM TRIPLE AIR VALVE TESTER from Last 3 Months or Most Recently Relevant to Health Maintenance Results * (ABNORMAL) LIPID PANEL (09/12/2018 1:31 PM TRIPLE AIR VALVE TESTER) CHOLESTEROL 101 <200 MG/DL 09/12/2018 4:51 PM TRIPLE AIR VALVE TESTER [facility] TRIGLYCERIDES 36 <150 MG/DL 09/12/2018 4:51 PM [facility] HDL 37(L) >40.0 MG/DL 09/12/2018 4:51 PM [facility] LDL (CALCULATED) 57 <100 MG/DL 09/12/19 19 4:51 PM [facility] NON HDL CHOLESTEROL 64 <130 MG/DL 09/12 4:51 PM [facility] CHOL/HDL RATIO 2.7 0.0 - 4.5 09/12/2018 4:51 PM [facility] VLDL CALCULATION 7 5 - 55 MG/DL 09/12/2018 4:51 PM [facility] LIPID INTERPRETATION 09/12/2018 4:51 PM [facility] Comment: [facility] CONCENSUS REPORT RECOMMENDATIONS: ADULT CHILD LOW RISK: CHOLESTEROL <200 <170 TRIGLYCERIDE <150 --- HDL >=60 --- LDL <100 <110 BORDERLINE: CHOLESTEROL 200-239 170-199 TRIGLYCERIDE 150-199 --- HDL 40-59 --- LDL 100-159 110-129 HIGH RISK: CHOLESTEROL >=240 >=200 TRIGLYCERIDE >=200 --- HDL <40 --- LDL >=160 >=130 09/12/2018 1:31 PM TRIPLE AIR VALVE TESTER us Cuate Sherwood MD LABORATORY Final Result [facility] [address] [place] [address], from Last 3 Months or Most Recently Relevant to Health Maintenance Insurance [facility] MEDICARE [facility] MEDICARE Advance Directives Documents on File Type Date Recorded Patient Provider Relations Advocate Expl anation Advance Directives and Living Will [...] 5:04 PM 09/20/2018 10:42 AM Care Teams Card Processing Clerk Relationship Specialty Start Date End Date Jesus Trinh MD [address] [address] PCP - General FAMILY PRACTICE 09/12/18 Theo Langston MD [address] [address] Surgeon SURGERY 06/30/19
--- OUTSIDE RECORDS SUMMARY | 2025-02-25 10:36 | XMS_ITS | Encounter Summary ---
Author Organization [facility] Address [facility]ly [facility] [place] [address] Care Team Providers Care Director Of Assessing Name Role Phone Jesus Trinh MD Primary Care Provider [phone] Bennett Contreras MD Unavailable Theo Langston MD Unavailable [phone] Encounter Details Date Type Department Care Team (Late st Contact Info) Description 10/21/2018 Hospital Follow-up Call [facility] [place] [address] Sheryl Sevilla Social History Tobacco [...] Assessment Author Status No 10/08/2018 7:03 PM VICE PRESIDENT AND PORTFOLIO MANAGER Activ e * RETIRED Are you blind or do you have serious difficulty seeing, even when wearing glasses? Answer Date of Assessment Author Status No 10/08/2018 7:03 PM VICE PRESIDENT AND PORTFOLIO MANAGER Activ e * Do you have serious [...] on filedocumented in this encounter Care Teams Director Of Assessing Relationship Specialty Start Date End Date Jesus Trinh MD [address] [address] PCP - General FAMILY PRACTICE 09/12/18 Bennett Contreras MD [address] [place] [address] Vascular/Inspector Experimental Assembly SURGERY 03/13/19 06/29/19 Theo Langston MD [address] [place] [address] Surgeon SURGERY 06/30/19 documented as of this encounter
--- OUTSIDE RECORDS SUMMARY | 2025-02-25 10:36 | XMS_ITS | Referral Summary ---
Author Organization [facility] [address] Address [address] [place] [address] Phone Care Team Providers Care Chief Clerk Shelter Name Role Phone Jesus Trinh MD Primary [...] (06/26/2019): Added automatically from request for surgery [id number] Arthralgia of hip 08/25/2016 Overview (12/01/2016): Hip [...] on file Legal Sex Male 11:01 AM HOUSEKEEPING DEPARTMENT WORKER Gender Identity Male 09/17/2023 1:32 PM HOUSEKEEPING DEPARTMENT WORKER Sexual Orientation Straight 09/17/2023 1: 32 PM HOUSEKEEPING DEPARTMENT WORKER Last Filed Vital Signs Vital Sign Reading Time Taken Comments Blood Pressure 120/68 10/06/2019 1:30 PM HOUSEKEEPING DEPARTMENT WORKER Pulse 72 10/06/2019 1:30 PM HOUSEKEEPING DEPARTMENT WORKER Temperature 36.9 C (98.5 F) 07/03/2019 8:50 AM HOUSEKEEPING DEPARTMENT WORKER Respiratory Rate 15 07/03/2019 10:00 AM HOUSEKEEPING DEPARTMENT WORKER Oxygen Saturation 98% 07/03/2019 10:00 AM HOUSEKEEPING DEPARTMENT WORKER Inhaled Oxygen Concentration - - Weight 98.4 kg (217 lb) 10/06/2019 1:30 PM HOUSEKEEPING DEPARTMENT WORKER Height 182.9 cm (6') 10/06/2019 1:30 PM HOUSEKEEPING DEPARTMENT WORKER Body Mass Index 29.43 10/06/2019 1:30 PM HOUSEKEEPING DEPARTMENT WORKER Plan of Treatment Not on file Medical Devices Implanted Type Area Heavy Equipment Operator Apprentice Device Identifier Shelf Expiration Date Model / Serial / Lot Baseplate Tibial Triathlon Tritanium 6 L77 Mm X W52 Mm Knee 4 Cruciform Peg Keel - [id number] Implanted:Qty: 1 on 10/16/2017 by Chase Borja MD at [facility] Right: Knee [employer] 07/13/2022 5536-B-600 / / [id number] Component Femoral Triathlon Pa 6 Knee Right Cruciate Retain Bead - [id number] Implanted:Qty: 1 on 10/16/2017 by Chase Borja MD at [facility] Right: Knee [employer] 08/11/2021 5517-F-602 / / [id number] Insert Tibial Triathlon X3 6 H9 Mm Knee Cruciate Substitute - [id number] Implanted:Qty: 1 on 10/16/2017 by Chase Borja MD at [facility] Right: Knee [employer] 04/29/2022 [id number] / / [id number] Component Patellar Triathlon Julia-Apatite H40 Mm Knee Bead - [id number] Implanted:Qty: 1 on 10/16/2017 by Chase Borja MD at [facility] Right: Knee [employer] 03/27/2019 5554-L-401 / / [id number] Procedures Procedure Name Priority Date/Time Associated Diagnosis Comments CTA ABDOMINAL AORTA AND BILATERAL ILIOFEMORAL RUNOFF Schedule Routine, Read Routine (OP Routine) 11/16/2023 10:49 AM CDT 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 Estimated glomerular filtration [...] 2016. Blood specimen (specimen) 07/03/2019 7:25 AM HOUSEKEEPING DEPARTMENT WORKER 07/03/2019 7:29 AM HOUSEKEEPING DEPARTMENT WORKER us Waldemar Platt MD LAB BLOOD ORDERABLES Final Result Performing Organization Address City/State/ZIP Co [place] Phone Number [facility] [address] Department [place] [address] from Last 3 Months or Most Recently Relevant to Health Maintenance Insurance UHC MEDICARE ADVANTAGE [facility] MEDICARE Address: [facility] [address] [place] [address] UHC MEDICARE ADVANTAGE [employer] MEDICARE UHC MEDICARE ADVANTAGE [facility] MEDICARE Address: [address] [address] [place] [address] [employer] MEDICARE Advance Directives For more information, please contact: [phone] * Full Code (Latest Code Status on File) Date Activated Date Inactivated Comments 10/20/2017 10:04 AM 07/03/2019 5:49 AM * Full Code Date Activated Date Inactivated Comments 10/16/2017 5:27 PM 10/18/2017 4:41 PM Care Teams Chief Clerk Shelter Relationship Specialty Start Date End Date Jesus Trinh MD [address] [place] [address] PCP - General 04/12/20 Jesus Trinh MD [address] [place] [address] 04/12/20
== END 2025-02-25 10:16 | disposition home or self-care (01) ==
LOC: ANHSURGERY 10:21
PROVIDERS: PCP Family Medicine Adolescent Medicine; Visit Provider Urology
DX: E78.5 Hyperlipidemia, unspecified (principal); I10 Essential (primary) hypertension
CPT/HCPCS: 93005

== ENCOUNTER 2025-02-26 01:30 | Day surgery (SDC) | payer MEDICARE, SELFPAY ==
[2025-02-23 15:49] VITALS: BMI 33.4
--- NOTE | 2025-02-23 16:11 | PC.NURSE ---
Report to the Outpatient Waiting Room, entrance under the green pavilion located off [facility], at time __0800 on date __02/26/25 . Planned Procedure Time: 1000am .? Time changes happen often and if your time is changed the preop area will call you the afternoon before. - You and your visitor will be asked to self-screen and do not enter if you have any COVID symptoms. Please call surgeon if you need to reschedule. - A mask is optional within the hospital at this time. Patients may have clear liquids (water, carbonated beverages, clear teas, apple juice) until 3 hours prior to surgery with a maximum of 20 ounces. - No food from midnight until time of surgery and no smoking, or chewing tobacco (or any form of nicotine). No chewing gum, candy or mints. (0700am) Take only the following medications with a SIP of water on the morning of surgery: Acyclovoir, Amlodipine, Gabapentin Nebivolol & Tylenol if needed, DO NOT STOP ANY OF YOUR OTHER PRESCRIPTION MEDICATIONS PRIOR TO SURGERY EXCEPT THE FOLLOWING Hold all vitamins and supplements for 3 days per anesthesiologist. Medications to discontinue per physician Meloxicam, NSAIDS, ASPIRIN, and any Supplements [address] Gardner Date to take last dose 02/18/25 Please no make-up, nail slovenian, hairspray, perfume, deodorant, or body powder the day of surgery.? No jewelry (including any body piercings) or valuables the day of surgery, leave them at home.? Please take a shower or bath the night before, or the morning of, surgery with an antibacterial soap.? Wear comfortable, loose fitting clothing.? - Jewelry must be removed prior to entering the operating room.? Rings and piercings that are not removed may be cut off. - The hospital will not accept responsibility for valuables.? - Please leave all valuables, including medications, at home the day of surgery. If you are going home after surgery, a licensed front load trash truck driver must drive you home.? - NO public transportation without another adult if you receive anesthesia. - We recommend that an adult stay with you for 24 hours following discharge. - We also recommend that you do not drive, make important decision, drink alcoholic beverages, or take any drugs that were not prescribed by your health care provider for at least 24 hours after your discharge time. Follow any additional instructions given to you from your surgeon. Telephone instructions given to __Patient & and asked if any additional questions and then verbalized understanding. Patient advised to call surgeon office or pre surgery nurse liaison [phone] if any additional questions.
--- OUTSIDE RECORDS SUMMARY | 2025-02-26 01:32 | XMS_ITS | Referral Summary ---
Author Organization [facility] [address] Address [address] [place] [address] Phone Care Team Providers Care Chip Bin Operator Name Role Phone Jesus Trinh MD [...] (06/26/2019): Added automatically from request for surgery [id number] Arthralgia of hip 08/25/2016 Overview (12/01/2016): Hip [...] on file Legal Sex Male 11:01 AM CLERICAL SUPPORT Gender Identity Male 09/17/2023 1:32 PM CLERICAL SUPPORT Sexual Orientation Straight 09/17/2023 1: 32 PM CLERICAL SUPPORT Last Filed Vital Signs Vital Sign Reading Time Taken Comments Blood Pressure 120/68 10/06/2019 1:30 PM CLERICAL SUPPORT Pulse 72 10/06/2019 1:30 PM CLERICAL SUPPORT Temperature 36.9 C (98.5 F) 07/03/2019 8:50 AM CLERICAL SUPPORT Respiratory Rate 15 07/03/2019 10:00 AM CLERICAL SUPPORT Oxygen Saturation 98% 07/03/2019 10:00 AM CLERICAL SUPPORT Inhaled Oxygen Concentration - - Weight 98.4 kg (217 lb) 10/06/2019 1:30 PM CLERICAL SUPPORT Height 182.9 cm (6') 10/06/2019 1:30 PM CLERICAL SUPPORT Body Mass Index 29.43 10/06/2019 1:30 PM CLERICAL SUPPORT Plan of Treatment Not on file Medical Devices Implanted Type Area Animal Biologist Device Identifier Shelf Expiration Date Model / Serial / Lot Baseplate Tibial Triathlon Tritanium 6 L77 Mm X W52 Mm Knee 4 Cruciform Peg Keel - [id number] Implanted:Qty: 1 on 10/16/2017 by Chase Borja MD at [facility] Right: Knee [employer] 07/13/2022 5536-B-600 / / [id number] Component Femoral Triathlon Pa 6 Knee Right Cruciate Retain Bead - [id number] Implanted:Qty: 1 on 10/16/2017 by Chase Borja MD at [facility] Right: Knee [employer] 08/11/2021 5517-F-602 / / [id number] Insert Tibial Triathlon X3 6 H9 Mm Knee Cruciate Substitute - [id number] Implanted:Qty: 1 on 10/16/2017 by Chase Borja MD at [facility] Right: Knee [employer] 04/29/2022 [id number] / / [id number] Component Patellar Triathlon Julia-Apatite H40 Mm Knee Bead - [id number] Implanted:Qty: 1 on 10/16/2017 by Chase Borja MD at [facility] Right: Knee [employer] 03/27/2019 5554-L-401 / / [id number] Procedures Procedure Name Priority Date/Time Associated Diagnosis Comments CTA ABDOMINAL AORTA AND BILATERAL ILIOFEMORAL RUNOFF Schedule Routine, Read Routine (OP Routine) 11/16/2023 10:49 AM CDT Atherosclerosis of [place] arteries of left leg with ulceration of other part of lower leg (HCC) EGFR STAT 07/03/2019 7:25 AM CLERICAL SUPPORT from Last 3 Months or Most Recently [...] Final Result * eGFR (07/03/2019 7:25 AM CLERICAL SUPPORT) eGFR 104 mL/min/1.7 3 m2 PA TH[facility]ON Comment: Interpretive Data Reference Interval Normal >/= 90 mL/min/1.73m2 Mildly decreased* 60 - 89 mL/min/1.73m2 Mildly to moderately decreased 45 - 59 mL/min/1.73m2 Moderately to severely decreased 30 - 44 mL/min/1.73m2 Severely decreased 15 - 29 mL/min/1.73m2 Kidney Failure < 15 mL/min/1.73m2 *Relative to young adult level If -Tanzanian multiply value by 1.16. Estimated glomerular filtration [...] 2016. Blood specimen (specimen) 07/03/2019 7:25 AM CLERICAL SUPPORT 07/03/2019 7:29 AM CLERICAL SUPPORT us Waldemar Platt MD LAB BLOOD ORDERABLES Final Result Performing Organization Address City/State/ZIP Co [place] Phone Number [facility] [address] [place] [address] from Last 3 Months or Most Recently Relevant to Health Maintenance Insurance UHC MEDICARE [facility] MEDICARE Address: [facility] [address] [place] [address] UHC MEDICARE ADVANTAGE [employer] MEDICARE UHC MEDICARE [facility] MEDICARE Address: [address] [address] [place] [address] [employer] MEDICARE Advance Directives For more information, please contact: [phone] * Full Code (Latest Code Status on File) Date Activated Date Inactivated Comments 10/20/2017 10:04 AM 07/03/2019 5:49 AM * Full Code Date Activated Date Inactivated Comments 10/16/2017 5:27 PM 10/18/2017 4:41 PM Care Teams Chip Bin Operator Relationship Specialty Start Date End Date Jesus Trinh MD [address] [place] [address] PCP - General 04/12/20 Jesus Trinh MD [address] [place] [address] 04/12/20
--- OUTSIDE RECORDS SUMMARY | 2025-02-26 01:32 | XMS_ITS | Clinical Summary ---
Author Organization [facility] [address] Address [address] [place] [address] Phone Care Team Providers Care Air Brush Operator Name Role Phone Jesus Trinh MD [...] (06/26/2019): Added automatically from request for surgery [id number] Arthralgia of hip 08/25/2016 Overview (12/01/2016): Hip [...] Medical Left total knee replacement 09-29-13; Comments: [facility] 10/13/2014 - Hx Other Medical Left total knee replacement on 09-29-14.; Comments: [facility] 11/17/2014 - Hx Other Medical 09-04-16 80 mg. D epo-Medrol/2 cc marcaine L knee.; Comments: [facility] 09/05/2016 - Hx Other Medical 11-27-16 Right kn ee Synvisc injection.; Comments: 11-27-16 [facility] 11/28/2016 - Hypertension Family History Medical History [...] on file Legal Sex Male 11:01 AM GLASS BEVELER Gender Identity Male 09/17/2023 1:32 PM GLASS BEVELER Sexual Orientation Straight 09/17/2023 1: 32 PM GLASS BEVELER Obstetrics History Last Filed Vital Signs Vital Sign Reading Time Taken Comments Blood Pressure 120/68 10/06/2019 1:30 PM GLASS BEVELER Pulse 72 10/06/2019 1:30 PM GLASS BEVELER Temperature 36.9 C (98.5 F) 07/03/2019 8:50 AM GLASS BEVELER Respiratory Rate 15 07/03/2019 10:00 AM GLASS BEVELER Oxygen Saturation 98% 07/03/2019 10:00 AM GLASS BEVELER Inhaled Oxygen Concentration - - Weight 98.4 kg (217 lb) 10/06/2019 1:30 PM GLASS BEVELER Height 182.9 cm (6') 10/06/2019 1:30 PM GLASS BEVELER Body Mass Index 29.43 10/06/2019 1:30 PM GLASS BEVELER Plan of Treatment Health Maintenance Due Date [...] , 09/23/2018 Medical Devices Implanted Type Area Environmental Engineer Device Identifier Shelf Expiration Date Model / Serial / Lot Baseplate Tibial Triathlon Tritanium 6 L77 Mm X W52 Mm Knee 4 Cruciform Peg Keel - [id number] Implanted:Qty: 1 on 10/16/2017 by Chase Borja MD at [facility] Right: Knee [employer] 07/13/2022 [id number] / / [id number] Component Femoral Triathlon Pa 6 Knee Right Cruciate Retain Bead - [id number] Implanted:Qty: 1 on 10/16/2017 by Chase Borja MD at [facility] Right: Knee [employer] 08/11/2021 [id number] / / [id number] Insert Tibial Triathlon X3 6 H9 Mm Knee Cruciate Substitute - [id number] Implanted:Qty: 1 on 10/16/2017 by Chase Borja MD at [facility] Right: Knee [employer] 04/29/2022 [id number] / / [id number] Component Patellar Triathlon Julia-Apatite H40 Mm Knee Bead - [id number] Implanted:Qty: 1 on 10/16/2017 by Chase Borja MD at [facility] Right: Knee [employer] 03/27/2019 [id number] / / [id number] Procedures Procedure Name Priority Date/Time Associated Diagnosis Comments CTA ABDOMINAL AORTA AND BILATERAL ILIOFEMORAL RUNOFF Schedule Routine, Read Routine (OP Routine) 11/16/2023 10:49 AM CDT Atherosclerosis of [place] arteries of left leg with ulceration of other part of lower leg (HCC) EGFR STAT 07/03/2019 7:25 AM GLASS BEVELER from Last 3 Months or Most Recently [...] Schneider M.D., MPH us Padmini Heather Strope BUSINESS DEVELOPMENT OFFICER IMG CT PROCEDURES Final Result * eGFR (07/03/2019 7:25 AM GLASS BEVELER) eGFR 104 mL/min/1.7 3 m2 [facility] Comment: Interpretive Data Reference Interval Normal >/= 90 mL/min/1.73m2 Mildly decreased* 60 - 89 mL/min/1.73m2 Mildly to moderately decreased 45 - 59 mL/min/1.73m2 Moderately to severely decreased 30 - 44 mL/min/1.73m2 Severely decreased 15 - 29 mL/min/1.73m2 Kidney Failure < 15 mL/min/1.73m2 *Relative to young adult level If -[place] multiply value by 1.16. Estimated glomerular filtration [...] 2016. Blood specimen (specimen) 07/03/2019 7:25 AM GLASS BEVELER 07/03/2019 7:29 AM GLASS BEVELER Waldemar Platt MD LAB BLOOD ORDERABLES Final Result [facility] [id number] Department [place] [address] from Last 3 Months or Most Recently Relevant to Health Maintenance Insurance [facility] MEDICARE ADVANTAGE UHC MEDICARE ADVANTAGE [facility] MEDICARE UHC MEDICARE ADVANTAGE [facility] MEDICARE Advance Directives For more information, please contact: [phone] * Full Code (Latest Code Status on File) Date Activated Date Inactivated Comments 10/20/2017 10:04 AM 07/03/2019 5:49 AM * Full Code Date Activated Date Inactivated Comments 10/16/2017 5:27 PM 10/18/2017 4:41 PM Care Teams Air Brush Operator Relationship Specialty Start Date End Date Jesus Trinh MD [address] [place] [address] PCP - General 04/12/20 Jesus Trinh MD [address] [place] [address] 04/12/20
--- OUTSIDE RECORDS SUMMARY | 2025-02-26 01:33 | XMS_ITS | Clinical Summary ---
Author Organization [facility] Address [address] [place] [address] Care Team Providers Care Chicken Tender Name Role Phone Jesus Trinh MD Primary Care Provider [phone] Theo Langston MD Unavailable [phone] Allergies Active Allergy Reactions Criticality Noted Date [...] Indications: Heart health nutrition 9 Active Multiple Vitamins-Linn als (MULTIVITAMIN MEN 50+) TabIndications :Nutritional Support [...] 10/01/2018 Assessment & Plan (10/07/2018 5:19 AM FENDER REPAIRER): Acute, POA S/p bilateral TMA with Dr [...] 10/01/2018 Assessment & Plan (10/01/2018 9:12 PM FENDER REPAIRER): Chronic, stable BPs 130-140/60-70 Cont Home Meds: -Amlodipine 5mg -Losartan 50mg -nebivolol 10mg Anemia 10/01/2018 Assessment & Plan (10/07/2018 5:19 AM FENDER REPAIRER): Chronic, POA Downtrending, consider transfusion per Vascular B12 and Folate WNL No evidence of CKD Etiology likely ACD vs JENAE - iron studies consistent with Anemia of chronic disease - s/p 1U pRBC 10/04 and again 10/06 - trend CBC daily Arterial insufficiency of lower extremity 2018 Assessment & Plan (10/06/2018 11:52 AM FENDER REPAIRER): Chronic, POA ABIs at last admission: R ZACHARY 0.348 and L ZACHARY 0.217 suggesting severe PVD in a tibial distribution Pt to need bilateral midcalf amputations - on ASA, restart plavix - pravastatin 20mg Assessment & Plan (09/13/2018 7:09 AM FENDER REPAIRER): Patient reports he has been seen by vascular surgeon and underwent ABIs,which he states were abnormal. -Vascular surgery consulted, appreciate recommendations -Obtain lipid panel: Lower extremity edema 09/13/2018 Assessment & Plan (09/13/2018 10:09 AM FENDER REPAIRER): Pt with bilateral +1 pitting Lower extremity edema. Also with difficulty with urination, increased frequency with small output - Will trial one time dose of 20mg lasix IV - will trial flomax daily Resolved Problems Problem Noted Date Diagnosed Date Resolved Date Fever 10/05/2018 10/18/2018 Assessment & Plan (10/06/2018 11:53 AM FENDER REPAIRER): Acute x2 < started less than 48 [...] 10/18/2018 Assessment & Plan (10/07/2018 8:16 AM FENDER REPAIRER): Acute, improved - CXR negative for acute process - Cough suppressant PRN - IS started and Reencouraged to USe - with fever, cough (non productive), crackles on exam, concern for developing pneumonia vs post op inflammatory fever with atelectasis Peripheral vascular disease of lower extremity with ulceration ([facility]) 10/01/2018 10/18/2018 Gross hematuria 09/19/2018 10/18/2018 Cellulitis 09/12/2018 10/18/2018 Assessment & Plan (09/13/2018 7:16 AM FENDER REPAIRER): Patient w/ continued erythema bilateral feet. Failed [...] not improving -Pain control with gabapentin, Tylenol, [place], and Percocet Family History Medical History Relation [...] Comments Blood Pressure 122/64 10/24/2019 8:01 AM FENDER REPAIRER Pulse 60 10/24/2019 8:01 AM FENDER REPAIRER Temperature 35.6 C (96.1 F) 10/24/2019 8:01 AM FENDER REPAIRER Respiratory Rate 18 10/24/2019 8:01 AM FENDER REPAIRER Oxygen Saturation 97% 10/24/2019 8:01 AM FENDER REPAIRER Inhaled Oxygen Concentration - - Weight 98.7 [...] Comments LIPID PANEL STAT 09/12/2018 1:31 PM FENDER REPAIRER from Last 3 Months or Most Recently Relevant to Health Maintenance Results * (ABNORMAL) LIPID PANEL (09/12/2018 1:31 PM FENDER REPAIRER) CHOLESTEROL 101 <200 MG/DL 09/12/2018 4:51 PM FENDER REPAIRER [facility] TRIGLYCERIDES 36 <150 MG/DL 09/12/2018 4:51 PM [facility] HDL 37(L) >40.0 MG/DL 09/12/2018 4:51 PM [facility] LDL (CALCULATED) 57 <100 MG/DL 09/12/19 19 4:51 PM [facility] NON HDL CHOLESTEROL 64 <130 MG/DL 09/12 4:51 PM [facility] CHOL/HDL RATIO 2.7 0.0 - 4.5 09/12/2018 4:51 PM [facility] VLDL CALCULATION 7 5 - 55 MG/DL 09/12/2018 4:51 PM [facility] LIPID INTERPRETATION 09/12/2018 4:51 PM [facility] Comment: [facility] CONCENSUS REPORT RECOMMENDATIONS: ADULT CHILD LOW RISK: CHOLESTEROL <200 <170 TRIGLYCERIDE <150 --- HDL >=60 --- LDL <100 <110 BORDERLINE: CHOLESTEROL 200-239 170-199 TRIGLYCERIDE 150-199 --- HDL 40-59 --- LDL 100-159 110-129 HIGH RISK: CHOLESTEROL >=240 >=200 TRIGLYCERIDE >=200 --- HDL <40 --- LDL >=160 >=130 09/12/2018 1:31 PM FENDER REPAIRER us Cuate Sherwood MD LABORATORY Final Result [facility] [address] [place] [address], from Last 3 Months or Most Recently Relevant to Health Maintenance Insurance MED REPLACE [facility] MEDICARE MED REPLACE [facility] MEDICARE Advance Directives Documents on File Type Date Recorded Patient Apparatus Repair Mechanic Expl anation Advance Directives and Living Will [...] 5:04 PM 09/20/2018 10:42 AM Care Teams Chicken Tender Relationship Specialty Start Date End Date Jesus Trinh MD [address] [address] PCP - General FAMILY PRACTICE 09/12/18 Theo Langston MD [address] [address] Surgeon SURGERY 06/30/19
--- OUTSIDE RECORDS SUMMARY | 2025-02-26 01:33 | XMS_ITS | Encounter Summary ---
Author Organization [facility] Address [facility] [place] [address] Care Team Providers Care Tax Credit Leasing Consultant Name Role Phone Jesus Trinh MD Primary Care Provider [phone] Bennett Contreras MD Unavailable Theo Langston MD Unavailable Encounter Details Date Type Department Care Team (Late st Contact Info) Description 10/21/2018 Hospital Follow-up Call [facility] [place] [address] Sheryl Sevilla Social History Tobacco [...] Assessment Author Status No 10/08/2018 7:03 PM HEARING CARE PROFESSIONAL Activ e * RETIRED Are you blind or do you have serious difficulty seeing, even when wearing glasses? Answer Date of Assessment Author Status No 10/08/2018 7:03 PM HEARING CARE PROFESSIONAL Activ e * Do you have serious [...] on filedocumented in this encounter Care Teams Tax Credit Leasing Consultant Relationship Specialty Start Date End Date Jesus Trinh MD [address] [address] PCP - General FAMILY PRACTICE 09/12/18 Bennett Contreras MD [address] [place] [address] Vascular/Accounting Office Manager SURGERY 03/13/19 06/29/19 Theo Langston MD [address] [place] [address] Surgeon SURGERY 06/30/19 documented as of this encounter
--- NOTE | 2025-02-26 07:20 | WPDHPUPDATE1 ---
History and Physical Update Update Date/Time: 02/26/25 07:20 History and Physical has been reviewed, including an updated exam of the patient. There are NO changes in the patient's condition. Risks, benefits, and alternatives have been discussed and questions answered. Patient agrees to proceed with procedure.
[2025-02-26 08:10] VITALS: BP 148/56; PULSE 55; RESP 18; TEMP 36.2; O2SAT 96; BMI 33.2
--- NOTE | 2025-02-26 08:10 | SUR.PREOP ---
0810- SCD's and KHT's ordered for surgery, patient with BKA and unable to place.
--- NOTE | 2025-02-26 08:53 | WPDANESEPPF ---
Anes - Initial Pre Proc Eval Procedure: Operation Date: 02/26/25 10:00 Proposed Procedures p Cystoscopy, Urethral Dilatation. - David Gardner MD s Trans Urethral Resection Prostate - David Gardner MD Date/Time: 02/26/25 08:53 Surgeon: David Gardner MD Pre Op Diagnosis: BPH, stricture Patient Data Age: 79 Gender: M Height: 1.8 m Weight: 108.8 kg Allergies Allergy/AdvReac Type Severity Reaction Status Date / Time ciprofloxacin Allergy Intermediate gi upset Verified 02/23/25 15:49 Opioids - Morphine Analogues AdvReac Severe severee Verified 02/23/25 15:49 itching clavulanic acid (From AdvReac Mild C Diff Verified 02/23/25 15:49 Augmentin) Home Medications ?Medication ?Instructions ?Recorded ?Confirmed ?Type aspirin 325 mg tablet 325 mg PO DAILY 03/28/21 02/23/25 History coenzyme Q10 200 mg capsule 200 mg PO DAILY 03/28/21 02/23/25 History docusate sodium 100 mg capsule 100 mg PO HS 03/28/21 02/23/25 History (Colace) flaxseed oil 1,300 mg-omega 3,6,9 2 cap PO DAILY 03/28/21 02/23/25 History 845 mg-117 mg-117 mg capsule adnwcrja-zp-byblm 300 mcg-K 60 1 tablet PO DAILY 03/28/21 02/23/25 History mcg-lycop 600 mcg-lutein 300 mcg tablet (Centrum Silver Ultra Men's) vitamin B complex 1 tablet PO DAILY 03/28/21 02/23/25 History melatonin 3 mg tablet 3 mg PO QHS PRN sleep 08/02/22 02/23/25 History clobetasol 0.05 % scalp solution 1 applic topical DAILY #50 mL 11/13/23 02/23/25 Rx silver sulfadiazine 1 % topical 1 applic topical DAILY #85 grams 03/17/24 02/23/25 Rx cream nebivolol 10 mg tablet (Bystolic) 10 mg PO DAILY #90 tabs 04/15/24 02/23/25 Rx acetaminophen 500 mg tablet 1,000 mg PO BID PRN pain 06/24/24 02/23/25 History (Tylenol Extra Strength) mupirocin 2 % topical ointment 1 applic topical BID PRN itching 06/24/24 02/23/25 History finasteride 5 mg tablet 5 mg PO DAILY #90 tabs 07/07/24 01/20/25 Rx amlodipine 5 mg tablet 5 mg PO DAILY #90 tabs 08/06/24 02/23/25 Rx losartan 100 mg tablet 100 mg PO DAILY #90 tabs 08/21/24 02/23/25 Rx mirabegron 50 mg tablet,extended 50 mg PO DAILY #90 tabs 09/11/24 02/23/25 Rx release 24 hr (Myrbetriq) tamsulosin 0.4 mg capsule See Rx Instructions .Route 10/30/24 02/23/25 Rx .COMPLEX #90 caps acyclovir 400 mg tablet See Rx Instructions .Route 11/20/24 02/23/25 Rx .COMPLEX #180 tabs meloxicam 15 mg tablet 15 mg PO DAILY #90 tabs 11/26/24 02/23/25 Rx clobetasol 0.05 % topical cream 1 applic topical BID #60 grams 12/16/24 02/23/25 Rx tramadol 50 mg tablet 50 mg PO Q6H PRN Pain (Scale Score 12/16/24 02/23/25 Rx 4-6) #120 tabs nystatin 100,000 unit/gram topical 1 applic topical BID PRN Itching 01/06/25 02/23/25 Rx powder #60 grams simvastatin 10 mg tablet 10 mg PO DAILY #90 tabs 01/06/25 02/23/25 Rx gabapentin 300 mg capsule See Rx Instructions .Route 01/15/25 02/23/25 Rx .COMPLEX #810 caps Patient hx anesthesia problems: none Family hx anesthesia problems: none Results Review: All pre-operative results and documents have been reviewed as part of the pre-operative evaluation. [facility] Past Medical History Medical History Hyperlipemia C. difficile colitis Optic nerve atrophy Normal colonoscopy 05/14 Repeat 05/25 Back pain Peripheral arterial disease Osteoarthritis of knees, bilateral Osteoarthritis of shoulders, bilateral Phantom pain HTN (hypertension) Cataracts, bilateral maturing BPH (benign prostatic hyperplasia) Surgical History Surgical History History of right knee joint replacement History of inguinal hernia repair 2017 History of appendectomy S/P bilateral below knee amputation 2018 Family History Family History Father Heart disease Hypertension Mother Acute myocardial infarction Social History Social History Social History: Patient lives with his in a 1 level home with 2 stairs to enter. Patient has a ramp that he uses. Patient was independent prior with no assistive devices prior to his bilateral below-knee amputation. Patient was also working full-time in the [employer] industry. Smoking status: Never smoker Second hand tobacco smoke exposure: No Alcohol intake: current Drinks per week: 7 Alcohol use details: 1-2 glasses of wine daily Substance use: never Substance use type: painkillers Other substance usage details: Tramadol to help sleep Lack of Transportation: No Lack of Food: Never True Current Housing: I Have Housing Concerned About Future Housing: No Difficulty Paying Gas/Electric Bills: No Difficulty Paying for Meds: No Currently Unemployed: No Education: Bachelor's Degree Difficulty w/ Childcare or Family Care: No Living arrangements: with family Additional living arrangements comments: Occupation/Education: retired Gender identity (if verbalized by the patient): Male Sexual Orientation (if Verbalized by the Patient): Straight or Heterosexual Spiritual care concerns: No Agree to blood products: Yes Anes - Eval Final PreProcedure Day of Procedure 02/26/25 08:53 Patient weight: obese Heart: regular rate and rhythm Lungs: clear to auscultation Airway: Mallampati scale class II Neurological: alert and oriented Last oral intake: >/= 8 hours ASA classification: III Emergent: no Anesthetic plan: proceed Anesthesia type and monitoring: general LMA and standard monitoring Results Review: All pre-operative results and documents have been reviewed as part of the pre-operative evaluation. Informed Consent: The patient's anesthetic plan and its attendant risks and benefits were discussed with the patient/family/POA. Questions were solicited and answers provided to the satisfaction of the patient/family/POA.
[2025-02-26] MEDS: LACTATED RINGERS 1,000 ML 30 ML IV CONT (09:15)
--- NOTE | 2025-02-26 09:53 | P.PNAN_ITS ---
Anes - Eval Final PreProcedure Day of Procedure 02/26/25 09:53 Patient weight: obese Heart: regular rate and rhythm Lungs: clear to auscultation Airway: Mallampati scale class II Neurological: alert and oriented Last oral intake: >/= 8 hours ASA classification: III Emergent: no Anesthetic plan: proceed Anesthesia type and monitoring: general LMA and standard monitoring Results Review: All pre-operative results and documents have been reviewed as part of the pre- operative evaluation. Informed Consent: The patient's anesthetic plan and its attendant risks and benefits were discussed with the patient/family/POA. Questions were solicited and answers provided to the satisfaction of the patient/family/POA.
[2025-02-26] MEDS: ceFAZolin 2 GM/D5W 50 ML 2 GM/50 ML BAG IVPB (10:21)
[2025-02-26] MEDS: LIDOCAINE 2% GEL UROJET 10 ML PKG MUCOUS MEM (10:22)
[2025-02-26 10:35] VITALS: BP 132/48; PULSE 51; RESP 10; TEMP 36.3; O2SAT 100
--- NOTE | 2025-02-26 10:39 | W.PM.PROC2 ---
Procedure Note - Detailed Date of Procedure 02/26/25 Pre-op Diagnosis BPH, urethral stricture Post-op Diagnosis Same Procedure Performed Cystoscopy, urethral dilatation Surgeon David Gardner MD Anesthesia General Description of Procedure patient is brought to the operative suite was prepped and draped in routine sterile fashion while in dorsal lithotomy position after the uneventful induction of a general anesthetic. 2% xylocaine jelly was introduced intraurethrally and systemic sedation is administered per the anesthesia department. Cystoscopy was undertaken with a 19 F rigid cystoscope. He has a bulbous urethral and fossa navicular stricture. Before can not get beyond fossa navicularis I dilated that from 14 F to 20 F with Abdoulaye sounds. Upon seeing the bulbous urethral stricture I then dilated that area from 14 F to 28 F. Patient has essentially no significant prostatic hyperplasia. There was mild lateral lobe hyperplasia without obstruction of the prostatic urethra. There was no median lobe obstruction. In light of that I opted not to resect any prostate tissue. His bladder shows mild trabeculation. There was no intravesical foreign body or neoplasm. He had a single orthotopic ureteral orifice bilaterally. The bladder was emptied the cystoscope was removed. He was taken recovery room in good condition. Urine Output 250 Drains No Packing No Pathology None sent Complications No immediate complications
[2025-02-26 10:50] VITALS: BP 127/59; PULSE 53; RESP 12; O2SAT 100
[2025-02-26 11:05] VITALS: BP 135/57; PULSE 53; RESP 12; O2SAT 98
[2025-02-26 11:15] VITALS: BP 160/62; PULSE 53
[2025-02-26 11:45] VITALS: BP 153/45; PULSE 53
== END 2025-02-26 12:11 | disposition home or self-care (01) ==
PROVIDERS: PCP Family Medicine Adolescent Medicine; Visit Provider Urology
PROC: 0T7D8ZZ Dilation of Urethra, Via Natural or Artificial Opening Endoscopic (ICD-10-PCS; CPT 52281; principal; 2025-02-26 10:00)
DX: N35.916 Unspecified urethral stricture, male, overlapping sites (principal); N40.0 Benign prostatic hyperplasia without lower urinary tract symptoms; E66.9 Obesity, unspecified; Z68.33 Body mass index [BMI] 33.0-33.9, adult
CPT/HCPCS: 52281; J0690; J2003; J2405; J2704; J3010; J7120

== ENCOUNTER 2025-03-01 08:27 | Emergency (ER) | payer MEDICARE, SELFPAY ==
--- NOTE | ~2025-03-01 | CT_ITS ---
CLINICAL INDICATION: Trauma (mechanism unknown) shortness of breath, left rib pain and abdominal pain COMPARISON: 01/07/2025 and 09/29/2022. TECHNIQUE: An enhanced CT of the abdomen and pelvis was performed utilizing multislice spiral [place] ue reconstructed at 5 mm slice thickness. Coronal and sagittal reconstructions were performed. This CT examination was performed utilizing dose reduction techniques. DLP: 1602 mGy-cm FINDINGS/OBSERVATIONS: Lung: Left-sided pleural fluid of mixed attenuation with adjacent compressive atelectasis, presumably blood products as this is adjacent to multiple rib fractures. No contusion or pneumothorax. The heart is of normal size, without pericardial effusion. Mediastinum: No pathologically enlarged or morphologically suspicious lymph nodes are identified within the medias tinum, bilateral axilla, within the soft tissues of the anterior chest wall. Soft tissues of the chest: Unremarkable. Bones of the chest: Acute minimally displaced fractures of the left posterior eighth rib and posterior medial 7, 6 and fi fth ribs. Prior fracture deformity within the posterior medial margin of the left 12th rib. Liver: Multiple well-circumscribed rounded foci of fluid attenuation are identified within the liver, for which simple cysts are suspected (as these are unchanged from 2022). The remainder of the liver otherwise enhances homogeneously and is not enlarged. No perihepatic fluid to suggest acute hepatic injury. Gallbladder and biliary system: The gallbladder is minimally distended, but otherwise unremarkable. Pancreas: The pancreas enhances homogeneously, without ductal dilatation. No peripancreatic fluid is identified to suggest acute traumatic pancreatic injury. Spleen: A grade II splenic laceration is identified. The laceration measures approximately 2 cm with perisplenic (likely subcapsular) hematoma which is between 10-50% of the surface area of the spleen. The remainder of the spleen otherwise enhances homogeneously and is not enlarged. Kidneys: The bilateral kidneys enhance symmetrically without hydronephrosis or renal calculi. No perirenal fluid is identified to suggest acute traumatic renal injury. Adrenal glands: Unremarkable. Gastrointestinal tract: Small hiatal hernia is present. Fecal stasis within the colon. No significant free fluid within the abdomen or pelvis. Appendix: The appendix is not definitively visualized. However, no pericecal inflammatory change is identified suggest the presence of acute appendicitis. Vasculature: Calcified atherosclerotic disease is present. No aneurysmal dilatation or surrounding free fluid. Lymph nodes: Scattered nonpathologically enlarged lymph nodes within the root of the mesentery and deep in the pel vis. Pelvic structures: The bladder is minimally distended and contains multiple foci of air, without surrounding free fluid to suggest intraperitoneal or extraperitoneal bladder injury. The air is an abnormal finding, however . The prostate gland is not significantly enlarged. But does contain bulky calcifications. Body wall and musculoskeletal: Severe degenerative disease detected within the lower thoracic and lumbar spines. 32 degrees of levoscoliotic curvature identified within the lower lumbar spine. No acute compression fractures. IMPRESSION: Grade II splenic injury, as detailed above. Acute, minimally displaced left posterior medial rib fractures involving ribs 5 through 8 with adjace nt small hemothorax, without pneumothorax. Punctate foci of air within the bladder of unknown origin. These findings were discussed with Dr. Crespo at 10:15 AM on 03/01/2025 Reviewed, dictated and finalized at location A. IMPRESSION: Grade II splenic injury, as detailed above. Acute, minimally displaced left posterior medial rib fractures involving ribs 5 through 8 with adjacent small hemothorax, without pneumothorax. Punctate foci of air within the bladder of unknown origin. These findings were discussed with Dr. Crespo at 10:15 AM on 03/01/2025
--- NOTE | ~2025-03-01 | XR_ITS ---
CHEST RADIOGRAPH CLINICAL HISTORY: SOB . COMPARISON: Reference is made to a CT examination of the chest abdomen and pelvis dated 03/01/2025 TECHNIQUE: Single portable view of the chest. FINDINGS Calcified lymph nodes within the mediastinum suggesting prior granulomatous disease. The remainder of the cardiomediastinal silhouette is otherwise unremarkable. The lungs are clear. IMPRESSION: No focal infiltrate or effusion. Reviewed, dictated and finalized at location A.
--- OUTSIDE RECORDS SUMMARY | 2025-03-01 08:32 | XMS_ITS | Encounter Summary ---
Author Organization [facility] Address [facility] [place] [address] Care Team Providers Care Food Taster Name Role Phone Jesus Trinh MD Primary Care Provider [phone] Bennett Contreras MD Unavailable Theo Langston MD Unavailable [phone] Encounter Details Date Type Department Care Team (Late st Contact Info) Description 10/21/2018 Hospital Follow-up Call [facility] [place] [address] Sheryl Sevilla Social History Tobacco [...] Assessment Author Status No 10/08/2018 7:[address] Activ e * RETIRED Are you blind or do you have serious difficulty seeing, even when wearing glasses? Answer Date of Assessment Author Status No 10/08/2018 7:[address] Activ e * Do you have serious [...] on filedocumented in this encounter Care Teams Food Taster Relationship Specialty Start Date End Date Jesus Trinh MD [address] [address] PCP - General FAMILY PRACTICE 09/12/18 Bennett Contreras MD [address] [place] [address] Vascular/Creative Project Manager SURGERY 03/13/19 06/29/19 Theo Langston MD [address] [place] [address] Surgeon SURGERY 06/30/19 documented as of this encounter
--- OUTSIDE RECORDS SUMMARY | 2025-03-01 08:32 | XMS_ITS | Referral Summary ---
Author Organization [facility] [address] Address [address] [place] [address] Phone Care Team Providers Care Principal Clerk Typist Name Role Phone Jesus Trinh MD Primary [...] (06/26/2019): Added automatically from request for surgery [id number] Arthralgia of hip 08/25/2016 Overview (12/01/2016): Hip [...] on file Legal Sex Male 11:01 AM BICYCLE REPAIRMAN Gender Identity Male 09/17/2023 1:32 PM BICYCLE REPAIRMAN Sexual Orientation Straight 09/17/2023 1: 32 PM BICYCLE REPAIRMAN Last Filed Vital Signs Vital Sign Reading Time Taken Comments Blood Pressure 120/68 10/06/2019 1:30 PM BICYCLE REPAIRMAN Pulse 72 10/06/2019 1:30 PM BICYCLE REPAIRMAN Temperature 36.9 C (98.5 F) 07/03/2019 8:50 AM BICYCLE REPAIRMAN Respiratory Rate 15 07/03/2019 10:00 AM BICYCLE REPAIRMAN Oxygen Saturation 98% 07/03/2019 10:00 AM BICYCLE REPAIRMAN Inhaled Oxygen Concentration - - Weight 98.4 kg (217 lb) 10/06/2019 1:30 PM BICYCLE REPAIRMAN Height 182.9 cm (6') 10/06/2019 1:30 PM BICYCLE REPAIRMAN Body Mass Index 29.43 10/06/2019 1:30 PM BICYCLE REPAIRMAN Plan of Treatment Not on file Medical Devices Implanted Type Area Invoice Clerk Device Identifier Shelf Expiration Date Model / Serial / Lot Baseplate Tibial Triathlon Tritanium 6 L77 Mm X W52 Mm Knee 4 Cruciform Peg Keel - [id number] Implanted:Qty: 1 on 10/16/2017 by Chase Borja MD at [facility] Right: Knee [facility] 07/13/2022 5536-B-600 / / [id number] Component Femoral Triathlon Pa 6 Knee Right Cruciate Retain Bead - [id number] Implanted:Qty: 1 on 10/16/2017 by Chase Borja MD at [facility] Right: Knee [facility] 08/11/2021 [id number]-F-602 / / [id number] Insert Tibial Triathlon X3 6 H9 Mm Knee Cruciate Substitute - [id number] Implanted:Qty: 1 on 10/16/2017 by Chase Borja MD at [facility] Right: Knee [facility] 04/29/2022 [id number] / / [id number] Component Patellar Triathlon Julia-Apatite H40 Mm Knee Bead - [id number] Implanted:Qty: 1 on 10/16/2017 by Chase Borja MD at [facility] Right: Knee [employer] [facility] 03/27/2019 5554-L-401 / / [id number] Procedures Procedure Name Priority Date/Time Associated Diagnosis Comments CTA ABDOMINAL AORTA AND BILATERAL ILIOFEMORAL RUNOFF Schedule Routine, Read Routine (OP Routine) 11/16/2023 10:49 AM CDT 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 Estimated glomerular filtration [...] 2016. Blood specimen (specimen) 07/03/2019 7:25 AM BICYCLE REPAIRMAN 07/03/2019 7:29 AM BICYCLE REPAIRMAN us Waldemar Platt MD LAB BLOOD ORDERABLES Final Result Performing Organization Address City/State/ZIP Co co Phone Number [facility] [address] [place] [address] from Last 3 Months or Most Recently Relevant to Health Maintenance Insurance [employer] [address] [employer]HC MEDICARE ADVANTAGE [employer] MEDICARE [employer] MED[employer]ARE ADVANTAGE [employer] MEDICARE Advance Directives For more information, please contact: [phone] * Full Code (Latest Code Status on File) Date Activated Date Inactivated Comments 10/20/2017 10:04 AM 07/03/2019 5:49 AM * Full Code Date Activated Date Inactivated Comments 10/16/2017 5:27 PM 10/18/2017 4:41 PM Care Teams Principal Clerk Typist Relationship Specialty Start Date End Date Jesus Trinh MD [address] [place] [address] PCP - General 04/12/20 Jesus Trinh MD [address] [place] [address] 04/12/20
--- OUTSIDE RECORDS SUMMARY | 2025-03-01 08:32 | XMS_ITS | Clinical Summary ---
Author Organization [facility] Address [address] [place] [address] Care Team Providers Care Field Service Specialist Name Role Phone Jesus Trinh MD Primary Care Provider [phone] Theo Langston MD Unavailable [phone] Allergies Active Allergy Reactions Criticality Noted Date [...] Indications: Heart health nutrition 9 Active Multiple Vitamins-Ware als (MULTIVITAMIN MEN 50+) TabIndications :Nutritional Support [...] 10/01/2018 Assessment & Plan (10/07/2018 5:19 AM SOW MANAGER): Acute, POA S/p bilateral TMA with Dr [...] 10/01/2018 Assessment & Plan (10/01/2018 9:12 PM SOW MANAGER): Chronic, stable BPs 130-140/60-70 Cont Home Meds: -Amlodipine 5mg -Losartan 50mg -nebivolol 10mg Anemia 10/01/2018 Assessment & Plan (10/07/2018 5:19 AM SOW MANAGER): Chronic, POA Downtrending, consider transfusion per Vascular B12 and Folate WNL No evidence of CKD Etiology likely ACD vs JENAE - iron studies consistent with Anemia of chronic disease - s/p 1U pRBC 10/04 and again 10/06 - trend CBC daily Arterial insufficiency of lower extremity 2018 Assessment & Plan (10/06/2018 11:52 AM SOW MANAGER): Chronic, POA ABIs at last admission: R ZACHARY 0.348 and L ZACHARY 0.217 suggesting severe PVD in a tibial distribution Pt to need bilateral midcalf amputations - on ASA, restart plavix - pravastatin 20mg Assessment & Plan (09/13/2018 7:09 AM SOW MANAGER): Patient reports he has been seen by vascular surgeon and underwent ABIs,which he states were abnormal. -Vascular surgery consulted, appreciate recommendations -Obtain lipid panel: Lower extremity edema 09/13/2018 Assessment & Plan (09/13/2018 10:09 AM SOW MANAGER): Pt with bilateral +1 pitting Lower extremity edema. Also with difficulty with urination, increased frequency with small output - Will trial one time dose of 20mg lasix IV - will trial flomax daily Resolved Problems Problem Noted Date Diagnosed Date Resolved Date Fever 10/05/2018 10/18/2018 Assessment & Plan (10/06/2018 11:53 AM SOW MANAGER): Acute x2 < started less than 48 [...] 10/18/2018 Assessment & Plan (10/07/2018 8:16 AM SOW MANAGER): Acute, improved - CXR negative for acute process - Cough suppressant PRN - IS started and Reencouraged to USe - with fever, cough (non productive), crackles on exam, concern for developing pneumonia vs post op inflammatory fever with atelectasis Peripheral vascular disease of lower extremity with ulceration ([facility] [facility]) 10/01/2018 10/18/2018 Gross hematuria 09/19/2018 10/18/2018 Cellulitis 09/12/2018 10/18/2018 Assessment & Plan (09/13/2018 7:16 AM SOW MANAGER): Patient w/ continued erythema bilateral feet. Failed [...] not improving -Pain control with gabapentin, Tylenol, Nunda, and Percocet Family History Medical History Relation [...] Comments Blood Pressure 122/64 10/24/2019 8:01 AM SOW MANAGER Pulse 60 10/24/2019 8:01 AM SOW MANAGER Temperature 35.6 C (96.1 F) 10/24/2019 8:01 AM SOW MANAGER Respiratory Rate 18 10/24/2019 8:01 AM SOW MANAGER Oxygen Saturation 97% 10/24/2019 8:01 AM SOW MANAGER Inhaled Oxygen Concentration - - Weight 98.7 [...] Comments LIPID PANEL STAT 09/12/2018 1:31 PM SOW MANAGER from Last 3 Months or Most Recently Relevant to Health Maintenance Results * (ABNORMAL) LIPID PANEL (09/12/2018 1:31 PM SOW MANAGER) CHOLESTEROL 101 <200 MG/DL 09/12/2018 4:51 PM SOW MANAGER [facility] TRIGLYCERIDES 36 <150 MG/DL 09/12/2018 4:51 PM [facility] HDL 37(L) >40.0 MG/DL 09/12/2018 4:51 PM [facility] LDL (CALCULATED) 57 <100 MG/DL 09/12/19 19 4:51 PM [facility] NON HDL CHOLESTEROL 64 <130 MG/DL 09/12 4:51 PM [facility] CHOL/HDL RATIO 2.7 0.0 - 4.5 09/12/2018 4:51 PM [facility] VLDL CALCULATION 7 5 - 55 MG/DL 09/12/2018 4:51 PM [facility] LIPID INTERPRETATION 09/12/2018 4:51 PM [facility] Comment: [facility] REPORT RECOMMENDATIONS: ADULT CHILD LOW RISK: CHOLESTEROL <200 <170 TRIGLYCERIDE <150 --- HDL >=60 --- LDL <100 <110 BORDERLINE: CHOLESTEROL 200-239 170-199 TRIGLYCERIDE 150-199 --- HDL 40-59 --- LDL 100-159 110-129 HIGH RISK: CHOLESTEROL >=240 >=200 TRIGLYCERIDE >=200 --- HDL <40 --- LDL >=160 >=130 09/12/2018 1:31 PM SOW MANAGER us Cuate Sherwood MD LABORATORY Final Result [facility] [address] [place] [address], from Last 3 Months or Most Recently Relevant to Health Maintenance Insurance MED REPLACE [facility] MEDICARE MED REPLACE [facility] MEDICARE Advance Directives Documents on File Type Date Recorded Patient Presetter Operator Expl anation Advance Directives and Living Will [...] 5:04 PM 09/20/2018 10:42 AM Care Teams Field Service Specialist Relationship Specialty Start Date End Date Jesus Trinh MD [address] [address] PCP - General FAMILY PRACTICE 09/12/18 Theo Langston MD [address] [address] Surgeon SURGERY 06/30/19
--- OUTSIDE RECORDS SUMMARY | 2025-03-01 08:32 | XMS_ITS | Clinical Summary ---
Author Organization [facility] [address] Address [address] [place] [address] Phone Care Team Providers Care Hoop Punch Operator Helper Name Role Phone Jesus Trinh MD Primary [...] (06/26/2019): Added automatically from request for surgery [id number] Arthralgia of hip 08/25/2016 Overview (12/01/2016): Hip [...] Medical Left total knee replacement 09-29-13; Comments: [facility] 10/13/2014 - Hx Other Medical Left total knee replacement on 09-29-14.; Comments: [facility] 11/17/2014 - Hx Other Medical 09-04-16 80 mg. D epo-Medrol/2 cc marcaine L knee.; Comments: [facility] 09/05/2016 - Hx Other Medical 11-27-16 Right kn ee Synvisc injection.; Comments: 11-27-16 [facility] 11/28/2016 - Hypertension Family History Medical [...] on file Legal Sex Male 11:01 AM KEYBOARD SPECIALIST Gender Identity Male 09/17/2023 1:32 PM KEYBOARD SPECIALIST Sexual Orientation Straight 09/17/2023 1: 32 PM KEYBOARD SPECIALIST Obstetrics History Last Filed Vital Signs Vital Sign Reading Time Taken Comments Blood Pressure 120/68 10/06/2019 1:30 PM KEYBOARD SPECIALIST Pulse 72 10/06/2019 1:30 PM KEYBOARD SPECIALIST Temperature 36.9 C (98.5 F) 07/03/2019 8:50 AM KEYBOARD SPECIALIST Respiratory Rate 15 07/03/2019 10:00 AM KEYBOARD SPECIALIST Oxygen Saturation 98% 07/03/2019 10:00 AM KEYBOARD SPECIALIST Inhaled Oxygen Concentration - - Weight 98.4 kg (217 lb) 10/06/2019 1:30 PM KEYBOARD SPECIALIST Height 182.9 cm (6') 10/06/2019 1:30 PM KEYBOARD SPECIALIST Body Mass Index 29.43 10/06/2019 1:30 PM KEYBOARD SPECIALIST Plan of Treatment Health Maintenance Due Date [...] , 09/23/2018 Medical Devices Implanted Type Area Lens Molding Equipment Operator Device Identifier Shelf Expiration Date Model / Serial / Lot Baseplate Tibial Triathlon Tritanium 6 L77 Mm X W52 Mm Knee 4 Cruciform Peg Keel - [id number] Implanted:Qty: 1 on 10/16/2017 by Chase Borja MD at [facility] Right: Knee [facility] 07/13/2022 5536-B-600 / / [id number] Component Femoral Triathlon Pa 6 Knee Right Cruciate Retain Bead - [id number] Implanted:Qty: 1 on 10/16/2017 by Chase Borja MD at [facility] Right: Knee [facility] 08/11/2021 5517-F-602 / / [id number] Insert Tibial Triathlon X3 6 H9 Mm Knee Cruciate Substitute - [id number] Implanted:Qty: 1 on 10/16/2017 by Chase Borja MD at [facility] Right: Knee [facility] 04/29/2022 [id number] / / [id number] Component Patellar Triathlon Julia-Apatite H40 Mm Knee Bead - [id number] Implanted:Qty: 1 on 10/16/2017 by Chase Borja MD at [facility] Right: Knee [facility] 03/27/2019 5554-L-401 / / [id number] Procedures Procedure Name Priority Date/Time Associated Diagnosis Comments CTA ABDOMINAL AORTA AND BILATERAL ILIOFEMORAL RUNOFF Schedule Routine, Read Routine (OP Routine) 11/16/2023 10:49 AM CDT 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 (HCC) EGFR STAT 07/03/2019 7:25 AM KEYBOARD SPECIALIST from Last 3 Months or Most Recently [...] Schneider M.D., MPH us Padmini Heather Strope TRIPLE VALVE TESTER IMG CT PROCEDURES Final Result * eGFR (07/03/2019 7:25 AM KEYBOARD SPECIALIST) eGFR 104 mL/min/1.7 3 m2 [facility] Comment: Interpretive Data Reference Interval Normal >/= 90 mL/min/1.73m2 Mildly decreased* 60 - 89 mL/min/1.73m2 Mildly to moderately decreased 45 - 59 mL/min/1.73m2 Moderately to severely decreased 30 - 44 mL/min/1.73m2 Severely decreased 15 - 29 mL/min/1.73m2 Kidney Failure < 15 mL/min/1.73m2 *Relative to young adult level If -[place] multiply value by 1.16. Estimated glomerular filtration [...] 2016. Blood specimen (specimen) 07/03/2019 7:25 AM KEYBOARD SPECIALIST 07/03/2019 7:29 AM KEYBOARD SPECIALIST Waldemar Platt MD LAB BLOOD ORDERABLES Final Result [facility] [id number] [place] [address] from Last 3 Months or Most Recently Relevant to Health Maintenance Insurance [facility] MEDICARE ADVANTAGE UHC MEDICARE ADVANTAGE [facility] MEDICARE UHC MEDICARE ADVANTAGE [facility] MEDICARE [facility] MEDICARE Address: [address] [place] [address] Advance Directives For more information, please contact: [phone] * Full Code (Latest Code Status on File) Date Activated Date Inactivated Comments 10/20/2017 10:04 AM 07/03/2019 5:49 AM * Full Code Date Activated Date Inactivated Comments 10/16/2017 5:27 PM 10/18/2017 4:41 PM Care Teams Hoop Punch Operator Helper Relationship Specialty Start Date End Date Jesus Trinh MD [address] [place] [address] PCP - General 04/12/20 Jesus Trinh MD [address] [place] [address] 04/12/20
[2025-03-01 08:37] VITALS: BP 190/55; PULSE 67; RESP 20; TEMP 36.7; O2SAT 97
[2025-03-01 08:46] VITALS: BP 170/51; PULSE 66; RESP 17; O2SAT 96
--- NOTE | 2025-03-01 08:50 | ED.GENADULT ---
HPI - General Adult General Chief complaint: Fall Stated complaint: fall, left rib pain thinks urine dark Time Seen by Provider: 03/01/25 08:36 History of Present Illness HPI narrative: 80-year-old male presenting to the emergency department for evaluation for left-sided rib pain after ground level fall on Sunday. 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 Patient states he does have gait instability because of this. Patient reports he had a mechanical fall. Patient denies striking head denies any loss of consciousness. Patient did land on his left side and did injure his left ribs. Patient was evaluated by EMS at that time and patient declined transfer. Patient states since the injury he has had worsening shortness of breath and is having to sleep sitting up. Patient denies any other pain or injury. Related Data Home Medications ?Medication ?Instructions ?Recorded ?Confirmed ?Last Taken ?Type aspirin 325 mg tablet 325 mg PO DAILY 03/28/21 02/23/25 Unknown History coenzyme Q10 200 mg capsule 200 mg PO DAILY 03/28/21 02/23/25 Unknown History docusate sodium 100 mg capsule 100 mg PO HS 03/28/21 02/23/25 Unknown History (Colace) flaxseed oil 1,300 mg-omega 3,6,9 2 cap PO DAILY 03/28/21 02/26/25 02/23/25 History 845 mg-117 mg-117 mg capsule [id number] 300 mcg-K 60 1 tablet PO DAILY 03/28/21 02/26/25 02/19/25 History mcg-lycop 600 mcg-lutein 300 mcg tablet (Centrum Silver Ultra Men's) vitamin B complex 1 tablet PO DAILY 03/28/21 02/26/25 02/19/25 History melatonin 3 mg tablet 3 mg PO QHS PRN sleep 08/02/22 02/23/25 Unknown History acetaminophen 500 mg tablet 1,000 mg PO BID PRN pain 06/24/24 02/23/25 Unknown History (Tylenol Extra Strength) mupirocin 2 % topical ointment 1 applic topical BID PRN itching 06/24/24 02/23/25 Unknown History Allergies Allergy/AdvReac Type Severity Reaction Status Date / Time Opioids - Morphine Analogues AdvReac Severe Itching Verified 03/01/25 08:44 clavulanic acid (From AdvReac Mild C Diff Verified 03/01/25 08:44 Augmentin) latex AdvReac Unknown Itching Verified 03/01/25 08:44 Review of Systems Review of Systems: All systems reviewed & are unremarkable except as noted in HPI and below PMFSH Past Medical History Medical History Hyperlipemia C. difficile colitis Optic nerve atrophy Normal colonoscopy 05/14 Repeat 05/25 Back pain Peripheral arterial disease Osteoarthritis of knees, bilateral Osteoarthritis of shoulders, bilateral Phantom pain HTN (hypertension) Cataracts, bilateral maturing BPH (benign prostatic hyperplasia) Surgical History Surgical History History of right knee joint replacement History of inguinal hernia repair 2017 History of appendectomy S/P bilateral below knee amputation 2018 Family History Family History Father Heart disease Hypertension Mother Acute myocardial infarction Social History Social History Social History: Patient lives with his in a 1 level home with 2 stairs to enter. Patient has a ramp that he uses. Patient was independent prior with no assistive devices prior to his bilateral below-knee amputation. Patient was also working full-time in the [employer] industry. Smoking status: Never smoker Second hand tobacco smoke exposure: No Alcohol intake: current Drinks per week: 7 Alcohol use details: 1-2 glasses of wine daily Substance use: never Substance use type: painkillers Other substance usage details: Tramadol to help sleep Lack of Transportation: No Lack of Food: Never True Current Housing: I Have Housing Concerned About Future Housing: No Difficulty Paying Gas/Electric Bills: No Difficulty Paying for Meds: No Currently Unemployed: No Education: Bachelor's Degree Difficulty w/ Childcare or Family Care: No Living arrangements: with family Additional living arrangements comments: Occupation/Education: retired Gender identity (if verbalized by the patient): Male Sexual Orientation (if Verbalized by the Patient): Straight or Heterosexual Spiritual care concerns: No Agree to blood products: Yes Exam Narrative: APPEARANCE: Uncomfortable appearing when attempted to lay the patient flat. HEAD: normocephalic, atraumatic. EYES: PERRLA/EOMI, conjunctivae clear. NOSE: Normal no drainage EARS:TMS clear with good light reflex. THROAT: Pharynx clear, no exudate. NECK: Supple. No adenopathy, no masses. RESPIRATORY: Airway patent, respirations nonlabored. Clear to auscultation bilaterally, no rales, rhonchi, wheezing. CARDIOVASCULAR: Regular rate and rhythm without murmurs rubs or gallops. ABDOMINAL: Left lateral abdominal tenderness to palpation MUSCULOSKELETAL: Left lateral rib tenderness to palpation NEURO: Alert. Cranial nerves II through XII intact. Grossly intact SKIN: Left lateral abdomen ecchymosis Course Vital Signs Vital signs: Vital Signs Temperature 98.0 F 03/01/25 08:37 Pulse Rate 67 03/01/25 08:37 Respiratory Rate 20 03/01/25 08:37 Blood Pressure 190/55 H 03/01/25 08:37 Pulse Oximetry 97 03/01/25 08:37 Oxygen Delivery Room Air 03/01/25 08:37 Temperature 98.0 F 03/01/25 08:37 Pulse Rate 68 03/01/25 11:11 Respiratory Rate 19 03/01/25 11:11 Blood Pressure 166/66 H 03/01/25 11:11 Pulse Oximetry 97 03/01/25 11:11 Oxygen Delivery Room Air 03/01/25 08:37 Medical Decision Making [facility] Narrative Medical decision making narrative: 80-year-old male present to the emergency department for evaluation for left-sided rib pain and worsening shortness of breath when lying flat. Patient is afebrile but does have a leukocytosis of 10.9 hemoglobin 11.7 which is not far from his typical baseline. Patient's INR is 1.0. Patient does have a sodium 129. Chest x-ray showed no acute focal infiltrate. CT chest abdomen pelvis does show multiple rib fractures of ribs 567 and 8 on the left with a small hemothorax with no pneumothorax. Patient does have a grade 2 splenic laceration on that side. Patient is on aspirin but no blood thinners. Patient family updated on the results of the workup and plan for transfer. Patient does [facility] to be transferred to [facility]. I discussed the case with Dr. Gonsales and patient was accepted as a level 2 trauma. Differential Diagnosis Differential Diagnosis: Rib fracture, hemothorax, pneumothorax, rib contusion, pulmonary contusion, splenic lac. Vital Signs Vital Signs: Vital Signs Temperature 98.0 F 07/06/25 08:37 Pulse Rate 67 03/01/25 08:37 Respiratory Rate 20 03/01/25 08:37 Blood Pressure 190/55 H 03/01/25 08:37 Pulse Oximetry 97 03/01/25 08:37 Oxygen Delivery Room Air 03/01/25 08:37 Temperature 98.0 F 03/01/25 08:37 Pulse Rate 68 03/01/25 11:11 Respiratory Rate 19 03/01/25 11:11 Blood Pressure 166/66 H 03/01/25 11:11 Pulse Oximetry 97 03/01/25 11:11 Oxygen Delivery Room Air 03/01/25 08:37 Lab Data Lab results reviewed: Yes I reviewed the patient's lab results. 03/01/25 08:58 03/01/25 08:58 Labs: Lab Results 03/01/25 Range/Units 08:58 WBC 10.9 H (4.5-10.0) K/mm3 RBC 3.90 L (4.6-6.20) M/mm3 Hgb 11.7 L (14.0-18.0) g/dL Hct 35.7 L (42.0-52.0) % MCV 91.5 (80-100) fl MCH 30.0 (26-34) pg MCHC 32.8 (32-36) g/dl RDW 13.5 (11.5-14.5) % Plt Count 249 (150-375) k/mm3 MPV 8.5 (7.4-10.4) fl Immature Gran % (Auto) 0.6 H (0-0.5) % Neut % (Auto) 77.3 H (45.5-73.1) % Lymph % (Auto) 10.1 L (18.3-44.2) % Leslie % (Auto) 9.1 H (2.6-8.5) % Eos % (Auto) 2.4 (0-4.4) % Baso % (Auto) 0.5 (0.2-1.2) % Lymph # (Auto) 1.10 (0.9-3.2) K/mm3 Leslie # (Auto) 1.0 H (0.1-0.6) K/mm3 Eos # (Auto) 0.3 (0-0.3) K/mm3 Baso # (Auto) 0.1 (0.0-0.1) K/mm3 Abs Immat Gran (auto) 0.07 H (0.00-0.031) K/mm3 Absolute Neuts (auto) 8.4 H (1.3-6.7) K/mm3 Absolute Nucleated RBC 0.000 (0.0-0.012) K/mm3 Nucleated RBC % 0.0 (0.0-0.2) % PT 13.5 (11.1-14.7) Seconds INR 1.0 APTT 35.9 (22.3-36.8) Seconds Sodium 129 L (137-145) mmol/L Potassium 4.6 (3.4-5.0) mmol/L Chloride 94 L (98-107) mmol/L Carbon Dioxide 28 (22-30) mmol/L Anion Gap 7 (4-12) mmol/L BUN 12 (9-20) mg/dL Creatinine 0.68 L (0.7-1.3) mg/dL Estim Creat Clear Calc 91 ml/min Estimated GFR > 60 (59 - ) Glucose 97 (65-110) mg/dL Calcium 8.4 (8.4-10.2) mg/dL Total Bilirubin 0.4 (0.2-1.3) mg/dL AST 35 (17-59) U/L ALT 17 (6-50) U/L Alkaline Phosphatase 40 (38-126) U/L Total Protein 7.0 (6.3-8.2) g/dL Albumin 4.0 (3.5-5.1) g/dL Imaging Data Radiologist's impression: Impressions Chest X-Ray 03/01/25 09:37 IMPRESSION: No focal infiltrate or effusion. Chest/Abdomen/Pelvis CT 03/01/25 10:10 IMPRESSION: Grade II splenic injury, as detailed above. Acute, minimally displaced left posterior medial rib fractures involving ribs 5 through 8 with adjacent small hemothorax, without pneumothorax. Punctate foci of air within the bladder of unknown origin. These findings were discussed with Dr. Crespo at 10:15 AM on 03/01/2025 Discharge Plan Discharge Clinical Impression: Spleen laceration, Closed rib fracture Patient Disposition: Acute Care Hospital Condition: Serious Patient Language: [place] Prescriptions: No Action nebivolol [Bystolic] 10 mg tablet 10 mg PO DAILY Qty: 90 2RF mupirocin 2 % ointment 1 applic topical BID PRN (Reason: itching) acetaminophen [Tylenol Extra Strength] 500 mg tablet 1,000 mg PO BID PRN (Reason: pain) meloxicam 15 mg tablet 15 mg PO DAILY Qty: 90 1RF Patient Comments: HOLD 7 DAYS melatonin 3 mg tablet 3 mg PO QHS PRN (Reason: sleep) ketorolac 10 mg tablet 10 mg PO Q6H 5 Days Qty: 20 0RF clobetasol 0.05 % solution 1 applic topical DAILY Qty: 50 1RF silver sulfadiazine 1 % cream 1 applic topical DAILY Qty: 85 1RF Rx Instructions: apply a 1.5 mm thickness finasteride 5 mg tablet 5 mg PO DAILY Qty: 90 3RF amlodipine 5 mg tablet 5 mg PO DAILY Qty: 90 2RF losartan 100 mg tablet 100 mg PO DAILY Qty: 90 3RF mirabegron [Myrbetriq] 50 mg tablet extended release 24 hr 50 mg PO DAILY Qty: 90 2RF tamsulosin 0.4 mg capsule See Rx Instructions .ROUTE .COMPLEX Qty: 90 2RF Dose Instruction: TAKE 1 CAPSULE BY MOUTH DAILY Rx Instructions: TAKE 1 CAPSULE BY MOUTH DAILY acyclovir 400 mg tablet See Rx Instructions .ROUTE .COMPLEX Qty: 180 1RF Dose Instruction: TAKE 1 TABLET BY MOUTH TWICE DAILY Rx Instructions: TAKE 1 TABLET BY MOUTH TWICE DAILY tramadol 50 mg tablet 50 mg PO Q6H PRN (Reason: Pain (Scale Score 4-6)) Qty: 120 5RF clobetasol 0.05 % cream 1 applic topical BID Qty: 60 2RF nystatin 100,000 unit/gram powder 1 applic TOPICAL BID PRN (Reason: Itching) Qty: 60 2RF simvastatin 10 mg tablet 10 mg PO DAILY Qty: 90 2RF gabapentin 300 mg capsule See Rx Instructions .ROUTE .COMPLEX Qty: 810 2RF Rx Instructions: Take 2( 600mg) in AM and at noon, 2 (300 mg) at 1700, and 3 (900 mg) at bedtime. Total of 2100 mg a day. aspirin 325 mg Tablet 325 mg PO DAILY Patient Comments: HOLD 7 DAYS PREOP docusate sodium [Colace] 100 mg Capsule 100 mg PO HS vitamin B complex Tablet 1 tablet PO DAILY coenzyme Q10 200 mg Capsule 200 mg PO DAILY Centrum Silver Ultra Men's 300-600-300 mcg Tablet 1 tablet PO DAILY Patient Comments: patient takes Complete Multivitamin for men 50+ flaxseed oil-omega 3,6,9 1,300 mg-845 mg -117 mg-117 mg Capsule 2 cap PO DAILY Follow-up/Referrals: Jesus Trinh MD [Primary Care Provider] -
[2025-03-01] MEDS: fentaNYL CITRATE INJ (*CRX) 100 MCG/2 ML VIAL 50 MCG IV PUSH (09:04)
[2025-03-01 09:05] LABS: Hematocrit 35.7 % (42.0-52.0); Hemoglobin 11.7 g/dL (14.0-18.0); Immature Granulocyte Percent A 0.6 % (0-0.5); Lymphocytes Absolute Auto 1.10 K/mm3 (0.9-3.2); Mean Corpuscular HGB Conc 32.8 g/dl (32-36); Mean Corpuscular Hemoglobin 30.0 pg (26-34); Mean Corpuscular Volume 91.5 fl (80-100); Nucleated Red Blood Cells Absolute Auto 0.000 K/mm3 (0.0-0.012); Nucleated Red Blood Cells Perc 0.0 % (0.0-0.2); Platelet Count Result 249 k/mm3 (150-375); Red Blood Count 3.90 M/mm3 (4.6-6.20); White Blood Count 10.9 K/mm3 (4.5-10.0)
[2025-03-01 09:17] LABS: INR 1.0; Partial Thromboplastin Time 35.9 Seconds (22.3-36.8); Prothrombin Time 13.5 Seconds (11.1-14.7)
[2025-03-01 09:18] LABS: Alanine Aminotransferase 17 U/L (6-50); Albumin Level 4.0 g/dL (3.5-5.1); Alkaline Phosphatase 40 U/L (38-126); Anion Gap 7 mmol/L (4-12); Aspartate Amino Transferase 35 U/L (17-59); Bilirubin,Total 0.4 mg/dL (0.2-1.3); Blood Urea Nitrogen 12 mg/dL (9-20); Calcium 8.4 mg/dL (8.4-10.2); Carbon Dioxide 28 mmol/L (22-30); Chloride 94 mmol/L (98-107); Estimated CRCL calculation 91 ml/min; Estimated Glomerular Filt Rate > 60; Glucose 97 mg/dL (65-110); Potassium 4.6 mmol/L (3.4-5.0); Sodium 129 mmol/L (137-145); Total Protein 7.0 g/dL (6.3-8.2)
[2025-03-01 10:41] VITALS: BP 187/74; PULSE 69; RESP 20; O2SAT 96
[2025-03-01 11:11] VITALS: BP 166/66; PULSE 68; RESP 19; O2SAT 97
== END 2025-03-01 11:22 | disposition short-term general hospital (02) ==
PROVIDERS: Emergency Provider Emergency Medicine; PCP Family Medicine Adolescent Medicine
DX: S36.039A Unspecified laceration of spleen, initial encounter (principal); S22.42XA Multiple fractures of ribs, left side, initial encounter for closed fracture; W18.30XA Fall on same level, unspecified, initial encounter; E78.5 Hyperlipidemia, unspecified; I10 Essential (primary) hypertension; Z96.651 Presence of right artificial knee joint; Z89.512 Acquired absence of left leg below knee; Z89.511 Acquired absence of right leg below knee
CPT/HCPCS: 36415; 71045; 71260; 74177; 80053; 85025; 85610; 85730; 96374; 99285; J3010; Q9967

== ENCOUNTER 2025-03-16 13:38 | Outpatient (CLI) | payer MEDICARE, SELFPAY ==
--- NOTE | ~2025-03-16 | XR_ITS ---
XR chest 2V 03/16/2025 13:49 Indication: Shortness of breath Procedure: 2 view chest Comparison: 03/01/2025 Findings: Heart size normal. Small left pleural effusion. Elevated left diaphragm. There are calcifie d mediastinal left ribs, consistent with chronic granulomatous disease. No focal pneumonia or edema. Impression: 1: Small left pleural effusion. Reviewed, dictated and finalized at location A. Impression: 1: Small left pleural effusion.
== END 2025-03-16 13:39 | disposition home or self-care (01) ==
LOC: MICIMG 13:39
PROVIDERS: PCP Family Medicine Adolescent Medicine; Visit Provider Family Medicine Adolescent Medicine
DX: S22.49XA Multiple fractures of ribs, unspecified side, initial encounter for closed fracture (principal); X58.XXXA Exposure to other specified factors, initial encounter; J90 Pleural effusion, not elsewhere classified
CPT/HCPCS: 71046

== ENCOUNTER 2025-04-20 11:00 | Outpatient (RCR) | payer SELFPAY | END 2025-05-10 23:59 | disposition home or self-care (01) | LOC: ANHAUDASC 11:00 | PROVIDERS: PCP Family Medicine Adolescent Medicine; Visit Provider Family Medicine Adolescent Medicine | DX: Z46.1 Encounter for fitting and adjustment of hearing aid (principal) | CPT/HCPCS: 99199; V5261 ==

== ENCOUNTER 2025-06-07 20:47 | Observation (INO) | payer MEDICARE, SELFPAY ==
--- NOTE | ~2025-06-07 | CT_ITS ---
EXAMINATION: CTA chest PE abdomen pel DATE: 06/07/2025 22:50 INDICATION: Right-sided pain. Fall. Near syncope. TECHNIQUE: Computed tomography angiography (CTA) of the chest was performed with 100 mL Omnipaque-350 intravenous contrast timed to evaluate the pulmonary arteries. Coronal maximum intensity projection 3D-reconstructions were created by the technologist. Computed tomography (CT) of the abdomen and pelvis was performed with intravenous contrast. Automated exposure control and iterative reconstruction technique were employed. The dose-length product was 2396.21 mGy-cm. COMPARISON: CT 03/01/2025 FINDINGS: CTA chest: The lungs demonstrate mild atelectasis. Calcified pulmonary nodules and calcified hilar and mediastinal lymph nodes are consistent with old granulomatous disease. No pleural effusion. The heart size is normal. There are coronary artery calcifications. No pericardial effusion. There is no pulmonary embolus. There is severe thoracic spondylosis. There are fractures of right seventh and eighth ribs. There are healing fractures of the left fifth-eighth ribs. There are old healed left rib fractures. CT abdomen and pelvis: There are cysts in the liver measuring up to 1.5 cm. The gallbladder is contracted. Calcifications in the spleen are consistent with old granulomatous disease. The pancreas and adrenal glands are normal. There is mild bilateral hydronephrosis and hydroureter. The bladder is distended. There is diverticulosis of the colon without evidence of diverticulitis. There are no dilated loops of bowel. The appendix is not visualized. There are no pathologically enlarged lymph nodes. There is no free intraperitoneal fluid. There is a left inguinal hernia containing fat. There is severe lumbar spondylosis. IMPRESSION: 1. Fractures of the right seventh and eighth ribs. 2. No pulmonary embolus. 3. Mild bilateral hydronephrosis and hydroureter. Distended bladder. 4. Left inguinal hernia containing fat. Reviewed, dictated and finalized at location E.
--- NOTE | ~2025-06-07 | CT_ITS ---
EXAMINATION: CT brain wo con DATE: 06/07/2025 22:50 INDICATION: Fall. TECHNIQUE: Computed tomography (CT) of the head was performed without intravenous contrast. The mA was adjusted according to patient size. Iterative reconstruction technique was employed. The dose-length product was 681.00 mGy-cm. COMPARISON: None FINDINGS: There are scattered areas of low attenuation in the cerebral white matter. There is no intracranial hemorrhage, acute infarction, or abnormal intracranial mass lesion. The ventricles are normal in size. There are likely changes of ocular lens replacement surgeries. There is mild mucosal thickening in the paranasal sinuses. The mastoid air cells are normal. IMPRESSION: 1. Moderate nonspecific cerebral white matter disease, which likely represents chronic small vessel ischemic disease. Reviewed, dictated and finalized at location E.
--- NOTE | ~2025-06-07 | XR_ITS ---
EXAMINATION: XR hand RT min 3V DATE: 06/07/2025 22:19 INDICATION: Right hand injury TECHNIQUE: Posteroanterior, oblique and lateral views of the right hand were obtained. COMPARISON: None. FINDINGS: Bone alignment is normal. No fracture. Polyarticular osteoarthritis, severe at the first carpometacarpal and second and third metacarpophalangeal joints. Additional moderate osteoarthritis at the distal radioulnar joint and mild osteoarthritis at the wrist, triscaphe, first metacarpophalangeal and multiple interphalangeal joints. Soft tissues are unremarkable. IMPRESSION: 1. No acute osseous abnormality. 2. Polyarticular osteoarthritis, severe at the first carpometacarpal and second and third metacarpophalangeal joints. The atypical predominance at the second and third metacarpophalangeal joints suggest possibility of secondary osteoarthritis related to calcium pyrophosphate deposition (CPPD) disease. Reviewed, dictated and finalized at location A. IMPRESSION: 1. No acute osseous abnormality. 2. Polyarticular osteoarthritis, severe at the first carpometacarpal and second and third metacarpophalangeal joints. The atypical predominance at the second and third metacarpophalangeal joints suggest possibility of secondary osteoarth ritis related to calcium pyrophosphate deposition (CPPD) disease.
[2025-06-07 20:45] VITALS: BP 128/56; PULSE 75; RESP 14; TEMP 36.7; O2SAT 94
--- NOTE | 2025-06-07 20:59 | ECG_ITS ---
Test Date: 2025-06-07 21:20:42 Measurements Intervals [place] Rate: 67 P: 0 OK: 0 QRS: 61 QRSD: 151 T: 30 QT: 422 QTc: 446 Interpretive Statements ATRIAL FIBRILLATION WITH ABERRANT CONDUCTION OR VENTRICULAR PREMATURE COMPLEXES RIGHT BUNDLE BRANCH BLOCK BASELINE ARTIFACT- I, III, AVR, AVL, AVF ABNORMAL ECG Compared to ECG 02/25/2025 10:35:49 SINUS RHYTHM NO LONGER PRESENT Electronically Signed On 06-08-2025 06:19:23 CDT by Frank Hairston D.O.
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
[2025-06-07 21:57] VITALS: PULSE 65
[2025-06-07 22:02] LABS: Hematocrit 35.3 % (42.0-52.0); Hemoglobin 11.6 g/dL (14.0-18.0); Immature Granulocyte Percent A 0.7 % (0-0.5); Lymphocytes Absolute Auto 0.95 K/mm3 (0.9-3.2); Mean Corpuscular HGB Conc 32.9 g/dl (32-36); Mean Corpuscular Hemoglobin 29.7 pg (26-34); Mean Corpuscular Volume 90.3 fl (80-100); Nucleated Red Blood Cells Absolute Auto 0.000 K/mm3 (0.0-0.012); Nucleated Red Blood Cells Perc 0.0 % (0.0-0.2); Platelet Count Result 244 k/mm3 (150-375); Red Blood Count 3.91 M/mm3 (4.6-6.20); White Blood Count 12.7 K/mm3 (4.5-10.0)
[2025-06-07] MEDS: SODIUM CHLORIDE 0.9% IV 1,000 ML 999 ML IV CONT (22:04)
[2025-06-07] MEDS: TETANUS,DIPHTHERIA,AC PERTUSSIS ADULT (0.5 ML) BOOSTRIX IM (22:05)
[2025-06-07 22:11] LABS: Add Urine Microscopic? NO; Appearance Urine Clear (Clear); Glucose Urine UA Negative (Negative); Leukocyte Esterase Ur Negative LEU/UL (Negative); Nitrate Urine Negative (Negative); Specific Grav Ur 1.010 (1.001-1.035)
[2025-06-07 22:18] LABS: Alanine Aminotransferase 23 U/L (6-50); Albumin Level 4.3 g/dL (3.5-5.1); Alkaline Phosphatase 60 U/L (38-126); Anion Gap 6 mmol/L (4-12); Aspartate Amino Transferase 45 U/L (17-59); Bilirubin,Total 0.3 mg/dL (0.2-1.3); Blood Urea Nitrogen 15 mg/dL (9-20); Calcium 8.3 mg/dL (8.4-10.2); Carbon Dioxide 30 mmol/L (22-30); Chloride 87 mmol/L (98-107); Creatine Kinase 41 U/L (55-170); Estimated CRCL calculation 82 ml/min; Estimated Glomerular Filt Rate > 60; Glucose 108 mg/dL (65-110); Lipase 31 U/L (23-300); Magnesium 2.1 mg/dL (1.6-2.3); Potassium 5.0 mmol/L (3.4-5.0); Sodium 123 mmol/L (137-145); Total Protein 7.4 g/dL (6.3-8.2)
[2025-06-07 22:19] LABS: INR 1.0; Partial Thromboplastin Time 32.7 Seconds (22.3-36.8); Prothrombin Time 13.4 Seconds (11.1-14.7)
[2025-06-07 22:26] LABS: NT Pro B Type Natriuretic Pept 2280 pg/mL (19.9-100)
[2025-06-07 22:32] LABS: Cannabinoid Screen Urine Negative (Negative)
[2025-06-07 22:47] LABS: Thyroid Stimulating Hormone Reflex 3.540 uIU/mL (0.465-4.68)
[2025-06-07 23:05] VITALS: PULSE 81; RESP 15; O2SAT 98
[2025-06-07 23:18] VITALS: BP 134/61; PULSE 83; RESP 13; O2SAT 96
[2025-06-07 23:23] LABS: Troponin I < 0.012 ng/mL (0.000-0.034)
[2025-06-07] MEDS: LIDOCAINE 5% PATCH 1 PATCH TRANSDERM (23:44)
[2025-06-08] VITALS (13 sets, daily range): BP systolic 124–157; BP diastolic 46–88; PULSE 69–83; RESP 12–19; TEMP 35.8–36.6; O2SAT 96–98; BMI 35.0
--- NOTE | 2025-06-08 | ECHO_ITS ---
Patient Info Name: Ky Winter Age: 80 years : 1945 Gender: Male Ht: 70 in Wt: 244 lbs BSA: 2.38 m2 HR: 83 bpm BP: 157 / 88 mmHg Heart Rhythm: Sinus Rhythm Technical Quality: Fair Exam Date: 06/08/2025 1:44 PM Patient Status: O Admit Date: 06/08/2025 Exam Type: CA echo doppler color flow Complete two-dimensional, color flow and Doppler transthoracic echocardiogram is performed with contrast to opacify the left ventricle and to improve the deliniation of the left ventricle endocardial borders. Staff Referring Physician: Ulices Morse Wringer Operator: Cecilia Manzano Attending Provider: Alexia Baltazar DO Contrast/Agitated Saline Contrast/Ag. Saline: Definity Amount: 2.00 ml Administered By: Cecilia Manzano Existing IV Access: Yes IV Access Condition: patent with no signs of infiltration Summary 1. The left ventricle is normal in size and systolic function. The left ventricular ejection fraction is visually estimated to be 60-65%. There are no regional wall motion abnormalities. 2. The right ventricle is normal in size and systolic function. Left Ventricle The left ventricle is normal in size and systolic function. The left ventricular ejection fraction is visually estimated to be 60-65%. There are no regional wall motion abnormalities. Right Ventricle The right ventricle is normal in size and systolic function. Left Atria The left atrium is normal size. Right Atria The right atrium is normal size. Atrial Septum The atrial septum is not well visualized. Aortic Valve The aortic valve leaflets are not well visualized. There is no aortic stenosis or regurgitation. Pulmonic Valve The pulmonic valve is not well visualized. Pericardium/Pleural Pericardium is normal in appearance with no evidence for significant pericardial effusion. Inferior Vena Cava Inferior vena cava is not well visualized. Aorta The aortic root is not well visualized. Left Ventricular Outflow Tract Name Value Normal LVOT 2D LVOT Diameter 2.0 cm LVOT Doppler LVOT Peak Velocity 87 cm/s LVOT Peak Gradient 2 mmHg LVOT Mean Gradient 1 mmHg LVOT VTI 17 cm LVOT VTI/AV VTI Ratio 1.0 LVOT Stroke Volume 54 ml LVOT CO 5.6 l/min LVOT CI 2.3 l/min/m2 Pulmonic Valve Name Value Normal RVOT Doppler RVOT Peak Velocity 74 cm/s RVOT Peak Gradient 1 mmHg PV Doppler PV Peak Velocity 92 cm/s PV Peak Gradient 2 mmHg Mitral Valve Name Value Normal MV Diastolic Function MV E Peak Velocity 83 cm/s MV A Peak Velocity 28 cm/s MV E/A 3.0 MV Decel Time (PW) 187 ms MV Annular TDI MV E/e' (Septal) 9.4 MV E/e' (Lateral) 7.3 MV E/e' (Average) 8.4 Tricuspid Valve Name Value Normal TV Annular TDI TV Lateral Conchis s' Velocity 7.4 cm/s >=9.5 Aorta Name Value Normal Ascending Aorta Ao Root Diameter (MM) 3.4 cm Ao Root Diam Index (MM) 1.4 cm/m2 Aortic Valve Name Value Normal AV Doppler AV Peak Velocity 103 cm/s AV Peak Gradient 4 mmHg AV Mean Gradient 2 mmHg AV VTI 18 cm AV Area (Cont Eq VTI) 3.1 cm2 >=3.0 AV Area (Cont Eq Liu) 2.7 cm2 AV DI (Liu) 0.84 AV Regurgitation 2D LVOT Area 3.2 cm2 Ventricles Name Value Normal LV Dimensions 2D/MM IVS Diastolic Thickness (2D) 0.7 cm 0.6-1.0 LVID Diastole (2D) 3.7 cm 4.2-5.8 LVIW Diastolic Thickness (2D) 0.7 cm 0.6-1.0 LVID Systole (2D) 2.3 cm 2.5-4.0 LVOT Diameter 2.0 cm LV Mass (2D Cubed) 70.21 g 88.00-224.00 LV Mass Index (2D Cubed) 30 g/m2 49-115 Relative Wall Thickness (2D) 0.39 <=0.42 LV Fractional Shortening/Ejection Fraction 2D/MM LV Fractional Shortening (2D) 38 % 25-43 LV EF (2D Teichholz) 69 % LV Diastolic Volume (4C MOD) 129 ml LV EF (4C MOD) 72 % LV Diastolic Volume (2C MOD) 82 ml LV EF (2C MOD) 64 % LV Diastolic Volume (BP MOD) 108 ml 62-150 LV Diastolic Volume Index (BP MOD) 46 ml/m2 34-74 LV Systolic Volume (BP MOD) 33 ml 21-61 LV Systolic Volume Index (BP MOD) 14 ml/m2 11-31 LV EF (BP MOD) 70 % 52-72 LV Diastolic Length (4C) 9.3 cm LV Systolic Length (4C) 7.0 cm LV Stroke Volume (4C MOD) 93 ml Atria Name Value Normal LA Dimensions LA Dimension (MM) 5.2 cm 3.0-4.0 LA Volume (4C A-L) 71 ml LA Volume (BP A-L) 75 ml RA Dimensions RA Area (4C) 25.8 cm2 <=18.0 Report Signatures
[2025-06-08] MEDS: traMADol HCL (*CRX) 50 MG TABLET PO (00:21)
--- NOTE | 2025-06-08 00:24 | PC.NURSE ---
ED respiratory called for incentive spirometer training.
--- NOTE | 2025-06-08 00:42 | ECG_ITS ---
Test Date: 2025-06-08 00:47:57 Measurements Intervals [place] Rate: 78 P: 0 FL: 0 QRS: 89 QRSD: 152 T: 42 QT: 390 QTc: 446 Interpretive Statements ATRIAL FIBRILLATION RIGHT BUNDLE BRANCH BLOCK BASELINE ARTIFACT- I, II, III, AVR, AVL, AVF, V1-V6 ABNORMAL ECG Compared to ECG 06/07/2025 21:20:42 NO SIGNIFICANT CHANGE Electronically Signed On 06-08-2025 06:21:55 CDT by Frank Hairston D.O.
[2025-06-08] MEDS: SODIUM CHLORIDE 0.9% IV 1,000 ML 100 ML IV CONT (01:03)
[2025-06-08 01:18] LABS: Troponin I < 0.012 ng/mL (0.000-0.034)
--- NOTE | 2025-06-08 02:23 | WNDPHOTO ---
PHOTO ONLY - See Nursing Notes and/ or assessments for documentation.
--- NOTE | 2025-06-08 02:29 | ADMGEN ---
This patient, Ky Winter, was admitted to 2 Medical Room 242-01. Patient/family oriented to hospital policies and general routines including ID bracelet, bed and alarms, visiting hours, pain management, procedures, bathroom and other care routines, personal items, smoking policy, room service/diet, and visiting hours. Information on how to activate the Rapid Response Team has been discussed. Patient/Family are encouraged to report perceived risks to care and to ask questions if they do not understand what they are told or what they should do.
[2025-06-08 04:31] LABS: Hematocrit 37.6 % (42.0-52.0); Hemoglobin 12.4 g/dL (14.0-18.0); Mean Corpuscular HGB Conc 33.0 g/dl (32-36); Mean Corpuscular Hemoglobin 30.2 pg (26-34); Mean Corpuscular Volume 91.5 fl (80-100); Platelet Count Result 255 k/mm3 (150-375); Red Blood Count 4.11 M/mm3 (4.6-6.20); White Blood Count 11.8 K/mm3 (4.5-10.0)
[2025-06-08 04:48] LABS: Anion Gap 7 mmol/L (4-12); Blood Urea Nitrogen 12 mg/dL (9-20); Calcium 8.7 mg/dL (8.4-10.2); Carbon Dioxide 31 mmol/L (22-30); Chloride 95 mmol/L (98-107); Estimated CRCL calculation 80 ml/min; Estimated Glomerular Filt Rate > 60; Glucose 107 mg/dL (65-110); Potassium 5.1 mmol/L (3.4-5.0); Sodium 133 mmol/L (137-145)
[2025-06-08 04:58] LABS: Troponin I < 0.012 ng/mL (0.000-0.034)
[2025-06-08] MEDS: DEXTROSE 5% 1,000 ML 1,000 ML 100 ML IV CONT (05:39)
[2025-06-08] MEDS: ASPIRIN 325 MG TABLET PO (08:27)
[2025-06-08] MEDS: TAMSULOSIN HCL 0.4 MG CAPSULE PO (08:27)
[2025-06-08] MEDS: NEBIVOLOL HCL 5 MG TABLET 10 MG PO (08:28)
[2025-06-08] MEDS: CHOLECALCIFEROL (VITAMIN D3) 25 MCG (1,000 UNITS) TABLET PO (08:28)
[2025-06-08] MEDS: LORATADINE 10 MG TABLET PO (08:28)
[2025-06-08] MEDS: OPTI-GEN TAB 1 TABLET PO (08:28)
[2025-06-08] MEDS: GABAPENTIN 300 MG CAPSULE 600 MG PO ×2 (08:28→12:35)
[2025-06-08] MEDS: ARTIFICIAL TEARS OPHTH SOLN 15 ML BOTTLE 1 DROP EACH EYE (08:29)
[2025-06-08 10:19] LABS: Anion Gap 9 mmol/L (4-12); Blood Urea Nitrogen 11 mg/dL (9-20); Calcium 8.9 mg/dL (8.4-10.2); Carbon Dioxide 30 mmol/L (22-30); Chloride 95 mmol/L (98-107); Estimated CRCL calculation 90 ml/min; Estimated Glomerular Filt Rate > 60; Glucose 127 mg/dL (65-110); Potassium 4.7 mmol/L (3.4-5.0); Sodium 134 mmol/L (137-145)
--- NOTE | 2025-06-08 11:27 | PM.IMHP ---
H&P: HPI History of Present Illness Date/Time: 06/08/25 11:27 Chief Complaint: Dizziness, fall Narrative: This is an 80-year-old male that presented to the ED on 06/07/2025 for evaluation of dizziness and a fall. Patient said he had gotten up from his chair after dinner he was going to go to the bathroom and after he had stood up he had the experience some dizziness. He had a fall and landed on a cabinet. He was unable to get up and his had called 911 for an ambulance to take him to the ED. he did not have loss of consciousness or strike his head during the fall. Patient has a past medical history of bilateral [id number] amputations due to lack of proper blood flow according to him. He denies history of diabetes. He does have a wound on his right stump that he cares for at home. He has past medical history of hypertension, hyperlipidemia, neuropathy and BPH. Patient denies any history of abnormal heart rhythms however further questioning patient had a traumatic injury back in February where he broke multiple ribs was told that he had AFib and as AFib but no one has done anything about his AFib. Patient denies use of any beta-blockers or calcium channel blockers. (But he is on bystolic and amlodipine and aspirin.) He has not seen a personal care aid. While he was in the ED he was found to have AFib with a rate of 67, multiple PVCs and aberrant conduction of supraventricular beats. CBC reveals a white blood cell count 12.7, hemoglobin 0.6. Coags within normal limits. Comprehensive metabolic panel is sodium 123, chloride of 87, calcium of 8.3. Lipase 31. BNP is 2280. Total creatine kinase is 41. Magnesium is 2.1. Lactic acid is 1.0. Urinalysis is without any significant abnormalities. UDS is negative. Ethyl alcohol is less than 10. CT of the head reveals no evidence of acute intracranial abnormality. No intracranial hemorrhage, mass effect or edema. No skull fracture. Chronic microvascular ischemic changes. Atrophy. CT of the chest reveals nondisplaced fractures of the right lateral 7th and 8th ribs. No pneumothorax. Scattered linear atelectasis/scarring. No pleural effusion. No acute osseous abnormality. Subacute fractures of the left anterior 5th and 6th and 7th ribs with callus formation. Old fractures of the left lower lateral ribs. CT of the abdomen pelvis reveals no acute traumatic intra-abdominal injury. No acute osseous abnormality. Bilateral hydroureteronephrosis without obstructing ureteral calculus. Bilateral renal cortical low attenuation changes, artifact versus infection. Urinary bladder wall thickening, nonspecific. Correlate with urinalysis. No bowel obstruction or inflammation. Hepatic steatosis. Scattered hepatic cyst and additional subcentimeter hypodensities too small to definitively characterize. Right hand x-ray reveals no evidence of acute fracture or dislocation. Patient admitted for further workup of AFib. This could be reason for his dizziness and fall.. [facility] Past Medical History Medical History Hyperlipemia C. difficile colitis Optic nerve atrophy Normal colonoscopy 05/14 Repeat 05/25 Back pain Peripheral arterial disease Osteoarthritis of knees, bilateral Osteoarthritis of shoulders, bilateral Phantom pain HTN (hypertension) Cataracts, bilateral maturing BPH (benign prostatic hyperplasia) Surgical History Surgical History History of right knee joint replacement History of inguinal hernia repair 2017 History of appendectomy S/P bilateral below knee amputation 2018 Family History Family History Father Heart disease Hypertension Mother Acute myocardial infarction Social History Social History Social History: Patient lives with his in a 1 level home with 2 stairs to enter. Patient has a ramp that he uses. Patient was independent prior with no assistive devices prior to his bilateral below-knee amputation. Patient was also working full-time in the [employer] industry. Smoking status: Never smoker Second hand tobacco smoke exposure: No Alcohol intake: current Drinks per week: 7 Alcohol use details: 1-2 glasses of wine daily Substance use: never Substance use type: painkillers Other substance usage details: Tramadol to help sleep Lack of Transportation: No Lack of Food: Never True Current Housing: I Have Housing Concerned About Future Housing: No Difficulty Paying Gas/Electric Bills: No Difficulty Paying for Meds: No Currently Unemployed: No Education: Bachelor's Degree Difficulty w/ Childcare or Family Care: No Living arrangements: with family Additional living arrangements comments: Occupation/Education: retired Gender identity (if verbalized by the patient): Male Sexual Orientation (if Verbalized by the Patient): Straight or Heterosexual Spiritual care concerns: No Agree to blood products: Yes Meds Home Medications and Allergies Home Medications ?Medication ?Instructions ?Recorded ?Confirmed ?Type aspirin 325 mg tablet 325 mg PO DAILY 03/28/21 06/08/25 History coenzyme Q10 200 mg capsule 200 mg PO DAILY 03/28/21 06/08/25 History docusate sodium 100 mg capsule 100 mg PO HS 03/28/21 06/08/25 History (Colace) flaxseed oil 1,300 mg-omega 3,6,9 2 cap PO DAILY 03/28/21 06/08/25 History 845 mg-117 mg-117 mg capsule [id number] 300 mcg-K 60 1 tablet PO DAILY 03/28/21 06/08/25 History mcg-lycop 600 mcg-lutein 300 mcg tablet (Centrum Silver Ultra Men's) vitamin B complex 1 tablet PO DAILY 03/28/21 06/08/25 History melatonin 3 mg tablet 3 mg PO QHS PRN sleep 08/02/22 06/08/25 History silver sulfadiazine 1 % topical 1 applic topical DAILY #85 grams 03/17/24 06/08/25 Rx cream nebivolol 10 mg tablet (Bystolic) 10 mg PO DAILY #90 tabs 04/15/24 06/08/25 Rx acetaminophen 500 mg tablet 1,000 mg PO BID PRN pain 06/24/24 06/08/25 History (Tylenol Extra Strength) mupirocin 2 % topical ointment 1 applic topical BID PRN itching 06/24/24 06/08/25 History losartan 100 mg tablet 100 mg PO DAILY #90 tabs 08/21/24 06/08/25 Rx tamsulosin 0.4 mg capsule See Rx Instructions .Route 10/30/24 06/08/25 Rx .COMPLEX #90 caps tramadol 50 mg tablet 50 mg PO Q6H PRN Pain (Scale Score 12/16/24 06/08/25 Rx 4-6) #120 tabs nystatin 100,000 unit/gram topical 1 applic topical BID PRN Itching 01/06/25 06/08/25 Rx powder #60 grams gabapentin 300 mg capsule See Rx Instructions .Route 01/15/25 06/08/25 Rx .COMPLEX #810 caps carboxymethylcellulose 0.5 1 drp EACH EYE QAM 03/18/25 06/08/25 History %-glycerin 0.9 % eye drops (Refresh Optive) cholecalciferol (vitamin D3) 25 25 mcg PO DAILY 03/18/25 06/08/25 History mcg (1,000 unit) capsule (Vitamin D3) flaxseed oil 1,000 mg capsule 1,000 mg PO BID 03/18/25 06/08/25 History loratadine 10 mg tablet (Claritin) 10 mg PO DAILY 03/18/25 06/08/25 History white petrolatum-mineral oil 94 1 applic EACH EYE QHS 03/18/25 06/08/25 History %-3 % eye ointment (Systane Nighttime) amlodipine 5 mg tablet 5 mg PO DAILY #90 tabs 04/27/25 06/08/25 Rx clobetasol 0.05 % scalp solution 1 applic topical DAILY #50 mL 04/28/25 06/08/25 Rx acyclovir 400 mg tablet See Rx Instructions .Route 06/03/25 06/08/25 Rx .COMPLEX #180 tabs clobetasol 0.05 % topical cream 1 applic topical BID PRN itching 06/08/25 06/08/25 History coenzyme Q10 200 mg capsule (Co 200 mg PO DAILY 06/08/25 06/08/25 History Q-10) collagenase clostridium histo. 250 1 applic topical DAILY PRN wound 06/08/25 06/08/25 History unit/gram topical ointment (Santyl) care cyclosporine 0.05 % eye drops in a 1 drp EACH EYE Q12H 06/08/25 06/08/25 History dropperette finasteride 5 mg tablet 5 mg PO HS 06/08/25 06/08/25 History meloxicam 15 mg tablet 15 mg PO HS 06/08/25 06/08/25 History mirabegron 50 mg tablet,extended 50 mg PO HS 06/08/25 06/08/25 History release 24 hr (Myrbetriq) polyethylene glycol 3350 17 17 g PO DAILY 06/08/25 06/08/25 History gram/dose oral powder (Miralax) simvastatin 10 mg tablet 10 mg PO QPM 06/08/25 06/08/25 History solifenacin 5 mg tablet (Vesicare) 5 mg PO HS 06/08/25 06/08/25 History Allergies Allergy/AdvReac Type Severity Reaction Status Date / Time Opioids - Morphine Analogues AdvReac Severe Itching Verified 06/08/25 02:54 latex AdvReac Unknown Itching Verified 06/08/25 02:54 Vital Signs Vital Signs - 24 hr 06/07/25 20:45 06/07/25 21:57 06/07/25 23:05 Temperature 98.1 F Pulse Rate 75 65 81 Respiratory Rate 14 15 Blood Pressure 128/56 L Pulse Oximetry 94 98 Oxygen Delivery Room Air 06/07/25 23:18 06/08/25 00:17 06/08/25 01:47 Temperature Pulse Rate 83 81 72 Respiratory Rate 13 13 13 Blood Pressure 134/61 124/46 L 124/60 Pulse Oximetry 96 98 98 Oxygen Delivery 06/08/25 02:13 06/08/25 02:35 06/08/25 04:00 Temperature 97.4 F L Pulse Rate 83 77 75 Respiratory Rate 19 17 Blood Pressure 124/60 144/68 H Pulse Oximetry 98 98 Oxygen Delivery 06/08/25 04:15 06/08/25 08:28 06/08/25 08:28 Temperature 96.5 F L Pulse Rate 69 80 80 Respiratory Rate 17 17 Blood Pressure 153/63 H Pulse Oximetry 97 97 Oxygen Delivery Room Air 06/08/25 08:28 06/08/25 11:15 06/08/25 11:17 Temperature Pulse Rate 78 70 83 Respiratory Rate 12 16 Blood Pressure 148/68 H 157/88 H Pulse Oximetry 96 97 Oxygen Delivery 06/08/25 11:21 06/08/25 11:22 Temperature Pulse Rate 70 83 Respiratory Rate Blood Pressure 148/68 H 157/88 H Pulse Oximetry Oxygen Delivery Exam Narrative: GENERAL: Comfortable, no acute distress HENMT: moist mucous membranes EYES: EOM intact b/l NECK: no lymphadenopathy RESPIRATORY: clear to auscultation, no increased respiratory effort CARDIO: Irregular rhythm, rate controlled. GI: soft, nontender, bowel sounds present SKIN/EXTREMITIES: bilateral BKA, pressure wound on right numb NEURO: PROM intact, answers questions appropriately, A&O x4 H&P: Results Labs Labs: Short CBC 06/07/25 06/08/25 Range/Units 21:54 04:23 WBC 12.7 H 11.8 H (4.5-10.0) K/mm3 Hgb 11.6 L 12.4 L (14.0-18.0) g/dL Hct 35.3 L 37.6 L (42.0-52.0) % Plt Count 244 255 (150-375) k/mm3 BMP 06/07/25 06/08/25 06/08/25 21:53 04:23 08:24 Sodium 123 L 133 L 134 L Potassium 5.0 5.1 H 4.7 Chloride 87 L 95 L 95 L Carbon Dioxide 30 31 H 30 BUN 15 12 11 Creatinine 0.76 0.79 0.69 L Glucose 108 107 127 H Calcium 8.3 L 8.7 8.9 Cardiac Enzymes 06/07/25 06/08/25 06/08/25 Range/Units 21:53 00:49 04:23 Total Creatine Kinase 41 L (55-170) U/L Troponin I < 0.012 < 0.012 < 0.012 (0.000-0.034) ng/mL Liver Function 06/07/25 Range/Units 21:53 Total Bilirubin 0.3 (0.2-1.3) mg/dL AST 45 (17-59) U/L ALT 23 (6-50) U/L Alkaline Phosphatase 60 (38-126) U/L Albumin 4.3 (3.5-5.1) g/dL Urine 06/07/25 Range/Units 21:54 Urine Color Yellow (Yellow) Urine Appearance Clear (Clear) Urine pH 8.0 (5.0-9.0) Ur Specific [place] 1.010 (1.001-1.035) Urine Protein Negative (Negative) mg/dL Urine Glucose (UA) Negative (Negative) mg/dL Assessment and Plan Assessment and plan (1) Fall from ground level: Code(s): W18.30XA - Fall on same level, unspecified, initial encounter Status: Acute Assessment and Plan: Patient had a fall on 06/07/25 that resulted in him presenting to the ED. he was found to have multiple rib fractures. -It is believed that fall is likely from untreated atrial fibrillation. -Pain medication p.r.n. -PT OT ordered. (2) Atrial fibrillation: Code(s): I48.91 - Unspecified atrial fibrillation Status: Acute Assessment and Plan: On review of chart it was found that patient had AFib back in February. When asking about a he said that he was never told he had AFib. He does take bystolic and aspirin. Patient states that he does not want to be taking a blood thinner. It was explained that this leads to a much higher instance of stroke in patients with AFib that are not on blood thinners. He was okay with this at the time. -Consult Cardiology. (3) Elevated brain natriuretic peptide (BNP) level: Code(s): R79.89 - Other specified abnormal findings of blood chemistry Status: Acute Assessment and Plan: BNP elevated to 2280 -Cardiology consulted -Echocardiogram ordered (4) Peripheral arterial disease: Code(s): I73.9 - Peripheral vascular disease, unspecified Status: Acute Assessment and Plan: Peripheral artery disease resulting in bilateral [id number] amputation. -Continue atorvastatin and aspirin 325 daily (not sure why he is taking 325 mg rather than the 81 mg) (5) S/P bilateral below knee amputation: Code(s): Z89.512 - Acquired absence of left leg below knee; Z89.511 - Acquired absence of right leg below knee Status: Acute Assessment and Plan: See above -Wound care seeing for pressure wound (6) HTN (hypertension): Code(s): I10 - Essential (primary) hypertension Status: Chronic Assessment and Plan: -Losartan held. Continue amlodipine and Bystolic -Continue to monitor Hospitalist MIPS Advance Care Plan I have confirmed that the patient's Advanced Care Plan is present, code status is documented, or surrogate decision maker is listed in patient medical record.: Yes Medication Reconciliation I have utilized all available resources to obtain, update and review the patients current medications (includes all prescriptions, OTC, herbals, cannabis, and nutritional supplements).: Yes The patient is not eligible for med reconciliation; the patient is in a emergent medical situation where delaying treatment would jeopardize the patients health.: No
--- NOTE | 2025-06-08 11:55 | PC.NURSE ---
On 06/08/25, the student, Charlie Navarrete, provided care and completed [facility] documentation on this patient. I have reviewed the student's documentation and agree with the findings.
[2025-06-08] MEDS: CLOBETASOL PROPIONATE 0.05% CREAM 15 GM 1 APPLIC TOPICAL (12:37)
--- NOTE | 2025-06-08 13:38 | PM.CNCAR ---
Assessment and Plan Assessment and plan (1) Atrial fibrillation: Code(s): I48.91 - Unspecified atrial fibrillation Status: Acute Assessment and Plan: This is not a new diagnosis. I discussed the diagnosis of atrial fibrillation with the patient and his is at the bedside including pathophysiology, management strategies, and risks/complications of atrial fibrillation. Discussed the indication and recommendation for anticoagulation for stroke risk reduction. Patient is adamant that he does not want to be on any sort of anticoagulation aside from aspirin because of history of has significant bruising with anticoagulation. He does understand that and accepts the increased stroke risk with atrial fibrillation and the choice not to take anticoagulation. His heart rate is well controlled on his current medical regimen. Therefore, do not have any specific recommendations to make in this situation. An echocardiogram has been ordered and will be reviewed. From my point of view, he does not need to remain hospitalized. Cardiology will sign off. Please do not hesitate to call questions. History of Present Illness History of Present Illness Consult date/time: 06/08/25 13:38 Requesting physician: Alyssa Frey PA-C Consult reason: atrial fibrillation Reason For Visit: Near syncope Narrative: Jace Winter this 80-year-old male admitted to the hospital following a fall. Cardiology is consulted for atrial fibrillation. This is a patient with history of atrial fibrillation with EKG demonstrating atrial fibrillation in September of 2022. Patient also states that he was told that he had atrial fibrillation during any hospitalizations is February but states that he was not placed on any new medications for this. He does have a history of being anticoagulated following his amputations for DVT prophylaxis. He states that he developed significant bruising, therefore his primary care doctor discontinued his anticoagulation and switched him to full-dose aspirin. He does not think that he was on anticoagulation for atrial fibrillation at any time. He does not have any chest pain, palpitations, or shortness of breath. He is in atrial fibrillation with controlled heart rate at the time of my evaluation. Review of Systems Review of Systems: All systems reviewed & are unremarkable except as noted in HPI and below PMFSH Past Medical History Medical History Hyperlipemia C. difficile colitis Optic nerve atrophy Normal colonoscopy 05/14 Repeat 05/25 Back pain Peripheral arterial disease Osteoarthritis of knees, bilateral Osteoarthritis of shoulders, bilateral Phantom pain HTN (hypertension) Cataracts, bilateral maturing BPH (benign prostatic hyperplasia) Surgical History Surgical History History of right knee joint replacement History of inguinal hernia repair 2017 History of appendectomy S/P bilateral below knee amputation 2018 Family History Family History Father Heart disease Hypertension Mother Acute myocardial infarction Social History Social History Social History: Patient lives with his in a 1 level home with 2 stairs to enter. Patient has a ramp that he uses. Patient was independent prior with no assistive devices prior to his bilateral below-knee amputation. Patient was also working full-time in the [employer] industry. Smoking status: Never smoker Second hand tobacco smoke exposure: No Alcohol intake: current Drinks per week: 7 Alcohol use details: 1-2 glasses of wine daily Substance use: never Substance use type: painkillers Other substance usage details: Tramadol to help sleep Lack of Transportation: No Lack of Food: Never True Current Housing: I Have Housing Concerned About Future Housing: No Difficulty Paying Gas/Electric Bills: No Difficulty Paying for Meds: No Currently Unemployed: No Education: Bachelor's Degree Difficulty w/ Childcare or Family Care: No Living arrangements: with family Additional living arrangements comments: Occupation/Education: retired Gender identity (if verbalized by the patient): Male Sexual Orientation (if Verbalized by the Patient): Straight or Heterosexual Spiritual care concerns: No Agree to blood products: Yes Meds Home Medications and Allergies Home Medications ?Medication ?Instructions ?Recorded ?Confirmed ?Type aspirin 325 mg tablet 325 mg PO DAILY 03/28/21 06/08/25 History coenzyme Q10 200 mg capsule 200 mg PO DAILY 03/28/21 06/08/25 History docusate sodium 100 mg capsule 100 mg PO HS 03/28/21 06/08/25 History (Colace) flaxseed oil 1,300 mg-omega 3,6,9 2 cap PO DAILY 03/28/21 06/08/25 History 845 mg-117 mg-117 mg capsule [id number] 300 mcg-K 60 1 tablet PO DAILY 03/28/21 06/08/25 History mcg-lycop 600 mcg-lutein 300 mcg tablet (Centrum Silver Ultra Men's) vitamin B complex 1 tablet PO DAILY 03/28/21 06/08/25 History melatonin 3 mg tablet 3 mg PO QHS PRN sleep 08/02/22 06/08/25 History silver sulfadiazine 1 % topical 1 applic topical DAILY #85 grams 03/17/24 06/08/25 Rx cream nebivolol 10 mg tablet (Bystolic) 10 mg PO DAILY #90 tabs 04/15/24 06/08/25 Rx acetaminophen 500 mg tablet 1,000 mg PO BID PRN pain 06/24/24 06/08/25 History (Tylenol Extra Strength) mupirocin 2 % topical ointment 1 applic topical BID PRN itching 06/24/24 06/08/25 History losartan 100 mg tablet 100 mg PO DAILY #90 tabs 08/21/24 06/08/25 Rx tamsulosin 0.4 mg capsule See Rx Instructions .Route 10/30/24 06/08/25 Rx .COMPLEX #90 caps tramadol 50 mg tablet 50 mg PO Q6H PRN Pain (Scale Score 12/16/24 06/08/25 Rx 4-6) #120 tabs nystatin 100,000 unit/gram topical 1 applic topical BID PRN Itching 01/06/25 06/08/25 Rx powder #60 grams gabapentin 300 mg capsule See Rx Instructions .Route 01/15/25 06/08/25 Rx .COMPLEX #810 caps carboxymethylcellulose 0.5 1 drp EACH EYE QAM 03/18/25 06/08/25 History %-glycerin 0.9 % eye drops (Refresh Optive) cholecalciferol (vitamin D3) 25 25 mcg PO DAILY 03/18/25 06/08/25 History mcg (1,000 unit) capsule (Vitamin D3) flaxseed oil 1,000 mg capsule 1,000 mg PO BID 03/18/25 06/08/25 History loratadine 10 mg tablet (Claritin) 10 mg PO DAILY 03/18/25 06/08/25 History white petrolatum-mineral oil 94 1 applic EACH EYE QHS 03/18/25 06/08/25 History %-3 % eye ointment (Systane Nighttime) amlodipine 5 mg tablet 5 mg PO DAILY #90 tabs 04/27/25 06/08/25 Rx clobetasol 0.05 % scalp solution 1 applic topical DAILY #50 mL 04/28/25 06/08/25 Rx acyclovir 400 mg tablet See Rx Instructions .Route 06/03/25 06/08/25 Rx .COMPLEX #180 tabs clobetasol 0.05 % topical cream 1 applic topical BID PRN itching 06/08/25 06/08/25 History coenzyme Q10 200 mg capsule (Co 200 mg PO DAILY 06/08/25 06/08/25 History Q-10) collagenase clostridium histo. 250 1 applic topical DAILY PRN wound 06/08/25 06/08/25 History unit/gram topical ointment (Santyl) care cyclosporine 0.05 % eye drops in a 1 drp EACH EYE Q12H 06/08/25 06/08/25 History dropperette finasteride 5 mg tablet 5 mg PO HS 06/08/25 06/08/25 History meloxicam 15 mg tablet 15 mg PO HS 06/08/25 06/08/25 History mirabegron 50 mg tablet,extended 50 mg PO HS 06/08/25 06/08/25 History release 24 hr (Myrbetriq) polyethylene glycol 3350 17 17 g PO DAILY 06/08/25 06/08/25 History gram/dose oral powder (Miralax) simvastatin 10 mg tablet 10 mg PO QPM 06/08/25 06/08/25 History solifenacin 5 mg tablet (Vesicare) 5 mg PO HS 06/08/25 06/08/25 History Allergies Allergy/AdvReac Type Severity Reaction Status Date / Time Opioids - Morphine Analogues AdvReac Severe Itching Verified 06/08/25 02:54 latex AdvReac Unknown Itching Verified 06/08/25 02:54 Vital Signs Vital Signs - 24 hr 06/07/25 20:45 06/07/25 21:57 06/07/25 23:05 Temperature 36.7 C Pulse Rate 75 65 81 Respiratory Rate 14 15 Blood Pressure 128/56 L Pulse Oximetry 94 98 Oxygen Delivery Room Air 06/07/25 23:18 06/08/25 00:17 06/08/25 01:47 Temperature Pulse Rate 83 81 72 Respiratory Rate 13 13 13 Blood Pressure 134/61 124/46 L 124/60 Pulse Oximetry 96 98 98 Oxygen Delivery 06/08/25 02:13 06/08/25 02:35 06/08/25 04:00 Temperature 36.3 C L Pulse Rate 83 77 75 Respiratory Rate 19 17 Blood Pressure 124/60 144/68 H Pulse Oximetry 98 98 Oxygen Delivery 06/08/25 04:15 06/08/25 08:28 06/08/25 08:28 Temperature 35.8 C L Pulse Rate 69 80 80 Respiratory Rate 17 17 Blood Pressure 153/63 H Pulse Oximetry 97 97 Oxygen Delivery Room Air 06/08/25 08:28 06/08/25 11:15 06/08/25 11:17 Temperature Pulse Rate 78 70 83 Respiratory Rate 12 16 Blood Pressure 148/68 H 157/88 H Pulse Oximetry 96 97 Oxygen Delivery 06/08/25 11:21 06/08/25 11:22 06/08/25 12:00 Temperature Pulse Rate 70 83 75 Respiratory Rate Blood Pressure 148/68 H 157/88 H Pulse Oximetry Oxygen Delivery 06/08/25 13:23 Temperature 36.6 C Pulse Rate 81 Respiratory Rate 18 Blood Pressure 125/59 L Pulse Oximetry 96 Oxygen Delivery Exam Const: General: comfortable, no acute distress, alert and awake Orientation/consciousness: patient oriented x3 HENMT: Head: normal to inspection Eyes: General: appearance normal, both eyes and all related structures Pupils: Equal, round and reactive pupils present Neck: Neck: normal visual inspection, supple and no JVD Carotids: normal carotid upstroke Resp: Effort & Inspection: normal respiratory effort Auscultation: clear to auscultation bilaterally Cardio: Rate: regular rate Rhythm: abnormal rhythm irregularly irregular Heart sounds: S1 normal heart sound present, S2 normal heart sound present and no murmurs GI: Auscultation: normal bowel sounds Skin: General skin exam: normal color Neuro: General: patient oriented x3 Cranial nerves: Yes Equal, round and reactive pupils present Extrem: General: abnormal to inspection Other: Bilateral BKA Psych: Appearance: grossly normal Mental Status: mental status grossly normal Results Labs and Meds 06/08/25 04:23 06/08/25 08:24 Lab results: Cardiac Enzymes 06/07/25 06/08/25 06/08/25 Range/Units 21:53 00:49 04:23 AST 45 (17-59) U/L Troponin I < 0.012 < 0.012 < 0.012 (0.000-0.034) ng/mL Coagulation 06/07/25 Range/Units 21:53 PT 13.4 (11.1-14.7) Seconds APTT 32.7 (22.3-36.8) Seconds CBC 06/07/25 06/08/25 Range/Units 21:54 04:23 WBC 12.7 H 11.8 H (4.5-10.0) K/mm3 RBC 3.91 L 4.11 L (4.6-6.20) M/mm3 Hgb 11.6 L 12.4 L (14.0-18.0) g/dL Hct 35.3 L 37.6 L (42.0-52.0) % Plt Count 244 255 (150-375) k/mm3 Lymph # (Auto) 0.95 (0.9-3.2) K/mm3 [place] # (Auto) 0.8 H (0.1-0.6) K/mm3 Eos # (Auto) 0.3 (0-0.3) K/mm3 Baso # (Auto) 0.1 (0.0-0.1) K/mm3 Comprehensive Metabolic Panel 06/07/25 06/08/25 06/08/25 Range/Units 21:53 04:23 08:24 Sodium 123 L 133 L 134 L (137-145) mmol/L Potassium 5.0 5.1 H 4.7 (3.4-5.0) mmol/L Chloride 87 L 95 L 95 L (98-107) mmol/L Carbon Dioxide 30 31 H 30 (22-30) mmol/L BUN 15 12 11 (9-20) mg/dL Creatinine 0.76 0.79 0.69 L (0.7-1.3) mg/dL Glucose 108 107 127 H (65-110) mg/dL Calcium 8.3 L 8.7 8.9 (8.4-10.2) mg/dL AST 45 (17-59) U/L ALT 23 (6-50) U/L Alkaline Phosphatase 60 (38-126) U/L Total Protein 7.4 (6.3-8.2) g/dL Albumin 4.3 (3.5-5.1) g/dL Intake and Output 10/12/25 10/13/25 10/13/25 23:59 07:59 15:59 Intake Total 1000 100 480 Output Total 800 900 Balance 200 -800 480 Intake: IV 1000 Sodium Chloride 0.9% IV 1,000 1000 ml @ 999 mls/hr IV CONT .Q1H1M STA Rx#:[id number] Oral 100 480 Output: Urine 800 900 Other: # Incontinent Voids 4 Patient Weight 06/08/25 23:59 Weight 110.9 kg
[2025-06-08] MEDS: PERFLUTREN LIPID MICROSPHERES 1.5 ML VIAL DILUTED TO 10 ML TOTAL VOLUME IV PUSH (13:45)
--- NOTE | 2025-06-08 14:33 | IVDEFINITY ---
Prior to administration of IV Definity the patient was educated on the risks and benefits of the imaging enhancing agent including potential adverse side effects. The patient verbalized understanding. Allergies were verified. No exclusion criteria were identified and at least one of the following inclusion criteria were met: 1) physician request, 2) patient technically difficult to image (per the [place] [employer] guidelines of two or more segments not discernable within the apical view), or 3) questionable left ventricular function. ?
--- NOTE | 2025-06-08 14:58 | PCOTNOTE ---
Attempted to see for OT evaluation. Patient's has bilateral LE prosthetics and the did not bring them today. Will continue to attempt.
--- NOTE | 2025-06-08 15:27 | P.DS_ITS ---
DS: Admitting Diagnosis Discharge Date 06/08/25 Admitting Diagnosis Fall, dizziness DS: Discharge Diagnosis Discharge Diagnosis (1) Fall from ground level: Code(s): W18.30XA - Fall on same level, unspecified, initial encounter Status: Acute Assessment and Plan: Patient had a fall on 06/07/25 that resulted in him presenting to the ED. he was found to have multiple rib fractures. -It is believed that fall is likely from untreated atrial fibrillation. -Pain medication p.r.n. -PT OT ordered. (2) Atrial fibrillation: Code(s): I48.91 - Unspecified atrial fibrillation Status: Acute Assessment and Plan: On review of chart it was found that patient had AFib back in February. When asking about a he said that he was never told he had AFib. He does take bystolic and aspirin. Patient states that he does not want to be taking a blood thinner. It was explained that this leads to a much higher instance of stroke in patients with AFib that are not on blood thinners. He was okay with this at the time. -Consult Cardiology. (3) Elevated brain natriuretic peptide (BNP) level: Code(s): R79.89 - Other specified abnormal findings of blood chemistry Status: Acute Assessment and Plan: BNP elevated to 2280 -Cardiology consulted -Echocardiogram ordered (4) Peripheral arterial disease: Code(s): I73.9 - Peripheral vascular disease, unspecified Status: Acute Assessment and Plan: Peripheral artery disease resulting in bilateral [id number] amputation. -Continue atorvastatin and aspirin 325 daily (not sure why he is taking 325 mg rather than the 81 mg) (5) S/P bilateral below knee amputation: Code(s): Z89.512 - Acquired absence of left leg below knee; Z89.511 - Acquired absence of right leg below knee Status: Acute Assessment and Plan: See above -Wound care seeing for pressure wound (6) HTN (hypertension): Code(s): I10 - Essential (primary) hypertension Status: Chronic Assessment and Plan: -Losartan held. Continue amlodipine and Bystolic -Continue to monitor DS: Summary Hospital Course Hospital Course: This is an 80-year-old male that presented to the ED on 06/07/2025 for evaluation of dizziness and a fall. Patient said he had gotten up from his chair after dinner he was going to go to the bathroom and after he had stood up he had the experience some dizziness. He had a fall and landed on a cabinet. He was unable to get up and his had called 911 for an ambulance to take him to the ED. he did not have loss of consciousness or strike his head during the fall. Patient has a past medical history of bilateral [id number] amputations due to lack of proper blood flow according to him. He denies history of diabetes. He does have a wound on his right stump that he cares for at home. He has past medical history of hypertension, hyperlipidemia, neuropathy and BPH. Patient denies any history of abnormal heart rhythms however further questioning patient had a traumatic injury back in February where he broke multiple ribs was told that he had AFib and as AFib but no one has done anything about his AFib. Patient denies use of any beta-blockers or calcium channel blockers. (But he is on bystolic and amlodipine and aspirin.) He has not seen a radiology interventional physician. While he was in the ED he was found to have AFib with a rate of 67, multiple PVCs and aberrant conduction of supraventricular beats. CBC reveals a white blood cell count 12.7, hemoglobin 0.6. Coags within normal limits. Comprehensive metabolic panel is sodium 123, chloride of 87, calcium of 8.3. Lipase 31. BNP is 2280. Total creatine kinase is 41. Magnesium is 2.1. Lactic acid is 1.0. Urinalysis is without any significant abnormalities. UDS is negative. Ethyl alcohol is less than 10. CT of the head reveals no evidence of acute intracranial abnormality. No intracranial hemorrhage, mass effect or edema. No skull fracture. Chronic microvascular ischemic changes. Atrophy. CT of the chest reveals nondisplaced fractures of the right lateral 7th and 8th ribs. No pneumothorax. Scattered linear atelectasis/scarring. No pleural effusion. No acute osseous abnormality. Subacute fractures of the left anterior 5th and 6th and 7th ribs with callus formation. Old fractures of the left lower lateral ribs. CT of the abdomen pelvis reveals no acute traumatic intra-abdominal injury. No acute osseous abnormality. Bilateral hydroureteronephrosis without obstructing ure teral calculus. Bilateral renal cortical low attenuation changes, artifact versus infection. Urinary bladder wall thickening, nonspecific. Correlate with urinalysis. No bowel obstruction or inflammation. Hepatic steatosis. Scattered hepatic cyst and additional subcentimeter hypodensities too small to definitively characterize. Right hand x-ray reveals no evidence of acute fracture or dislocation. Patient admitted for further workup of AFib. This could be reason for his dizziness and fall. Cardiology was consulted on the case. Patient refused all cardiac medications and recommendations. He did have an echocardiogram done today but the results are not back. Due to him not wanting to do any medications or interventions. We will discharge him today and call him if echocardiogram results are abnormal. Discharge home today with no medication changes. Time Spent with Patient Time attestation: Total time spent providing and/or coordinating discharge services: Exam Narrative: GENERAL: Comfortable, no acute distress HENMT: moist mucous membranes EYES: EOM intact b/l NECK: no lymphadenopathy RESPIRATORY: clear to auscultation, no increased respiratory effort CARDIO: Irregular rhythm, rate controlled. GI: soft, nontender, bowel sounds present SKIN/EXTREMITIES: bilateral BKA, pressure wound on right numb NEURO: PROM intact, answers questions appropriately, A&O x4 DS: Data Data Completed and Pending Labs on day of discharge: Labs from last 24 hours 06/08/25 06/08/25 06/08/25 08:24 04:23 00:49 WBC 11.8 H RBC 4.11 L Hgb 12.4 L Hct 37.6 L MCV 91.5 MCH 30.2 MCHC 33.0 RDW 13.2 Plt Count 255 MPV 8.5 Immature Gran % (Auto) Neut % (Auto) Lymph % (Auto) [place] % (Auto) Eos % (Auto) Baso % (Auto) Lymph # (Auto) [place] # (Auto) Eos # (Auto) Baso # (Auto) Abs Immat Gran (auto) Absolute Neuts (auto) Absolute Nucleated RBC Nucleated RBC % PT INR APTT Sodium 134 L 133 L Potassium 4.7 5.1 H Chloride 95 L 95 L Carbon Dioxide 30 31 H Anion Gap 9 7 BUN 11 12 Creatinine 0.69 L 0.79 Estim Creat Clear Calc 90 80 Estimated GFR > 60 > 60 Glucose 127 H 107 Lactic Acid Calcium 8.9 8.7 Magnesium Total Bilirubin AST ALT Alkaline Phosphatase Total Creatine Kinase Troponin I < 0.012 < 0.012 NT-Pro-B Natriuret Pep Total Protein Albumin Lipase TSH (Reflex) Urine Color Urine Appearance Urine pH Ur Specific [place] Urine Protein Urine Glucose (UA) Urine Ketones Ur Blood (Man) Urine Nitrate Urine Bilirubin Urine Urobilinogen Leukocyte Esterase Rfl Urine Opiates Screen Urine Methadone Screen Ur Barbiturates Screen Ur Phencyclidine Scrn Ur Amphetamine Screen U Benzodiazepines Scrn Urine Cocaine Screen U Cannabinoids Screen Ethyl Alcohol 06/07/25 06/07/25 21:54 21:53 WBC 12.7 H RBC 3.91 L Hgb 11.6 L Hct 35.3 L MCV 90.3 MCH 29.7 MCHC 32.9 RDW 13.3 Plt Count 244 MPV 8.7 Immature Gran % (Auto) 0.7 H Neut % (Auto) 82.3 H Lymph % (Auto) 7.5 L [place] % (Auto) 6.5 Eos % (Auto) 2.2 Baso % (Auto) 0.8 Lymph # (Auto) 0.95 [place] # (Auto) 0.8 H Eos # (Auto) 0.3 Baso # (Auto) 0.1 Abs Immat Gran (auto) 0.09 H Absolute Neuts (auto) 10.5 H Absolute Nucleated RBC 0.000 Nucleated RBC % 0.0 PT 13.4 INR 1.0 APTT 32.7 Sodium 123 L Potassium 5.0 Chloride 87 L Carbon Dioxide 30 Anion Gap 6 BUN 15 Creatinine 0.76 Estim Creat Clear Calc 82 Estimated GFR > 60 Glucose 108 Lactic Acid 1.0 Calcium 8.3 L Magnesium 2.1 Total Bilirubin 0.3 AST 45 ALT 23 Alkaline Phosphatase 60 Total Creatine Kinase 41 L Troponin I < 0.012 NT-Pro-B Natriuret Pep 2280 H Total Protein 7.4 Albumin 4.3 Lipase 31 TSH (Reflex) 3.540 Urine Color Yellow Urine Appearance Clear Urine pH 8.0 Ur Specific [place] 1.010 Urine Protein Negative Urine Glucose (UA) Negative Urine Ketones Negative Ur Blood (Man) Negative Urine Nitrate Negative Urine Bilirubin Negative Urine Urobilinogen 0.2 Leukocyte Esterase Rfl Negative Urine Opiates Screen Negative Urine Methadone Screen Negative Ur Barbiturates Screen Negative Ur Phencyclidine Scrn Negative Ur Amphetamine Screen Negative U Benzodiazepines Scrn Negative Urine Cocaine Screen Negative U Cannabinoids Screen Negative Ethyl Alcohol < 10 Discharge Plan Discharge Consulting providers: Sheryl Garcia Discharging Clinician: Alyssa Frey Patient Disposition: Home Activity: as tolerated and no preference Diet: heart healthy Patient Instructions: Antibiotic Form Patient Language: Jamaican Stand Alone Forms: General Discharge Information Follow-up/Referrals: Jesus Trinh MD [Primary Care Provider, Family Practice] Discharge Medications: Continued nebivolol [Bystolic] 10 mg tablet 10 mg PO DAILY Qty: 90 2RF mupirocin 2 % ointment 1 applic topical BID PRN (Reason: itching) acetaminophen [Tylenol Extra Strength] 500 mg tablet 1,000 mg PO BID PRN (Reason: pain) cholecalciferol (vitamin D3) [Vitamin D3] 25 mcg (1,000 unit) capsule 25 mcg PO DAILY flaxseed oil 1,000 mg capsule 1,000 mg PO BID Rx Instructions: administer with meals loratadine [Claritin] 10 mg tablet 10 mg PO DAILY Refresh Optive 0.5-0.9 % drops 1 drp EACH EYE QAM Systane Nighttime 94-3 % ointment 1 applic EACH EYE QHS melatonin 3 mg tablet 3 mg PO QHS PRN (Reason: sleep) cyclosporine 0.05 % dropperette 1 drp EACH EYE Q12H solifenacin [Vesicare] 5 mg tablet 5 mg PO HS Santyl 250 unit/gram ointment 1 applic topical DAILY PRN (Reason: wound care) coenzyme Q10 [Co Q-10] 200 mg capsule 200 mg PO DAILY polyethylene glycol 3350 [Miralax] 17 gram/dose powder 17 g PO DAILY meloxicam 15 mg tablet 15 mg PO HS Patient Comments: HOLD 7 DAYS simvastatin 10 mg tablet 10 mg PO QPM clobetasol 0.05 % cream 1 applic topical BID PRN (Reason: itching) finasteride 5 mg tablet 5 mg PO HS mirabegron [Myrbetriq] 50 mg tablet extended release 24 hr 50 mg PO HS silver sulfadiazine 1 % cream 1 applic topical DAILY Qty: 85 1RF Patient Comments: to stump as needed Rx Instructions: apply a 1.5 mm thickness losartan 100 mg tablet 100 mg PO DAILY Qty: 90 3RF tamsulosin 0.4 mg capsule See Rx Instructions .ROUTE .COMPLEX Qty: 90 2RF Dose Instruction: TAKE 1 CAPSULE BY MOUTH DAILY Rx Instructions: TAKE 1 CAPSULE BY MOUTH DAILY tramadol 50 mg tablet 50 mg PO Q6H PRN (Reason: Pain (Scale Score 4-6)) Qty: 120 5RF nystatin 100,000 unit/gram powder 1 applic TOPICAL BID PRN (Reason: Itching) Qty: 60 2RF gabapentin 300 mg capsule See Rx Instructions .ROUTE .COMPLEX Qty: 810 2RF Rx Instructions: Take 2( 600mg) in AM and at noon, 2 (300 mg) at 1700, and 3 (900 mg) at bedtime. Total of 2100 mg a day. amlodipine 5 mg tablet 5 mg PO DAILY Qty: 90 2RF clobetasol 0.05 % solution 1 applic topical DAILY Qty: 50 1RF acyclovir 400 mg tablet See Rx Instructions .ROUTE .COMPLEX Qty: 180 1RF Dose Instruction: TAKE 1 TABLET BY MOUTH TWICE DAILY Rx Instructions: TAKE 1 TABLET BY MOUTH TWICE DAILY aspirin 325 mg Tablet 325 mg PO DAILY Patient Comments: HOLD 7 DAYS PREOP docusate sodium [Colace] 100 mg Capsule 100 mg PO HS vitamin B complex Tablet 1 tablet PO DAILY coenzyme Q10 200 mg Capsule 200 mg PO DAILY Patient Comments: legs Centrum Silver Ultra Men's 300-600-300 mcg Tablet 1 tablet PO DAILY Patient Comments: patient takes Complete Multivitamin for men 50+ flaxseed oil-omega 3,6,9 1,300 mg-845 mg -117 mg-117 mg Capsule 2 cap PO DAILY Date of admission: 06/08/25 00:41 Primary Care Provider: Jesus Trinh Admitting Provider: Alexia Baltazar Attending physician on admission: Alexia Baltazar Condition: Stable Hospitalist MIPS Heart Failure (Exclusion) Patient has history of Heart Transplant or Left Ventricular Assistive Device?: No IF YES, STOP HERE Heart Failure (Qualifier) Patient has current or prior documentation of LVEF less than or equal to 40%, or mod/servere depressed LVSF?: No IF NO, STOP HERE
== END 2025-06-08 16:46 | disposition home or self-care (01) ==
LOC: ANHED 06-08 00:40 → ANH2MED 06-08 01:56
PROVIDERS: Admitting Provider Internal Medicine; Emergency Provider Student in an Organized Health Care Education/Training Program; PCP Family Medicine Adolescent Medicine; Visit Provider Internal Medicine
DX: I48.91 Unspecified atrial fibrillation (principal); S22.41XA Multiple fractures of ribs, right side, initial encounter for closed fracture; W18.30XA Fall on same level, unspecified, initial encounter; R79.89 Other specified abnormal findings of blood chemistry; N13.30 Unspecified hydronephrosis; K76.0 Fatty (change of) liver, not elsewhere classified; I45.10 Unspecified right bundle-branch block; N32.89 Other specified disorders of bladder; I73.9 Peripheral vascular disease, unspecified; E78.5 Hyperlipidemia, unspecified; I10 Essential (primary) hypertension; L89.899 Pressure ulcer of other site, unspecified stage; T87.89 Other complications of amputation stump; Z23 Encounter for immunization; G54.6 Phantom limb syndrome with pain; M19.041 Primary osteoarthritis, right hand; M17.0 Bilateral primary osteoarthritis of knee; M19.012 Primary osteoarthritis, left shoulder; M19.011 Primary osteoarthritis, right shoulder; N40.0 Benign prostatic hyperplasia without lower urinary tract symptoms; Z89.512 Acquired absence of left leg below knee; Z89.511 Acquired absence of right leg below knee; Z96.651 Presence of right artificial knee joint; Z79.82 Long term (current) use of aspirin; Z79.899 Other long term (current) drug therapy; Z79.2 Long term (current) use of antibiotics; Z79.621 Long term (current) use of calcineurin inhibitor; Z79.1 Long term (current) use of non-steroidal anti-inflammatories (NSAID); Z79.891 Long term (current) use of opiate analgesic; Z86.19 Personal history of other infectious and parasitic diseases; H47.20 Unspecified optic atrophy; Z87.81 Personal history of (healed) traumatic fracture; H26.9 Unspecified cataract; Z90.49 Acquired absence of other specified parts of digestive tract; Z82.49 Family history of ischemic heart disease and other diseases of the circulatory system
CPT/HCPCS: 36415; 70450; 71275; 73130; 74177; 80048; 80053; 80307; 81003; 82077; 82550; 83605; 83690; 83735; 83880; 84443; 84484; 85025; 85027; 85610; 85730; 90471; 90715; 93005; 93306; 96360; 96361; 96374; 96375; 99212; 99285; A9270; G0378; G0463; J7030; J7070; Q9957; Q9967

== ENCOUNTER 2025-08-21 14:48 | Emergency (ER) | payer MEDICARE, SELFPAY ==
[2025-08-21 15:08] VITALS: BP 137/58; PULSE 67; RESP 16; TEMP 36.9; O2SAT 98
== END 2025-08-21 15:16 | disposition left against medical advice (07) ==
PROVIDERS: PCP Family Medicine Adolescent Medicine
DX: Z53.21 Procedure and treatment not carried out due to patient leaving prior to being seen by health care provider (principal)
CPT/HCPCS: 99199